=== PATIENT | male | born 1965 | race Hispanic/Latino ===

== ENCOUNTER 2019-12-27 07:46 | Outpatient (CLI) | payer BC ==
--- NOTE | 2019-12-27 08:48 | ULT ---
US Abdominal History: Abdominal pain Comparison: None. Findings: Real-time grayscale and color evaluation of the abdomen was performed. The visualized portion of the aorta, IVC, and pancreas are unremarkable. Diffuse increased hepatic ec hotexture without mass. Focal fatty sparing near the gallbladder fossa. Liver measures 18.2 cm in length. No pericholecystic fluid. Portal vein is patent with antegrade flow . Common bile duct is normal measuring 4 mm. Nonmobile sub-5 mm gallbladder polyps. Right kidney measures 11.4 x 6.4 x 6.1 cm without mass, hydronephrosis, or abnormal calcifications. L eft kidney measures 12.7 x 6.4 x 6.8 cm without mass, hydronephrosis, or abnormal calcifications. Spleen measures 13 cm in length. Impression: 1. Sub-5 mm gallbladder polyps for which no follow-up is required. No evidence for cholecystitis. 2. Hepatomegaly with mild diffuse increased echotexture suggesting steatosis with focal fatty sparing near the gallbladder fossa. 3. Mild hepatomegaly.
== END 2019-12-27 07:47 | disposition home or self-care (01) ==
LOC: SCSULT 07:46
PROVIDERS: ATTEND Family Medicine
DX: R10.84 Generalized abdominal pain (principal); R16.0 Hepatomegaly, not elsewhere classified; K82.4 Cholesterolosis of gallbladder
CPT/HCPCS: 93975

== ENCOUNTER 2020-01-07 10:17 | Outpatient (CLI) | payer BC ==
--- NOTE | 2020-01-07 10:58 | CT ---
CT Abdomen Pelvis W Con History: Right-sided abdominal pain Comparison: Ultrasound December 27, 2019 for reference Findings: Lung bases are clear. No pericardial effusion. Diffuse hepatic steatosis. No intrahepatic or extrahepatic biliary dilatation. Adrenal glands are unremarkable. No hydronephrosis. No retroperitoneal periaortic adenopathy. Although limited due to motion, there is some low-grade inflammatory change around the appendiceal ba se with mild mucosal hyperenhancement and some low-grade inflammation of the adjacent ileocolic mesentery. This has appearance of relatively recent partially resolved appendicitis. Moderate diverticular disease of the sigmoid colon without active current inflammation. Ileocecal ramon ction is normal. The aortoiliac contour is nonaneurysmal. Small fat-containing right indirect inguinal hernia. The cowart creas unremarkable. Adrenal glands are unremarkable. No hydronephrosis. Mild facet arthrosis lower lumbar spine. Impression: 1. Low-grade inflammatory stranding along the medial margin appendiceal base with mucosal hyperenhanc ement and stranding along the ileocolic mesentery. This has appearance of subacute resolving appendicitis. Underlying appendiceal base mass is felt somewhat less likely. Follow-up recommended. 2. Hepatic steatosis. 3. Moderate diverticular disease sigmoid colon without active current inflammation.
[2020-01-07] MEDS ORDERED: Iopamidol-370 76% 500 ML 1 ML ONE (14:50)
== END 2020-01-07 10:18 | disposition home or self-care (01) ==
LOC: BICCT 10:17
PROVIDERS: ATTEND Internal Medicine Gastroenterology
DX: Z12.11 Encounter for screening for malignant neoplasm of colon (principal); K76.0 Fatty (change of) liver, not elsewhere classified; R10.31 Right lower quadrant pain; K57.30 Diverticulosis of large intestine without perforation or abscess without bleeding
CPT/HCPCS: 74177; Q9967

== ENCOUNTER 2020-01-16 14:37 | Outpatient (CLI) | payer BC ==
[2020-01-16 15:54] LABS: #Basophils 0.1 thou/uL (0.0-0.2); #Eosinphils 0.2 thou/uL (0.0-0.7); #Lymphocytes 2.5 thou/uL (1.20-3.40); #Monocytes 0.6 thou/uL (0.11-0.59); #Neutrophils 3.1 thou/uL (1.40-6.50); %Eosinophils 3.6 % (0.0-10.0); %Monocytes 8.6 % (0.0-10.0); %Neutrophils 47.8 % (42.0-75.0); Hemoglobin 14.9 g/dL (14.0-18.0); Mean Corpuscular HGB CONC 33.2 g/dL (32.0-36.0); Mean Corpuscular Hemoglobin 31.8 pg (27.0-31.0); Mean Corpuscular Volume 95.7 fL (78.0-98.0); Mean Platelet Volume 11.8 fL (7.4-10.4); Platelet Count 138 thou/uL (130-400); RBC Distribution Width 11.9 % (11.5-14.5); Red Blood Cell (RBC) Count 4.69 mill/uL (4.70-6.10); White Blood Cell (WBC) Count 6.5 thou/uL (4.8-10.8)
[2020-01-16 16:18] LABS: ALT (SGPT) 33 U/L (8-55); AST (SGOT) 28 U/L (5-34); Albumin 3.9 g/dL (3.5-5.0); Alkaline Phosphatase 77 U/L (40-110); Anion Gap 13 mmol/L (10-20); BUN (Urea Nitrogen) 12 mg/dL (8.4-25.7); Bilirubin, Direct 0.1 mg/dL (0.1-0.3); Bilirubin, Total 0.4 mg/dL (0.2-1.2); Calc. Creatinine Clearance 0 mL/min (70-130); Calcium 8.8 mg/dL (7.8-10.44); Carbon Dioxide 23 mmol/L (22-29); Chloride 108 mmol/L (98-107); Estimated GFR-MDRD 81; Globulin 3.2 g/dL (2.4-3.5); Glucose 85 mg/dL (70-105); Potassium 3.8 mmol/L (3.5-5.1); Protein, Total 7.1 g/dL (6.0-8.3); Sodium 140 mmol/L (136-145)
--- NOTE | 2020-01-17 12:12 | EKG ---
Test Reason : Blood Pressure : / mmHG Vent. Rate : 057 BPM Atrial Rate : 057 BPM P-R Int : 122 ms QRS Dur : 084 ms QT Int : 424 ms P-R-T Axes : 005 063 -08 degrees QTc Int : 412 ms Sinus bradycardia Inferior infarct , age undetermined Abnormal ECG When compared with ECG of 16-FEB-2016 17:39, Vent. rate has decreased BY 71 BPM Inferior infarct is now Present T wave inversion more evident in Inferior leads Confirmed by LIANG DIEGO, DR. Stevenson ([id number]) on 01/17/2020 12:12:18 PM Referred By: RADHA Confirmed By:DR. Elva TAVERA MD
== END 2020-01-16 14:38 | disposition home or self-care (01) ==
LOC: LABBT 14:37
PROVIDERS: ATTEND Surgery
DX: Z01.818 Encounter for other preprocedural examination (principal); K36 Other appendicitis; R79.89 Other specified abnormal findings of blood chemistry
CPT/HCPCS: 80053; 80076; 85025; 93005; 93010

== ENCOUNTER 2020-01-17 05:41 | Day surgery (SDC) | payer BC ==
[2020-01-16 15:15] VITALS: BMI 28.1
[2020-01-17] MEDS ORDERED: Fentanyl 100 MCG/2 ML VIAL ONE (06:21)
[2020-01-17] MEDS ORDERED: Bupivacaine 0.25% HCL 30 ML VIAL ONE (06:56)
[2020-01-17] MEDS ORDERED: Lidocaine 1% w/Epinephrine 1:100K 20 ML VIAL ONE (06:56)
[2020-01-17] MEDS ORDERED: Midazolam HCl 2 mg/2 ml Vial ONE (07:24)
[2020-01-17] MEDS ORDERED: SUGAMMADEX SODIUM 200 MG/2 ML VIAL ONE ×2 (08:32→08:43)
[2020-01-17] MEDS ORDERED: SUGAMMADEX SODIUM 500 MG/5 ML VIAL ONE (08:43)
[2020-01-17] MEDS ORDERED: Lidocaine 1% PF 5 ML VIAL ONE (10:52)
[2020-01-17] MEDS ORDERED: Succinylcholine Chloride 20 MG/ML 10 ml SYRINGE FS ONE (10:52)
[2020-01-17] MEDS ORDERED: Rocuronium Bromide 10 MG/ML (10ML VIAL) ONE (10:52)
[2020-01-17] MEDS ORDERED: Ketorolac Tromethamine 30 MG/ML VIAL ONE (10:52)
[2020-01-17] MEDS ORDERED: Ondansetron PF 4 MG/2 ML Vial ONE (10:52)
[2020-01-17] MEDS ORDERED: Glycopyrrolate 0.2 MG/ML 5 ML SYRINGE ONE (10:52)
[2020-01-17] MEDS ORDERED: PROPOFOL 200 MG/20 ML VIAL ONE (10:52)
--- NOTE | 2020-01-17 11:45 | OP ---
DATE OF PROCEDURE: 01/17/2020 PREOPERATIVE DIAGNOSIS: Chronic appendicitis with elevated liver function. PROCEDURE PERFORMED: Laparoscopic appendectomy with wedge liver biopsy. INDICATIONS: A 54-year-old male, who had about a month of right lower quadrant abdominal pain that he had a CT scan showing what appeared to be a mass at the base of appendix with periappendiceal stranding. He also has elevated liver functions. FINDINGS: There was inflammatory changes around the appendix, primarily at the base. I was able to try and get below this to resect at the cecum. The liver just looked fatty. DESCRIPTION OF PROCEDURE: After an informed consent was obtained, the patient was taken to the operating room, given general endotracheal anesthesia. He was placed in the supine position. Abdomen was prepped and draped in usual fashion. Local anesthesia was infiltrated subcutaneously and deep. A subumbilical incision was performed, subcu divided sharply. The fascia was grasped. Two stay sutures of 0 Vicryl placed on either side of midline. Midline incised. Digital palpation revealed no local adhesions. A blunt 12-mm trocar inserted. Pneumoperitoneum was created to a pressure of 15 mmHg. A 0-degree laparoscope inserted under direct vision, two 5-mm ports were placed, one suprapubic, one right lateral abdomen. The appendix and the cecum were pretty high almost up by the liver. There were quite a bit of adhesions in the area, these were taken down. There was still some active inflammation and some swelling of the base of the appendix. The mesoappendix was divided utilizing the LigaSure. The appendix was then divided utilizing a linear 45 mm stapler at the cecum. The appendix was then placed in an Endosac, removed from the abdomen in the Endosac. The area was irrigated. Hemostasis was assured. Then, the liver was cut in a V-manner on the edge of the right lobe with Metzenbaum scissors and this piece of the liver was removed for analysis. Hemostasis was achieved with electrocautery, but I did also have to add some Evert powder for complete hemostasis. The abdomen was irrigated, irrigation fluid removed. Trocars were removed. The fascia was closed with interrupted 0 Vicryl suture. The skin was closed with interrupted 4-0 Rapide. Dermabond applied. The patient tolerated the procedure well, transferred to Recovery in good condition. Sponge and needle count verified correct x2. Job ID: [id number]
== END 2020-01-17 11:13 | disposition home or self-care (01) ==
LOC: SDC 05:41
PROVIDERS: ATTEND Surgery
PROC: 0FB04ZX Excision of Liver, Percutaneous Endoscopic Approach, Diagnostic (ICD-10-PCS; principal; 2020-01-17)
PROC: 0DTJ4ZZ Resection of Appendix, Percutaneous Endoscopic Approach (ICD-10-PCS; principal; 2020-01-17)
DX: K36 Other appendicitis (principal); K76.0 Fatty (change of) liver, not elsewhere classified; K74.0 Hepatic fibrosis
CPT/HCPCS: 88304; 88307; 88313; J0690; J0694; J1885; J2001; J2250; J2405; J2704; J3010; S0020

== ENCOUNTER 2020-06-28 00:27 | Inpatient (IN) | payer BC, OTHER ==
[2020-06-28] MEDS ORDERED: Dexamethasone 10 MG/ML VIAL ONE (01:00)
[2020-06-28] MEDS ORDERED: cefTRIAXone\\ROCEPHIN 1 GM VIAL ONE (01:00)
[2020-06-28 01:09] LABS: #Monocytes 0.8 thou/uL (0.11-0.59); #Neutrophils 11.8 thou/uL (1.40-6.50); %Basophils 0.1 % (0.0-1.0); %Lymphocytes 7.5 % (21.0-51.0); %Monocytes 5.6 % (0.0-10.0); %Neutrophils 86.7 % (42.0-75.0); Hemoglobin 17.2 g/dL (14.0-18.0); Mean Corpuscular HGB CONC 32.8 g/dL (32.0-36.0); Mean Corpuscular Volume 94.3 fL (78.0-98.0); Mean Platelet Volume 11.4 fL (7.4-10.4); Platelet Count 120 thou/uL (130-400); RBC Distribution Width 12.4 % (11.5-14.5); Red Blood Cell (RBC) Count 5.57 mill/uL (4.70-6.10); White Blood Cell (WBC) Count 13.6 thou/uL (4.8-10.8)
[2020-06-28 01:30] LABS: ALT (SGPT) 62 U/L (8-55); AST (SGOT) 55 U/L (5-34); Albumin 3.9 g/dL (3.5-5.0); Alkaline Phosphatase 66 U/L (40-110); Anion Gap 16 mmol/L (10-20); BUN (Urea Nitrogen) 16 mg/dL (8.4-25.7); Bilirubin, Total 0.8 mg/dL (0.2-1.2); CK (CPK) 620 U/L (30-200); Calc. Creatinine Clearance 0 mL/min (70-130); Calcium 8.4 mg/dL (7.8-10.44); Carbon Dioxide 20 mmol/L (22-29); Chloride 105 mmol/L (98-107); Estimated GFR-MDRD 85; Globulin 3.8 g/dL (2.4-3.5); Glucose 137 mg/dL (70-105); Lipase 46 U/L (8-78); Potassium 3.7 mmol/L (3.5-5.1); Protein, Total 7.7 g/dL (6.0-8.3); Sodium 137 mmol/L (136-145)
[2020-06-28] MEDS ORDERED: Azithromycin 500 MG VIAL ONE (02:11)
[2020-06-28] MEDS ORDERED: Aspirin Chewable 81 MG TAB ONE (02:48)
[2020-06-28] MEDS ORDERED: Enoxaparin Sodium 80 MG/0.8 ML SYRINGE ONE (02:53)
--- NOTE | 2020-06-28 03:02 | PDOC.FPRHP ---
- History of Present Illness History of Present Illness: Pt is a 54 yo male with hx of recent travel to [place] and hx of PNA who presents with SOB. 2 weeks ago had fever for 2 days, Tmax 101F, resolved. Yesterday started having SOB, worse with activity. Traveled to [place] one week ago, had symptoms of sore throat and diagnosed with possible pneumonia and given antibiotics for 5 days, finished. Worsening of symptoms so drove here from [place] last night. Productive cough, with white sputum, no wheezing. Was hospitalized in 2016 for CAP with extensive work up. PFT's showed mild restrictive lung disease. Denies n/v, diarrhea, CAT, vision changes, dysuria, sick contacts, CP, palpitations. ED Course: Decadron, Azithromycin, Rocephin, therapeutic lovenox, 1L NS - Allergies/Adverse Reactions Allergies Allergy/AdvReac Type Severity Reaction Status Date / Time No Known Allergies Allergy Verified 01/16/20 15:15 - Home Medications Medication Instructions Recorded Confirmed Type No Known 01/16/20 06/28/20 History - History PMHx: PNA- 4 years ago PSHx: appendix-12/2019 FHx: DM, HTN Social: no Tobacco, drinks a couple of beers a day, no drug use, works as a pipefitter welder meds: none NKDA - Review of Systems General: reports: fever/chills Eyes: denies: vision changes ENT: denies: nasal congestion Respiratory: reports: cough, shortness of breath Cardiovascular: denies: chest pain, palpitation Gastrointestinal: denies: nausea, vomiting, diarrhea Genitourinary: denies: dysuria, polyuria Skin: denies: rashes, itching Musculoskeletal: denies: pain, tenderness Neurological: denies: numbness, syncope Psychological: denies: anxiety, depression - Vital signs BP: 141/95, MAP: 110, Pulse: 92, Resp: 36, Temp: 97.8 (Oral), Pain: 0, O2 sat: 94 on (3L Oxygen), - Physical Exam Constitutional: NAD, awake, alert and oriented HEENT: normocephalic and atraumatic, EOMI, no scleral icterus, grossly normal vision, grossly normal hearing Neck: supple, FROM, trachea midline Chest: no-tender to palpation Heart: RRR -Lungs: mild increased resp effort, no audible wheeze, on supplemental oxygen, bilat symmetrical chest rise Abdomen: soft, non-tender, bowel sounds present, no masses/distention Musculoskeletal: normal structure, normal tone, ROM grossly normal Neurological: no focal deficit Skin: no rash/lesions, good turgor Heme/Lymphatic: no unusual bruising or bleeding Psychiatric: normal mood and affect, intact recent and remote memory FMR H&P: Results - Labs Result Diagrams: 06/28/20 04:46 06/28/20 00:57 Lab results: WBC 13.6 thou/uL (4.8-10.8) H 06/28/20 00:57 Hgb 17.2 g/dL (14.0-18.0) 06/28/20 00:57 Hct 52.5 % (42.0-52.0) H 06/28/20 00:57 MCV 94.3 fL (78.0-98.0) 06/28/20 00:57 Plt Count 120 thou/uL (130-400) L 06/28/20 00:57 Neutrophils % 86.7 % (42.0-75.0) H 06/28/20 00:57 Sodium 137 mmol/L (136-145) 06/28/20 00:57 Potassium 3.7 mmol/L (3.5-5.1) 06/28/20 00:57 Chloride 105 mmol/L (98-107) 06/28/20 00:57 Carbon Dioxide 20 mmol/L (22-29) L 06/28/20 00:57 BUN 16 mg/dL (8.4-25.7) 06/28/20 00:57 Creatinine 0.93 mg/dL (0.7-1.3) 06/28/20 00:57 Glucose 137 mg/dL (70-105) H 06/28/20 00:57 Lactic Acid 1.5 mmol/L (0.5-2.2) 06/28/20 00:57 Calcium 8.4 mg/dL (7.8-10.44) 06/28/20 00:57 Total Bilirubin 0.8 mg/dL (0.2-1.2) 06/28/20 00:57 AST 55 U/L (5-34) H 06/28/20 00:57 ALT 62 U/L (8-55) H 06/28/20 00:57 Alkaline Phosphatase 66 U/L (40-110) 06/28/20 00:57 Creatine Kinase 620 U/L (30-200) H 06/28/20 00:57 B-Natriuretic Peptide 20.0 pg/mL (0-100) 06/28/20 00:57 Serum Total Protein 7.7 g/dL (6.0-8.3) 06/28/20 00:57 Albumin 3.9 g/dL (3.5-5.0) 06/28/20 00:57 Lipase 46 U/L (8-78) 06/28/20 00:57 FMR H&P: A/P - Plan #Acute Hypoxic Resp Failure and Sepsis 2/2 likely COVID PNA - leukocytosis w/ lymphopenia - pending: COVID swab, RVP, ferritin, LDH, procal, urine legionella and strep - continue Rocephin, Azithromycin, Decadron - supplemental oxygen as needed, wean as tolerated - therapeutic lovenox - tylenol prn fever - duonebs prn - currently satting well on 3L NC, wean as tolerated - can consider ID consult in am to see if he qualifies for remdesevir or convalescent plasma #Travel to [place] - pending quant gold #thrombocytopenia - pending PBS Diet: regular Code: Full DVT PPx: ther lovenox Dispo: admit inpatient medical, continue to monitor resp status, LOS>48hrs FMR H&P: Upper Level - Plan Date/Time: 06/28/20 0302 INeda MD, have evaluated this patient and agree with findings/plan as outlined by psychology intern resident. Pertinent changes/additions are listed here. This is a 54yo M who presents to the ER due to increasingly worse SOB. He reports that he had fever for 2 days last week. He was in [place] and went to a clinic there where he was diagnosed with a "sore throat and pneumonia." He was given a 5 day course of abx. He reports that his SOB got worse yesterday which prompted him to drive back here from [place] to get checked out. He states that he has not had fever since last week. Endorses cough with sputum. Denies any chest pain, palpitations, NVD, headache, vision changes, LE swelling. He denies any sick contacts. Reports that about 4 years ago he was hospitalized here for a PNA and tested negative for TB at that time. Does not use O2 at baseline. In the ER patient given rocephin, azithro, decadron, th lovenox, 1L NS. On exam , the patient looked comfortably, mild increased resp effort. Using NC. Otherwise unremarkable. Plan: Will admit to medical for acute hypoxic resp failure and sepsis 2/2 likely COVID PNA. CTA neg for PE. Leukocytosis with lymphopenia. COVID pending. Will continue rocephin and azithro and decadron. Will continue th lovenox. Will get additional labs including LDH, ferritin, procal, CRP. Consider ID consult to see if patient candidate for conv plasma and remdesivir due to O2 requirement and if COVID results come back positive. Will get urine strep and legionella as well. Due to travel to [place] will get quantGold to r/o TB. Dispo: admit to medical, inpt Code: FULL Diet: reg Ppx: th lovenox Case to be discussed with Dr. Norman. Addendum - Attending - Attending Attestation Date/Time: 06/28/20 3830 I personally evaluated the patient and discussed the management with Dr. Guerrero. I agree with the History, Examination, Assessment and Plan documented above with any addition or exceptions noted below. The patient is admitted for Covid. He has been feeling ill for 2 weeks with fever, cough, shortness of breath. The dyspnea worsened and he drove back from [place] to seek treatment. He is requiring oxygen. Will discuss plasma, remdesivir with ID.
[2020-06-28] MEDS ORDERED: Acetaminophen 325 MG TAB PO PRN (03:57)
[2020-06-28 04:38] LABS: SARS-CoV-2 NAA Rapid Test DETECTED (NotDetected)
[2020-06-28 05:28] LABS: Hemoglobin 15.7 g/dL (14.0-18.0); Mean Corpuscular HGB CONC 32.7 g/dL (32.0-36.0); Mean Corpuscular Hemoglobin 31.1 pg (27.0-31.0); Mean Corpuscular Volume 95.2 fL (78.0-98.0); RBC Distribution Width 12.4 % (11.5-14.5); Red Blood Cell (RBC) Count 5.05 mill/uL (4.70-6.10); White Blood Cell (WBC) Count 11.2 thou/uL (4.8-10.8)
[2020-06-28 05:30] LABS: Hemoglobin A1c 6.5 % (4.0-6.0)
--- NOTE | 2020-06-28 05:38 | PDOC.FM ---
- Subjective Subjective: Patient was resting comfortably in bed at the time of evaluation. He denied any acute overnight events, but did state that he continued to feel SOB, especially after coughing. - Objective Result Diagrams: 06/28/20 04:46 06/28/20 00:57 Phys Exam - Physical Examination Constitutional: NAD HEENT: moist MMs, sclera anicteric, oral pharynx no lesions Neck: no nodes, supple, full ROM Respiratory: no wheezing, no rales, no rhonchi, clear to auscultation bilateral Intermittent coughing during evaluation Cardiovascular: RRR, no significant murmur, no rub Gastrointestinal: soft, non-tender, no distention, positive bowel sounds Musculoskeletal: no edema, pulses present Neurological: non-focal, moves all 4 limbs Lymphatic: no nodes Psychiatric: normal affect Skin: no rash Dx/Plan (1) DM2 (diabetes mellitus, type 2) Status: Acute (2) COVID-19 Code(s): U07.1 - COVID-19 Status: Acute (3) Transaminitis Code(s): R74.0 - NONSPEC ELEV OF LEVELS OF TRANSAMNS & LACTIC ACID DEHYDRGNSE Status: Acute (4) Sepsis Code(s): A41.9 - SEPSIS, UNSPECIFIED ORGANISM Status: Acute (5) Thrombocytopenia Code(s): D69.6 - THROMBOCYTOPENIA, UNSPECIFIED Status: Acute - Plan Plan: Patient is a 54 y/o male who recently immigrated from [place] for medical treatment who presents with signs and symptoms suspicious for COVID-19 Pneumonia. #Acute Hypoxic Resp Failure and Sepsis 2/2 COVID PNA -2W worsening fevers, cough, sore throat, SOB that did not respond to unknown ABx regimen in [place] -Leukocytosis, tachycardia and new O2 requirement -CXR: Official read pending - suspicious for COVID-19 PNA -CTA: Official read pending - no evidence of PE -s/p Azithromycin, Ceftriaxone, Dexamethasone and therapeutic Lovenox in the ED - will continue -COVID-19 Swab: Positive -Pending: RVP, Ferritin, LDH, Procal, Urine Legionella and Strep -Will consider ID consult for Remdesivir and Convalescent Plasma based on above results #Thrombocytopenia -Plt Count: 120 -Peripheral Smear: Pending #Travel to [place] -Quant Gold: Pending #DM2 -Patient endorses a strong FHx of DM2 -HgA1c: 6.5 -Will initiate Metformin 500 mg PO daily PCP: CC Code: Full Diet: HH w/ Low Sodium Activity: Ad milady VTE PPx: Therapeutic Lovenox GI PPx: None Dispo: Patient is currently stable and admitted to the Medical Floor for ongoing evaluation of Acute Hypoxic Respiratory Failure and Sepsis 2/2 COVID-19 Pneumonia. Will continue ABx, steroids, supplemental O2 and await lab results as per above. If patient is confirmed to have COVID-19 PNA, will consider adding Remdesivir and Convalescent Plasma to medication regimen. Expected LOS > 48H. Addendum - Attending - Attending Attestation Date/Time: 06/28/20 1702 I personally evaluated the patient and discussed the management with Dr. Tolentino. I agree with the History, Examination, Assessment and Plan documented above with any addition or exceptions noted below. Pt admitted with acute hypoxic respiratory failure 2/2 covid PNA. Pt on dexamethasone. He has had symptoms for a few weeks. Will discuss whether he would qualify for plasma with ID. Pt currently on 3 L NC. Will monitor and wean as able.
[2020-06-28 06:19] LABS: Band 20 % (5-11); Differential Comment Plasma-cytoid Cells; Large Platelets SLIGHT; Lymphocytes 5 % (21-51); MDiff Complete? YES; Mean Platelet Volume 11.7 fL (7.4-10.4); Monocytes 3 % (0-10); Neutrophil 69 % (42-75); Platelet Count 112 thou/uL (130-400); Platelet Morphology Comment Appears Decreased; RBC Morphology Normal; Reflex for Review?? YES
--- NOTE | 2020-06-28 07:53 | RAD ---
Exam: Chest one view HISTORY:Dyspnea Comparison: 02/16/2016, 05/26/2016 FINDINGS: Cardiac silhouette: Normal Aorta: Unremarkable Pulmonary vessels: Normal Costophrenic angles: Clear LUNGS: Hypoventilation with accentuation lung parenchyma. Chronic changes. Pneumothorax: None Osseous abnormalities: None IMPRESSION: Chronic lung parenchymal changes.
--- NOTE | 2020-06-28 08:21 | CT ---
PRELIMINARY REPORT/[facility]/EMERGENCY AFTER HOURS PROCEDURE EXAM: CTA Chest with Intravenous Contrast CLINICAL HISTORY: SOB ONSET YESTERDAY, PRODUCTIVE COUGH. TECHNIQUE: Axial CTA images of the chest with intravenous contrast. Three-dimensional MIP/volume rendered reform ations were performed. CONTRAST: With; ISOVUE 370,100mL COMPARISON: None provided. FINDINGS: PULMONARY ARTERIES There is no intraluminal filling defect suspicious for PE. AORTA No thoracic aortic aneurysm or dissection. LUNGS Bilateral right greater than left basilar predominant groundglass opacities and interstitial thickeni ng. PLEURAL SPACES No pleural effusion. No pneumothorax. HEART AND MEDIASTINUM Cardiomegaly. No significant pericardial effusion. LYMPH NODES Multiple prominent hilar lymph nodes. BONES No focal osseous abnormality or acute fracture. CHEST WALL AND UPPER ABDOMEN Diffuse decreased parenchymal attenuation of the liver. Images through the upper abdomen are otherwi se unremarkable. The chest wall is unremarkable. IMPRESSION: 1. No acute pulmonary thromboembolism. 2. Right greater than left bibasilar predominant groundglass and interstitial opacities with bilater al prominence is slightly enlarged hilar nodes. Findings could represent viral infection, chronic eosinophilic pneumonia or cryptogenic organizing pneumonia. 3. Hepatic steatosis. 4. Cardiomegaly. ELECTRONICALLY SIGNED BY: Orestes Means DO Jun 28, 2020 2:33:25 AM CDT This report is intended for review by the ordering physician only, in accordance of law. If you recei ve this report in error, please call [facility] at [phone]. FINAL REPORT Exam: CT angiogram of the chest HISTORY: Shortness of breath. Productive cough. COMPARISON: None TECHNIQUE: CT angiogram of the chest is performed in the axial plane. Three-dimensional reformatted i mages are submitted for interpretation FINDINGS: Mediastinum: No mass, lymphadenopathy or hematoma. HEART: Upper normal cardiac silhouette. No significant pericardial effusion. Aorta: No aneurysm or dissection Upper solid abdominal viscera: Diffuse hypoattenuation of the liver compatible with hepatic steatosis . Trachea and central bronchi: Patent Pleural spaces: No effusion Lung parenchyma: Diffuse groundglass opacities, with a predominantly peripheral distribution. Finding s may represent pulmonary edema. Atypical infection including COVID pneumonia cannot be entirely excluded though the pattern of distribution is slightly atypical for COVID-19. Pneumothorax: None Osseous structures: No lytic or blastic lesions Pulmonary arteries:Limited evaluation of the pulmonary arterial system to the level of the lobar art eries due to timing of contrast bolus. No filling defect to suggest thromboembolism. IMPRESSION: 1. No evidence of pulmonary artery embolism to the level of the lobar arteries. 2. Groundglass opacities as detailed above. Correlate for volume overload versus atypical pneumonia i ncluding COVID-19. 3. This report is in agreement with initial report by [facility] Transcribed Date/Time: 06/28/2020 10:10 AM
[2020-06-28] MEDS: Enoxaparin Sodium 80 MG/0.8 ML SYRINGE SC SCH ×2 (09:47→21:06)
[2020-06-28] MEDS: Dexamethasone 4 mg/ml Vial SLOW IVP SCH ×2 (09:47→21:07)
[2020-06-28] MEDS ORDERED: hydrALAZINE 10 MG TAB PO PRN (10:07)
[2020-06-28 10:44] LABS: HBSAg Index 0.19 S/CO (0-0.99); Hep B Surf Ag Non-Reactive S/CO (NonReactive)
[2020-06-28 10:48] LABS: HBSAB Concentration Less than 8.00 mIU/mL; Hep B Surf AB Non-Reactive (NonReactive); Hep C IgG Ab Non-Reactive (NonReactive); Hep C Index 0.21 S/CO (0-0.79)
[2020-06-28] MEDS ORDERED: Iopamidol-370 76% 500 ML 1 ML ONE (10:48)
[2020-06-28] MEDS ORDERED: Dexamethasone 4 MG in Sodium Chloride 0.9% 50 ML IVPB SCH ×2 (13:00→21:00)
[2020-06-28 17:49] LABS: Legionella Urinary Ag Negative (Negative); Strep pneumo Urine Ag NEGATIVE (NEGATIVE)
[2020-06-29] MEDS: cefTRIAXone\\ROCEPHIN 2 GM in Sodium Chloride 0.9% 100 ML IVPB SCH (00:47)
[2020-06-29] MEDS: Azithromycin 250 MG TAB PO SCH (05:13)
--- NOTE | 2020-06-29 05:25 | PDOC.FM ---
- Subjective Subjective: Patient was resting in bed at the time of evaluation. He denied any acute overnight events, such as chest pain, nausea or vomiting, but did state that he continue to feel short of breath and noticed that it became especially bad when he had to ambulate to the bathroom. Per chart review, patient's O2 requirement increased from 3 to 4L O2 via nasal cannula, with O2Sats remaining in the low- to mid-90s. - Objective Vital Signs & Weight: Vital Signs (12 hours) Temp Pulse Resp BP Pulse Ox 06/29/20 00:20 94 L 06/29/20 00:00 98.3 F 90 28 H 120/80 95 06/28/20 21:37 98.2 F 82 24 H 139/88 91 L 06/28/20 20:00 94 L Weight Weight 81.6 kg I&O: 06/27/20 06/28/20 06/29/20 06:59 06:59 06:59 Intake Total 800 Output Total 375 Balance 425 Result Diagrams: 06/28/20 04:46 06/28/20 00:57 Phys Exam - Physical Examination Constitutional: NAD HEENT: moist MMs, sclera anicteric, oral pharynx no lesions Neck: supple, full ROM Respiratory: no wheezing, no rales, no rhonchi, clear to auscultation bilateral Mild tachypnea Cardiovascular: RRR, no significant murmur, no rub Gastrointestinal: soft, non-tender, no distention, positive bowel sounds Musculoskeletal: no edema, pulses present Neurological: non-focal, moves all 4 limbs Psychiatric: normal affect Skin: no rash Dx/Plan (1) DM2 (diabetes mellitus, type 2) Status: Acute (2) COVID-19 Code(s): U07.1 - COVID-19 Status: Acute (3) Transaminitis Code(s): R74.0 - NONSPEC ELEV OF LEVELS OF TRANSAMNS & LACTIC ACID DEHYDRGNSE Status: Acute (4) Sepsis Code(s): A41.9 - SEPSIS, UNSPECIFIED ORGANISM Status: Acute (5) Thrombocytopenia Code(s): D69.6 - THROMBOCYTOPENIA, UNSPECIFIED Status: Acute - Plan Plan: Patient is a 54 y/o male who recently immigrated from [place] for medical treatment who presents with signs and symptoms suspicious for COVID-19 Pneumonia. #Acute Hypoxic Resp Failure and Sepsis 2/2 COVID PNA -2W worsening fevers, cough, sore throat, SOB that did not respond to unknown ABx regimen in [place] -Leukocytosis, tachycardia and new O2 requirement -CXR: Chronic parenchymal changes -CTA: Bibasilar ground glass opacities, hepatic steatosis, no PE -s/p Azithromycin, Ceftriaxone, Dexamethasone and therapeutic Lovenox in the ED - will continue -COVID-19 Swab: Positive -RVP: Negative -Ferritin: 2476 -LDH: 582 -Procal: 0.37 -Urine Legionella/Strep: Negative -After discussing this case with ID, patient does not meet criteria for Remdesivir or Convalescent Plasma due to prolonged nature of current infection - will continue with ABx, steroids and supplemental O2 as per above #Thrombocytopenia -Plt Count: 120 -Peripheral Smear: Pending #Transaminitis -AST: 55 / ALT: 62 -CTA: Bibasilar ground glass opacities, hepatic steatosis, no PE -Hepatitis Panel: No evidence for acute/chronic HepA, HepB or HepC infection -Suspect EtOH involvement - patient endorses drinking "a few beers every day", but denies outright EtOH Abuse #Travel to [place] -Quant Gold: Pending #DM2 -Patient endorses a strong FHx of DM2 -HgA1c: 6.5 -Will initiate Metformin 500 mg PO daily PCP: CC Code: Full Diet: HH w/ Low Sodium Activity: Ad milady VTE PPx: Therapeutic Lovenox GI PPx: None Dispo: Patient is currently stable and admitted to the Medical Floor for ongoing evaluation of Acute Hypoxic Respiratory Failure and Sepsis 2/2 COVID-19 Pneumonia. Will continue ABx, steroids, supplemental O2 and await additional lab results as per above. If patient's O2 requirement continues to increase, patient may require transition from nasal cannula to CPAP/BiPAP or HFNC. Expected LOS >48H. Addendum - Attending - Attending Attestation Date/Time: 06/29/20 9143 I personally evaluated the patient and discussed the management with Dr. Tolentino. I agree with the History, Examination, Assessment and Plan documented above with any addition or exceptions noted below. The patient's oxygen requirement has increased to 5 liters. He was very comfortable during my visit but he was short of breath during Dr. Tolentino's visit. If his respiratory status decompensates, he will need to transition to high flow. He has had symptoms for several weeks and is not a candidate for remdesivir or plasma. He remains on steroids.
[2020-06-29] MEDS: Benzonatate 100 MG CAP PO PRN ×3 (06:21→19:39)
[2020-06-29] MEDS ORDERED: Dexamethasone 4 MG in Sodium Chloride 0.9% 50 ML IVPB SCH (07:05)
[2020-06-29] MEDS: Dexamethasone 4 mg/ml Vial SLOW IVP SCH ×2 (09:46→19:38)
[2020-06-29] MEDS: Enoxaparin Sodium 80 MG/0.8 ML SYRINGE SC SCH ×2 (09:46→19:38)
[2020-06-29 12:38] LABS: Actual Bicarbonate (HCO3a) 16.8 mEq/L (22-28); Base Excess (BEa) -5.7 mEq/L (-2.0 to +3.0); CO2 Tension 26.6 mmHg (35.0-45.0); Calcium, Ionized (arterial) 1.13 mmol/L (1.12-1.30); Carboxyhemoglobin (COHb) 0.5 gm% (0.0-3.0); Hemoglobin (Hb) 16.5 g/dL (14.0-18.0); Potassium - ABG Lab 3.97 mmol/L (3.70-5.30); pH, Arterial 7.42 (7.35-7.45)
[2020-06-29 12:41] LABS: O2 Tension (PaO2), arterial 47.7 mmHg (80.0-100.0); Puncture Site RR
[2020-06-30] MEDS: cefTRIAXone\\ROCEPHIN 2 GM in Sodium Chloride 0.9% 100 ML IVPB SCH (01:58)
[2020-06-30] MEDS ORDERED: Benzonatate 100 MG CAP PO SCH (02:45)
[2020-06-30] MEDS: Azithromycin 250 MG TAB PO SCH (05:09)
--- NOTE | 2020-06-30 06:08 | PDOC.FM ---
- Subjective Subjective: Patient was laying bed, watching TV, at the time of evaluation. Patient denied any acute overnight events, particularly with regard to chest pain, and stated that his respiratory function had improved greatly since being started on HFNC, although the patient did state that it was somewhat uncomfortable. - Objective Vital Signs & Weight: Vital Signs (12 hours) Temp Pulse Resp BP Pulse Ox 06/30/20 03:05 97.9 F 72 28 H 119/81 92 L 06/30/20 00:00 98 F 69 24 H 134/84 96 06/29/20 20:00 94 L 06/29/20 19:40 98 F 73 32 H 149/90 H 94 L Weight Weight 81.6 kg I&O: 06/28/20 06/29/20 06/30/20 06:59 06:59 06:59 Intake Total 800 880 Output Total 375 375 Balance 425 505 Result Diagrams: 06/30/20 06:19 06/30/20 06:19 Phys Exam - Physical Examination Constitutional: NAD HEENT: moist MMs, sclera anicteric, oral pharynx no lesions Neck: no nodes, supple, full ROM Respiratory: no wheezing, no rales, no rhonchi, clear to auscultation bilateral Mildly tachypneic Cardiovascular: RRR, no significant murmur, no rub Gastrointestinal: soft, non-tender, no distention, positive bowel sounds Musculoskeletal: no edema, pulses present Char(-) x2 Neurological: non-focal, moves all 4 limbs Lymphatic: no nodes Psychiatric: normal affect Skin: no rash Dx/Plan (1) DM2 (diabetes mellitus, type 2) Status: Acute (2) COVID-19 Code(s): U07.1 - COVID-19 Status: Acute (3) Transaminitis Code(s): R74.0 - NONSPEC ELEV OF LEVELS OF TRANSAMNS & LACTIC ACID DEHYDRGNSE Status: Acute (4) Sepsis Code(s): A41.9 - SEPSIS, UNSPECIFIED ORGANISM Status: Acute (5) Thrombocytopenia Code(s): D69.6 - THROMBOCYTOPENIA, UNSPECIFIED Status: Acute - Plan Plan: Patient is a 54 y/o male who recently immigrated from [place] for medical treatment who presents with signs and symptoms suspicious for COVID-19 Pneumonia. #Acute Hypoxic Resp Failure and Sepsis 2/2 COVID PNA -2W worsening fevers, cough, sore throat, SOB that did not respond to unknown ABx regimen in [place] -Leukocytosis, tachycardia and new O2 requirement - currently on High Flow NC at 35L w/ FiO2 of 55% -CXR: Chronic parenchymal changes -CTA: Bibasilar ground glass opacities, hepatic steatosis, no PE -s/p Azithromycin, Ceftriaxone, Dexamethasone and therapeutic Lovenox in the ED - will continue -COVID-19 Swab: Positive -RVP: Negative -Ferritin: 2476 -LDH: 582 -Procal: 0.37 -Urine Legionella/Strep: Negative -After discussing this case with ID, patient does not meet criteria for Remdesivir or Convalescent Plasma due to prolonged nature of current infection - will continue with ABx, steroids and supplemental O2 as per above -Per chart review, patient was hospitalized in 2016 with CAP, culture negative - all additional testing performed at that time appears to be negative #Thrombocytopenia -Plt Count: 120 -Peripheral Smear: Pending #Transaminitis -AST: 55 / ALT: 62 - will continue to trend -CTA: Bibasilar ground glass opacities, hepatic steatosis, no PE -Hepatitis Panel: No evidence for acute/chronic HepA, HepB or HepC infection -Suspect EtOH involvement - patient endorses drinking "a few beers every day", but denies outright EtOH Abuse #Travel to [place] -Quant Gold: Pending #DM2 -Patient endorses a strong FHx of DM2 -HgA1c: 6.5 -Will initiate Metformin 500 mg PO daily PCP: CC Code: Full Diet: HH w/ Low Sodium Activity: Ad milady VTE PPx: Therapeutic Lovenox GI PPx: None Dispo: Patient is currently stable and admitted to the Medical Floor for ongoing evaluation of Acute Hypoxic Respiratory Failure and Sepsis 2/2 COVID-19 Pneumonia. Will continue ABx, steroids, supplemental O2 and await additional lab results as per above. Will monitor O2Sats closely and escalate supplemental O2 as needed. Expected LOS >48H. Addendum - Attending - Attending Attestation Date/Time: 06/30/20 2681 I personally evaluated the patient and discussed the management with Dr. Tolentino. I agree with the History, Examination, Assessment and Plan documented above with any addition or exceptions noted below. Patient currently on HFNC, sats stable. Continue steroids and supportive care for his COVID hypoxic respiratory failure.
[2020-06-30 06:32] LABS: #Lymphocytes 0.8 thou/uL (1.20-3.40); #Monocytes 0.8 thou/uL (0.11-0.59); #Neutrophils 10.1 thou/uL (1.40-6.50); %Basophils 0.1 % (0.0-1.0); %Eosinophils 0.1 % (0.0-10.0); %Lymphocytes 6.6 % (21.0-51.0); %Monocytes 6.8 % (0.0-10.0); %Neutrophils 86.5 % (42.0-75.0); Hemoglobin 15.3 g/dL (14.0-18.0); Mean Corpuscular HGB CONC 32.4 g/dL (32.0-36.0); Mean Corpuscular Hemoglobin 30.7 pg (27.0-31.0); Mean Corpuscular Volume 94.6 fL (78.0-98.0); Mean Platelet Volume 11.3 fL (7.4-10.4); Platelet Count 182 thou/uL (130-400); RBC Distribution Width 12.4 % (11.5-14.5); Red Blood Cell (RBC) Count 4.98 mill/uL (4.70-6.10); White Blood Cell (WBC) Count 11.7 thou/uL (4.8-10.8)
[2020-06-30 06:52] LABS: ALT (SGPT) 56 U/L (8-55); AST (SGOT) 45 U/L (5-34); Albumin 3.1 g/dL (3.5-5.0); Alkaline Phosphatase 57 U/L (40-110); Anion Gap 14 mmol/L (10-20); BUN (Urea Nitrogen) 22 mg/dL (8.4-25.7); Bilirubin, Total 0.3 mg/dL (0.2-1.2); Calc. Creatinine Clearance 119 mL/min (70-130); Calcium 7.9 mg/dL (7.8-10.44); Carbon Dioxide 20 mmol/L (22-29); Chloride 107 mmol/L (98-107); Estimated GFR-MDRD Greater than 90; Globulin 3.2 g/dL (2.4-3.5); Glucose 250 mg/dL (70-105); Potassium 4.2 mmol/L (3.5-5.1); Protein, Total 6.3 g/dL (6.0-8.3); Sodium 137 mmol/L (136-145)
[2020-06-30] MEDS: Enoxaparin Sodium 80 MG/0.8 ML SYRINGE SC SCH (08:10)
[2020-06-30] MEDS: Dexamethasone 4 mg/ml Vial SLOW IVP SCH ×2 (08:10→20:09)
[2020-06-30] MEDS: Benzonatate 100 MG CAP PO PRN ×2 (08:10→20:09)
[2020-06-30] MEDS ORDERED: Dextrose 50% Abboject 50 ML SYRINGE SLOW IVP PRN (12:12)
[2020-06-30] MEDS ORDERED: Dextrose 5% in Water 1,000 ML IV PRN (12:12)
[2020-06-30] MEDS: HumaLOG 300 UNITS/3 ML VIAL SC PRN (13:31)
[2020-07-01] MEDS: cefTRIAXone\\ROCEPHIN 2 GM in Sodium Chloride 0.9% 100 ML IVPB SCH (00:32)
[2020-07-01] MEDS: Azithromycin 250 MG TAB PO SCH (04:44)
[2020-07-01] MEDS: HumaLOG 300 UNITS/3 ML VIAL SC PRN ×2 (04:57→16:49)
[2020-07-01 05:52] LABS: Hemoglobin 15.7 g/dL (14.0-18.0); Mean Corpuscular HGB CONC 32.1 g/dL (32.0-36.0); Mean Corpuscular Hemoglobin 30.4 pg (27.0-31.0); Mean Corpuscular Volume 94.9 fL (78.0-98.0); Mean Platelet Volume 11.5 fL (7.4-10.4); Platelet Count 197 thou/uL (130-400); RBC Distribution Width 12.2 % (11.5-14.5); Red Blood Cell (RBC) Count 5.16 mill/uL (4.70-6.10); White Blood Cell (WBC) Count 9.7 thou/uL (4.8-10.8)
[2020-07-01 05:54] LABS: ALT (SGPT) 77 U/L (8-55); AST (SGOT) 43 U/L (5-34); Albumin 3.2 g/dL (3.5-5.0); Alkaline Phosphatase 65 U/L (40-110); Anion Gap 15 mmol/L (10-20); BUN (Urea Nitrogen) 21 mg/dL (8.4-25.7); Bilirubin, Total 0.5 mg/dL (0.2-1.2); Calc. Creatinine Clearance 123 mL/min (70-130); Carbon Dioxide 20 mmol/L (22-29); Chloride 105 mmol/L (98-107); Estimated GFR-MDRD Greater than 90; Globulin 3.3 g/dL (2.4-3.5); Glucose 200 mg/dL (70-105); Potassium 4.2 mmol/L (3.5-5.1); Protein, Total 6.5 g/dL (6.0-8.3); Sodium 136 mmol/L (136-145)
[2020-07-01 05:58] LABS: #Lymphocytes 0.9 thou/uL (1.20-3.40); #Monocytes 0.4 thou/uL (0.11-0.59); #Neutrophils 8.4 thou/uL (1.40-6.50); %Eosinophils 0.1 % (0.0-10.0); %Monocytes 4.4 % (0.0-10.0); %Neutrophils 86.5 % (42.0-75.0)
[2020-07-01] MEDS: Albuterol 200 PUFF (6.7GM INHALER) INH PRN ×2 (06:02→20:40)
--- NOTE | 2020-07-01 06:07 | PDOC.FM ---
- Subjective Subjective: Patient was resting comfortably in bed at the time of evaluation. Patient's main complaint overnight was an inability to sleep well due to the HFNC, and moderate SOB following coughing episodes - he otherwise denied chest pain, ABD pain or leg pain. Per Nursing staff, patient's O2Sats were appropriate overnight, and patient did not have any acute hypoxic episodes that required intervention. - Objective Vital Signs & Weight: Vital Signs (12 hours) Temp Pulse Resp BP BP Pulse Ox 07/01/20 04:00 97.7 F 81 20 137/73 95 06/30/20 20:00 97.6 F 84 20 146/90 H 94 L 06/30/20 19:12 97.7 F 94 22 H 143/93 H 94 L Weight Weight 81.6 kg I&O: 06/29/20 06/30/20 07/01/20 06:59 06:59 06:59 Intake Total 800 1800 1000 Output Total 375 1025 1200 Balance 425 775 -200 Result Diagrams: 07/01/20 05:17 07/01/20 05:17 Phys Exam - Physical Examination Constitutional: NAD HEENT: sclera anicteric, oral pharynx no lesions Neck: supple, full ROM Respiratory: no wheezing, no rales, no rhonchi, clear to auscultation bilateral Mild tachypnea with dimished air movement Cardiovascular: RRR, no significant murmur, no rub Gastrointestinal: soft, non-tender, no distention, positive bowel sounds Musculoskeletal: no edema, pulses present Neurological: non-focal, moves all 4 limbs Psychiatric: normal affect Skin: no rash Dx/Plan (1) DM2 (diabetes mellitus, type 2) Status: Acute (2) COVID-19 Code(s): U07.1 - COVID-19 Status: Acute (3) Transaminitis Code(s): R74.0 - NONSPEC ELEV OF LEVELS OF TRANSAMNS & LACTIC ACID DEHYDRGNSE Status: Acute (4) Sepsis Code(s): A41.9 - SEPSIS, UNSPECIFIED ORGANISM Status: Acute (5) Thrombocytopenia Code(s): D69.6 - THROMBOCYTOPENIA, UNSPECIFIED Status: Acute - Plan Plan: Patient is a 54 y/o male who recently immigrated from [place] for medical treatment who presents with signs and symptoms suspicious for COVID-19 Pneumonia. #Acute Hypoxic Resp Failure and Sepsis 2/2 COVID PNA -2W worsening fevers, cough, sore throat, SOB that did not respond to unknown ABx regimen in [place] -Leukocytosis, tachycardia and new O2 requirement - currently on High Flow NC at 45L w/ FiO2 of 53% -CXR: Chronic parenchymal changes -CTA: Bibasilar ground glass opacities, hepatic steatosis, no PE -s/p Azithromycin, Ceftriaxone, Dexamethasone and therapeutic Lovenox in the ED - will continue -COVID-19 Swab: Positive -RVP: Negative -Ferritin: 2476 -LDH: 582 -Procal: 0.37 -Urine Legionella/Strep: Negative -After discussing this case with ID, patient does not meet criteria for Remdesivir or Convalescent Plasma due to prolonged nature of current infection - will continue with ABx, steroids and supplemental O2 as per above -Per chart review, patient was hospitalized in 2016 with CAP, culture negative - all additional testing performed at that time appears to be negative #Thrombocytopenia -Plt Count: 120 -Peripheral Smear: Pending #Transaminitis -AST: 55 / ALT: 62 - will continue to trend -CTA: Bibasilar ground glass opacities, hepatic steatosis, no PE -Hepatitis Panel: No evidence for acute/chronic HepA, HepB or HepC infection -Suspect EtOH involvement - patient endorses drinking "a few beers every day", but denies outright EtOH Abuse #Travel to [place] -Quant Gold: Pending #DM2 -Patient endorses a strong FHx of DM2 -HgA1c: 6.5 -Will initiate Metformin 500 mg PO daily -Mild SSI -Hypoglycemia Protocol -Will require close follow-up as an outpatient for adequate management of new diagnosis PCP: CC Code: Full Diet: Carbohydrate Conscious Activity: Ad milady VTE PPx: Therapeutic Lovenox GI PPx: None Dispo: Patient is currently stable and admitted to the Medical Floor for ongoing evaluation of Acute Hypoxic Respiratory Failure and Sepsis 2/2 COVID-19 Pneumonia. Will continue ABx, steroids, supplemental O2 and await additional lab results as per above. Will monitor O2Sats closely and escalate supplemental O2 as needed - ABG planned for this AM. Expected LOS >48H. Addendum - Attending - Attending Attestation Date/Time: 07/01/20 1104 I personally evaluated the patient and discussed the management with Dr. Tolentino. I agree with the History, Examination, Assessment and Plan documented above with any addition or exceptions noted below. Continue HFNC and steroids for COVID 19 hypoxic respiratory failure. ABG shows some worsening of hypoxemia. He may be eventually headed for intubation if current course continues.
[2020-07-01] MEDS ORDERED: guaiFENesin 100 MG/5 ML UDCUP PO PRN (07:25)
[2020-07-01] MEDS: Dexamethasone 4 mg/ml Vial SLOW IVP SCH ×2 (08:17→20:51)
[2020-07-01] MEDS: Enoxaparin Sodium 40 MG/0.4 ML SYRINGE SC SCH (08:17)
[2020-07-01 09:06] LABS: Actual Bicarbonate (HCO3a) 18.4 mEq/L (22-28); Base Excess (BEa) -3.1 mEq/L (-2.0 to +3.0); Calcium, Ionized (arterial) 1.13 mmol/L (1.12-1.30); Carboxyhemoglobin (COHb) 0.3 gm% (0.0-3.0); Potassium - ABG Lab 4.14 mmol/L (3.70-5.30); pH, Arterial 7.47 (7.35-7.45)
[2020-07-01 09:10] LABS: CO2 Tension 25.6 mmHg (35.0-45.0)
[2020-07-01 09:11] LABS: O2 Tension (PaO2), arterial 44.8 mmHg (80.0-100.0); Puncture Site RRA
[2020-07-01] MEDS: Lactated Ringer's 1,000 ML IV SCH ×2 (09:37→16:44)
[2020-07-01] MEDS: Benzonatate 100 MG CAP PO PRN ×2 (16:44→20:51)
[2020-07-01] MEDS: Diabetic Tussin 200 MG/10 ML UDCUP PO PRN (17:54)
[2020-07-02] MEDS: Diabetic Tussin 200 MG/10 ML UDCUP PO PRN ×6 (00:18→22:12)
[2020-07-02] MEDS: cefTRIAXone\\ROCEPHIN 2 GM in Sodium Chloride 0.9% 100 ML IVPB SCH (00:18)
[2020-07-02] MEDS: Lactated Ringer's 1,000 ML IV SCH ×4 (02:45→20:29)
[2020-07-02] MEDS: Azithromycin 250 MG TAB PO SCH (05:49)
[2020-07-02 08:00] LABS: #Lymphocytes 1.3 thou/uL (1.20-3.40); #Monocytes 0.4 thou/uL (0.11-0.59); #Neutrophils 11.2 thou/uL (1.40-6.50); %Basophils 0.1 % (0.0-1.0); %Eosinophils 0.3 % (0.0-10.0); %Lymphocytes 9.8 % (21.0-51.0); %Monocytes 3.1 % (0.0-10.0); %Neutrophils 86.8 % (42.0-75.0); Hemoglobin 17.1 g/dL (14.0-18.0); Mean Corpuscular HGB CONC 32.9 g/dL (32.0-36.0); Mean Corpuscular Hemoglobin 31.4 pg (27.0-31.0); Mean Corpuscular Volume 95.4 fL (78.0-98.0); Mean Platelet Volume 10.9 fL (7.4-10.4); Platelet Count 206 thou/uL (130-400); RBC Distribution Width 12.2 % (11.5-14.5); Red Blood Cell (RBC) Count 5.43 mill/uL (4.70-6.10); White Blood Cell (WBC) Count 12.9 thou/uL (4.8-10.8)
[2020-07-02] MEDS: Dexamethasone 4 mg/ml Vial SLOW IVP SCH ×2 (08:05→20:28)
[2020-07-02] MEDS: Enoxaparin Sodium 40 MG/0.4 ML SYRINGE SC SCH (08:05)
[2020-07-02 08:18] LABS: ALT (SGPT) 95 U/L (8-55); AST (SGOT) 40 U/L (5-34); Albumin 3.2 g/dL (3.5-5.0); Alkaline Phosphatase 67 U/L (40-110); Anion Gap 13 mmol/L (10-20); BUN (Urea Nitrogen) 19 mg/dL (8.4-25.7); Bilirubin, Total 0.6 mg/dL (0.2-1.2); Calc. Creatinine Clearance 135 mL/min (70-130); Calcium 8.2 mg/dL (7.8-10.44); Carbon Dioxide 19 mmol/L (22-29); Chloride 105 mmol/L (98-107); Estimated GFR-MDRD Greater than 90; Globulin 3.4 g/dL (2.4-3.5); Glucose 124 mg/dL (70-105); Potassium 4.2 mmol/L (3.5-5.1); Protein, Total 6.6 g/dL (6.0-8.3); Sodium 133 mmol/L (136-145)
[2020-07-02] MEDS: Benzonatate 100 MG CAP PO PRN ×3 (08:29→20:33)
--- NOTE | 2020-07-02 09:24 | PDOC.FM ---
- Subjective Subjective: Patient doing well, no acute events overnight. Tolerating HFNC. Denies SOB, CP, n/v. Tolerating PO. Still with cough that is improved with cough syrup. No concerns for this morning. - Objective MAR Reviewed: Yes Vital Signs & Weight: Vital Signs (12 hours) Temp Pulse Resp BP Pulse Ox 07/02/20 08:00 98.3 F 72 18 149/94 H 94 L 07/02/20 04:00 98.1 F 68 20 154/89 H 94 L 07/02/20 00:00 98.1 F 71 20 147/94 H 94 L Weight Weight 81.6 kg I&O: 07/01/20 07/02/20 07/03/20 06:59 06:59 06:59 Intake Total 1000 1920 Output Total 1200 675 Balance -200 1245 Result Diagrams: 07/02/20 07:44 07/02/20 07:44 Phys Exam - Physical Examination Constitutional: NAD (resting comfortably. good spirits) HEENT: moist MMs HFNC in place Neck: supple Respiratory: no wheezing, no rales, no rhonchi, clear to auscultation bilateral Cardiovascular: RRR, no significant murmur, no rub Gastrointestinal: soft, non-tender, no distention, positive bowel sounds Musculoskeletal: no edema Psychiatric: normal affect, A&O x 3 Dx/Plan (1) COVID-19 Code(s): U07.1 - COVID-19 Status: Acute - Plan Plan: 54 y/o male who recently immigrated from [place] for medical treatment who presented with COVID-19 Pneumonia. #Acute Hypoxic Resp Failure and Sepsis 2/2 COVID PNA -Initially with PNA in [place] 2 weeks ago, improved and then worsened approx 4 days prior to admission on 06/24 with worsening fevers, cough, sore throat, SOB -Leukocytosis, tachycardia and new O2 requirement - currently on High Flow NC at 50L w/ FiO2 of 50% -CXR: Chronic parenchymal changes -CTA: Bibasilar ground glass opacities, hepatic steatosis, no PE -s/p Azithromycin, Ceftriaxone -Dexamethasone and therapeutic Lovenox in the ED - will continue -COVID-19 Swab: Positive -RVP: Negative -Ferritin: 2476, LDH: 582 -Procal: 0.37, Urine Legionella/Strep: Negative -After discussing this case with ID, patient does not meet criteria for Remdesivir or Convalescent Plasma due to prolonged nature of current infection - will continue with ABx, steroids and supplemental O2 as per above, will discuss again with ID due to elevated D-dimer and continued O2 requirement and history of PNA in [place], improvement, and now worsening with current hospitalization -Per chart review, patient was hospitalized in 2016 with CAP, culture negative - all additional testing performed at that time appears to be negative #Thrombocytopenia, resolved -Plt Count: 120 -> 206 #Transaminitis, stable -AST: 55 / ALT: 62 - will continue to trend -CTA: Bibasilar ground glass opacities, hepatic steatosis, no PE -Hepatitis Panel: No evidence for acute/chronic HepA, HepB or HepC infection -Suspect EtOH involvement - patient endorses drinking "a few beers every day", but denies outright EtOH Abuse #Travel to [place] -Quant Gold: Pending #DM2 -Patient endorses a strong FHx of DM2 -HgA1c: 6.5 -Metformin 500 mg PO daily -Mild SSI -Hypoglycemia Protocol -Will require close follow-up as an outpatient for adequate management of new diagnosis PCP: CC - None Code: Full Diet: CC Activity: Ad milady VTE PPx: Lovenox GI PPx: None IVF: LR @ 120cc/hr Dispo: Patient is currently stable and admitted to the Medical Floor for ongoing evaluation of Acute Hypoxic Respiratory Failure and Sepsis 2/2 COVID-19 Pneumonia. Will continue steroids, supplemental O2 and await additional lab results as per above. Will monitor O2Sats closely and escalate supplemental O2 as needed - Expected LOS >48H. Addendum - Attending - Attending Attestation Date/Time: 07/02/20 1100 I personally evaluated the patient and discussed the management with Dr. Vasquez. I agree with the History, Examination, Assessment and Plan documented above with any addition or exceptions noted below. Patient stable. Continue HFNC as needed per RT. Will re-discuss his case with ID today. Continue steroids and await improvement of lung function from his COVID-19 respiratory failure.
[2020-07-02] MEDS: HumaLOG 300 UNITS/3 ML VIAL SC PRN ×2 (10:59→16:06)
[2020-07-03] MEDS: hydrOXYzine 25 MG TAB PO PRN ×3 (02:29→20:11)
[2020-07-03] MEDS: Benzonatate 100 MG CAP PO PRN ×2 (02:30→08:11)
[2020-07-03 06:01] LABS: #Monocytes 0.3 thou/uL (0.11-0.59); #Neutrophils 13.2 thou/uL (1.40-6.50); %Basophils 0.2 % (0.0-1.0); %Eosinophils 0.2 % (0.0-10.0); %Lymphocytes 7.1 % (21.0-51.0); %Neutrophils 90.5 % (42.0-75.0); Hemoglobin 17.1 g/dL (14.0-18.0); Mean Corpuscular Hemoglobin 31.6 pg (27.0-31.0); Mean Corpuscular Volume 95.6 fL (78.0-98.0); Mean Platelet Volume 10.7 fL (7.4-10.4); Platelet Count 203 thou/uL (130-400); RBC Distribution Width 12.3 % (11.5-14.5); White Blood Cell (WBC) Count 14.6 thou/uL (4.8-10.8)
[2020-07-03 06:29] LABS: ALT (SGPT) 95 U/L (8-55); AST (SGOT) 39 U/L (5-34); Alkaline Phosphatase 66 U/L (40-110); Anion Gap 15 mmol/L (10-20); BUN (Urea Nitrogen) 18 mg/dL (8.4-25.7); Bilirubin, Total 0.5 mg/dL (0.2-1.2); Calc. Creatinine Clearance 131 mL/min (70-130); Calcium 8.2 mg/dL (7.8-10.44); Carbon Dioxide 21 mmol/L (22-29); Chloride 103 mmol/L (98-107); Estimated GFR-MDRD Greater than 90; Globulin 3.4 g/dL (2.4-3.5); Glucose 168 mg/dL (70-105); Potassium 4.5 mmol/L (3.5-5.1); Protein, Total 6.4 g/dL (6.0-8.3); Sodium 134 mmol/L (136-145)
[2020-07-03] MEDS: Calcium Carbonate 500 MG ChewTAB PO PRN ×2 (08:10→23:40)
[2020-07-03] MEDS: Enoxaparin Sodium 40 MG/0.4 ML SYRINGE SC SCH ×2 (08:11→20:10)
[2020-07-03] MEDS: Dexamethasone 4 mg/ml Vial SLOW IVP SCH ×2 (08:11→20:10)
[2020-07-03] MEDS: Lactated Ringer's 1,000 ML IV SCH (08:20)
--- NOTE | 2020-07-03 08:34 | PDOC.FM ---
- Subjective Subjective: Doing well. Overnight had increased anxiety, relieved with atarax. Also has experience hiccups over past 24+ hours, very bothersome. Respiratory galvez, patient states he is feeling well, cough improved, no SOB. No fever/chills, CP, n/v. Does endorse mild heartburn. - Objective MAR Reviewed: Yes Vital Signs & Weight: Vital Signs (12 hours) Temp Pulse Resp BP Pulse Ox 07/03/20 07:54 98.5 F 97 36 H 157/90 H 94 L 07/03/20 07:13 92 L 07/03/20 03:12 98.2 F 100 20 148/88 H 95 07/03/20 01:45 20 92 L 07/02/20 23:59 98.2 F 84 18 156/100 H 92 L 07/02/20 22:00 20 94 L 07/02/20 21:30 20 93 L Weight Weight 81.6 kg I&O: 07/02/20 07/03/20 07/04/20 06:59 06:59 06:59 Intake Total 1920 3570 Output Total 675 2075 600 Balance 1245 1495 -600 Result Diagrams: 07/03/20 05:39 07/03/20 05:39 Phys Exam - Physical Examination Constitutional: NAD (sitting upright in bed, good spirits) HEENT: moist MMs hiccups frequently Neck: supple Respiratory: no wheezing, no rales, no rhonchi, clear to auscultation bilateral Cardiovascular: RRR, no significant murmur, no rub Gastrointestinal: soft, non-tender, no distention, positive bowel sounds Musculoskeletal: no edema Neurological: moves all 4 limbs Psychiatric: normal affect, A&O x 3 Dx/Plan (1) COVID-19 Code(s): U07.1 - COVID-19 Status: Acute - Plan Plan: 54 y/o male who recently immigrated from [place] for medical treatment who presented with COVID-19 Pneumonia. #Acute Hypoxic Resp Failure and Sepsis 2/2 COVID PNA -Initially with PNA in [place] 2 weeks ago, improved and then worsened approx 4 days prior to admission on 06/24 with worsening fevers, cough, sore throat, SOB -Leukocytosis, tachycardia and new O2 requirement - currently on High Flow NC at 50L w/ FiO2 of 55% -CXR: Chronic parenchymal changes -CTA: Bibasilar ground glass opacities, hepatic steatosis, no PE -s/p Azithromycin, Ceftriaxone -Continue dexamethasome - Was previously on Th lovenox but transition to ppx lovenox due to down trended D-dimer -COVID-19 Swab: Positive -RVP: Negative -Ferritin: 2476, LDH: 582 -Procal: 0.37, Urine Legionella/Strep: Negative -After discussing this case with ID, patient does not meet criteria for Remdesivir or Convalescent Plasma due to prolonged nature of current infection - will continue with ABx, steroids and supplemental O2 as per above -Per chart review, patient was hospitalized in 2016 with CAP, culture negative - all additional testing performed at that time appears to be negative #Thrombocytopenia, resolved -Plt Count: 120 -> 206 #Transaminitis, stable -AST: 55 / ALT: 62 - will continue to trend -CTA: Bibasilar ground glass opacities, hepatic steatosis, no PE -Hepatitis Panel: No evidence for acute/chronic HepA, HepB or HepC infection -Suspect EtOH involvement - patient endorses drinking "a few beers every day", but denies outright EtOH Abuse #Travel to [place] -Quant Gold: Pending #Hiccups - associated with GERD - PPI + Tums - If not resolved, consider baclofen, gabapentin, or reglan #DM2 -Patient endorses a strong FHx of DM2 -HgA1c: 6.5 -Metformin 500 mg PO daily -Mild SSI -Hypoglycemia Protocol -Will require close follow-up as an outpatient for adequate management of new diagnosis PCP: CC - None Code: Full Diet: CC Activity: Ad milady - encourage ambulation VTE PPx: Lovenox GI PPx: None IVF: LR @ 120cc/hr Dispo: Patient is currently stable and admitted to the Medical Floor for ongoing evaluation of Acute Hypoxic Respiratory Failure and Sepsis 2/2 COVID-19 Pneumonia. Will continue steroids, supplemental O2 and await additional lab results as per above. Will monitor O2Sats closely and escalate supplemental O2 as needed - Expected LOS >48H. Addendum - Attending - Attending Attestation Date/Time: 07/03/20 4895 I personally evaluated the patient and discussed the management with Dr. Vasquez. I agree with the History, Examination, Assessment and Plan documented above with any addition or exceptions noted below. Patient overall stable. Continue HFNC and wean as tolerated. Will add meds for his occasional anxiety related to dyspnea. He is having significant hiccups, will try to get those under control. Continue current mgmt.
[2020-07-03] MEDS ORDERED: chlorproMAZINE HCl 25 MG TAB PO SCH (09:15)
[2020-07-03] MEDS: HumaLOG 300 UNITS/3 ML VIAL SC PRN ×2 (12:05→17:14)
[2020-07-03] MEDS: Diabetic Tussin 200 MG/10 ML UDCUP PO PRN (20:10)
[2020-07-03 21:03] LABS: SARS-CoV-2 IgG Ab Reactive (NonReactive); SARS-CoV-2 IgG Index 3.87 S/CO (< 1.40)
[2020-07-03 21:13] LABS: QuantiFERON-TB Gold Plus Indeterminate (Negative)
[2020-07-04] MEDS: Benzonatate 100 MG CAP PO PRN (03:09)
[2020-07-04] MEDS: hydrOXYzine 25 MG TAB PO PRN ×3 (03:09→17:20)
[2020-07-04 05:53] LABS: #Lymphocytes 0.9 thou/uL (1.20-3.40); #Monocytes 0.2 thou/uL (0.11-0.59); #Neutrophils 14.8 thou/uL (1.40-6.50); %Basophils 0.2 % (0.0-1.0); %Eosinophils 0.2 % (0.0-10.0); %Lymphocytes 5.6 % (21.0-51.0); %Monocytes 1.4 % (0.0-10.0); %Neutrophils 92.7 % (42.0-75.0); Hemoglobin 16.2 g/dL (14.0-18.0); Mean Corpuscular HGB CONC 32.1 g/dL (32.0-36.0); Mean Corpuscular Hemoglobin 30.8 pg (27.0-31.0); Mean Platelet Volume 11.3 fL (7.4-10.4); Platelet Count 209 thou/uL (130-400); RBC Distribution Width 12.6 % (11.5-14.5); Red Blood Cell (RBC) Count 5.27 mill/uL (4.70-6.10); White Blood Cell (WBC) Count 15.9 thou/uL (4.8-10.8)
[2020-07-04 06:16] LABS: ALT (SGPT) 75 U/L (8-55); AST (SGOT) 28 U/L (5-34); Albumin 2.9 g/dL (3.5-5.0); Alkaline Phosphatase 58 U/L (40-110); Anion Gap 12 mmol/L (10-20); BUN (Urea Nitrogen) 19 mg/dL (8.4-25.7); Bilirubin, Total 0.7 mg/dL (0.2-1.2); Calc. Creatinine Clearance 131 mL/min (70-130); Calcium 8.3 mg/dL (7.8-10.44); Carbon Dioxide 20 mmol/L (22-29); Chloride 103 mmol/L (98-107); Estimated GFR-MDRD Greater than 90; Globulin 3.4 g/dL (2.4-3.5); Glucose 166 mg/dL (70-105); Potassium 4.7 mmol/L (3.5-5.1); Protein, Total 6.3 g/dL (6.0-8.3); Sodium 130 mmol/L (136-145)
--- NOTE | 2020-07-04 08:42 | PDOC.FM ---
- Subjective Subjective: Doing well. Overnight had mild increase shortness of breath overnight. Hiccups improved with thorazine, only mild now. Tolerating PO. Cough improved. No n/v, diarrhea/constipation. - Objective MAR Reviewed: Yes Vital Signs & Weight: Vital Signs (12 hours) Temp Pulse Resp BP Pulse Ox 07/04/20 04:00 97.9 F 84 20 113/81 95 07/04/20 00:00 98.5 F 90 20 145/88 H 94 L 07/03/20 21:00 84 22 H 92 L Weight Weight 81.6 kg I&O: 07/03/20 07/04/20 07/05/20 06:59 06:59 06:59 Intake Total 3570 2340 Output Total 2075 1900 Balance 1495 440 Result Diagrams: 07/04/20 05:24 07/04/20 05:24 Phys Exam - Physical Examination Constitutional: NAD (resting comfortably) HEENT: moist MMs occasional hiccups Neck: supple Respiratory: no wheezing, no rales, no rhonchi, clear to auscultation bilateral Cardiovascular: RRR, no significant murmur, no rub Gastrointestinal: soft, non-tender, no distention, positive bowel sounds Neurological: moves all 4 limbs Psychiatric: normal affect, A&O x 3 Dx/Plan (1) COVID-19 Code(s): U07.1 - COVID-19 Status: Acute - Plan Plan: 54 y/o male who recently immigrated from [place] for medical treatment who presented with COVID-19 Pneumonia. #Acute Hypoxic Resp Failure and Sepsis 2/2 COVID PNA -Initially with PNA in [place] 2 weeks ago, improved and then worsened approx 4 days prior to admission on 06/24 with worsening fevers, cough, sore throat, SOB -Leukocytosis, tachycardia and new O2 requirement - currently on High Flow NC at 50L w/ FiO2 of 55% -CXR: Chronic parenchymal changes -CTA: Bibasilar ground glass opacities, hepatic steatosis, no PE -s/p Azithromycin, Ceftriaxone -Continue dexamethasome -Lovenox BID -COVID-19 Swab: Positive -RVP: Negative -Ferritin: 2476, LDH: 582, D-dimer 0.67 -Procal: 0.37, Urine Legionella/Strep: Negative -After discussing this case with ID, patient does not meet criteria for Remdesivir or Convalescent Plasma due to prolonged nature of current infection - will continue with ABx, steroids and supplemental O2 as per above -IgG Covid 3.87, indicative of prolonged infection -Per chart review, patient was hospitalized in 2016 with CAP, culture negative - all additional testing performed at that time appears to be negative #Thrombocytopenia, resolved -Plt Count: 120 -> 206 #Transaminitis, stable -AST: 55 / ALT: 62 - will continue to trend -CTA: Bibasilar ground glass opacities, hepatic steatosis, no PE -Hepatitis Panel: No evidence for acute/chronic HepA, HepB or HepC infection -Suspect EtOH involvement - patient endorses drinking "a few beers every day", but denies outright EtOH Abuse #Travel to [place] -Quant Gold: Indeterminate, low suspicion for TB -Consider PPD as outpatient #Hiccups - associated with GERD - PPI + Tums + Thorazine prn - If not resolved, consider baclofen, gabapentin, or reglan #DM2 -Patient endorses a strong FHx of DM2 -HgA1c: 6.5 -Metformin 500 mg PO daily -Mild SSI -Hypoglycemia Protocol -Will require close follow-up as an outpatient for adequate management of new diagnosis PCP: CC - None Code: Full Diet: CC Activity: Ad milady - encourage ambulation VTE PPx: Lovenox BID GI PPx: None IVF: SL Dispo: Patient is currently stable and admitted to the Medical Floor for ongoing evaluation of Acute Hypoxic Respiratory Failure and Sepsis 2/2 COVID-19 Pneumonia. Will continue steroids, supplemental O2 and pulm rehab. Will monitor O2Sats closely and escalate supplemental O2 as needed - Expected LOS >48H. Addendum - Attending - Attending Attestation Date/Time: 07/04/20 2870 I personally evaluated the patient and discussed the management with Dr. Vasquez. I agree with the History, Examination, Assessment and Plan documented above with any addition or exceptions noted below. Patient stable. Continue current treatment and wean HFNC as tolerated. Hiccups improved with thorazine.
[2020-07-04] MEDS ORDERED: chlorproMAZINE HCl 25 MG TAB PO SCH ×2 (08:45→23:30)
[2020-07-04] MEDS: Enoxaparin Sodium 40 MG/0.4 ML SYRINGE SC SCH ×2 (09:38→21:01)
[2020-07-04] MEDS: Dexamethasone 4 mg/ml Vial SLOW IVP SCH ×2 (09:38→21:01)
[2020-07-04] MEDS ORDERED: Lorazepam 2 MG/ML VIAL SLOW IVP SCH (13:15)
[2020-07-04] MEDS: Diabetic Tussin 200 MG/10 ML UDCUP PO PRN ×2 (14:25→21:00)
[2020-07-04] MEDS: HumaLOG 300 UNITS/3 ML VIAL SC PRN (17:25)
[2020-07-04] MEDS: Albuterol 200 PUFF (6.7GM INHALER) INH PRN (21:35)
[2020-07-04] MEDS: Calcium Carbonate 500 MG ChewTAB PO PRN (21:35)
[2020-07-04] MEDS ORDERED: Lorazepam 0.5 MG TAB PO SCH ×2 (22:00→22:15)
[2020-07-04 22:35] LABS: Actual Bicarbonate (HCO3a) 16.9 mEq/L (22-28); Base Excess (BEa) -4.2 mEq/L (-2.0 to +3.0); Calcium, Ionized (arterial) 1.15 mmol/L (1.12-1.30); Carboxyhemoglobin (COHb) 0.7 gm% (0.0-3.0); Hemoglobin (Hb) 17.1 g/dL (14.0-18.0); Potassium - ABG Lab 4.19 mmol/L (3.70-5.30); pH, Arterial 7.47 (7.35-7.45)
[2020-07-04 22:37] LABS: CO2 Tension 23.6 mmHg (35.0-45.0); O2 Tension (PaO2), arterial 37.6 mmHg (80.0-100.0)
[2020-07-04 22:38] LABS: Puncture Site LRA
--- NOTE | 2020-07-04 23:20 | PDOC.BPN ---
<Neda Villavicencio - Last Filed: 07/04/20 23:20> - Brief Progress Note Encounter Date: 07/04/20 Encounter Time: 22:15 Called by nursing that patient had increased work of breathing, accessory muscle use, and increased anxiety. They reported his RR of 40, satting 85% on his current HFNC. They were concerned and asked us to come evaluate the patient. In the room, the patient was belly breathing and appeared anxious. When he was able to slow his breathing down his sats did come up to 92%. RT was called to the room and adjust his settings to FiO2 of 94% and flow of 60L. He was satting 90%. He was given 1mg of ativan PO. Lungs were clear. Patient with coughing fits and hiccups. ABG obtained and showed pH 7.47, O2 37, Co2 23.6, HCo3 16.9. We will move him to the IMCU for closer monitoring. Will give trial of Bipap. Low threshold to move to intubation if patient's condition not improved on Bipap. Called Dr. Robbins (pul) to inform of patient moving to IMCU. Called Dr. Goff as well to update on patient's status. <Hung Goff - Last Filed: 07/05/20 07:41> Addendum - Attending - Attending Attestation Date/Time: 07/05/20 0740 I personally evaluated the patient and discussed the management with Dr. Villavicencio. I agree with the History, Examination, Assessment and Plan documented above with any addition or exceptions noted below. Agree with above. Seen and examined patient after being discussed via telephone with Dr. Villavicencio.
[2020-07-04] MEDS ORDERED: Morphine 4 MG/ML VIAL ONE (23:43)
[2020-07-04] MEDS ORDERED: Morphine 2 MG/ML VIAL SLOW IVP SCH (23:45)
[2020-07-05] MEDS ORDERED: ALPRAZolam 0.25 MG TAB PO SCH (00:45)
[2020-07-05 02:56] LABS: #Lymphocytes 0.6 thou/uL (1.20-3.40); #Monocytes 0.3 thou/uL (0.11-0.59); #Neutrophils 14.6 thou/uL (1.40-6.50); %Basophils 0.3 % (0.0-1.0); %Eosinophils 0.2 % (0.0-10.0); %Lymphocytes 3.5 % (21.0-51.0); %Monocytes 1.8 % (0.0-10.0); %Neutrophils 94.1 % (42.0-75.0); Hemoglobin 15.9 g/dL (14.0-18.0); Mean Corpuscular HGB CONC 32.8 g/dL (32.0-36.0); Mean Corpuscular Hemoglobin 31.8 pg (27.0-31.0); Mean Corpuscular Volume 97.1 fL (78.0-98.0); Platelet Count 180 thou/uL (130-400); RBC Distribution Width 12.7 % (11.5-14.5); White Blood Cell (WBC) Count 15.5 thou/uL (4.8-10.8)
[2020-07-05 03:25] LABS: ALT (SGPT) 54 U/L (8-55); AST (SGOT) 21 U/L (5-34); Albumin 2.8 g/dL (3.5-5.0); Alkaline Phosphatase 63 U/L (40-110); Anion Gap 13 mmol/L (10-20); BUN (Urea Nitrogen) 23 mg/dL (8.4-25.7); Bilirubin, Total 0.5 mg/dL (0.2-1.2); Calc. Creatinine Clearance 111 mL/min (70-130); Calcium 7.6 mg/dL (7.8-10.44); Carbon Dioxide 19 mmol/L (22-29); Chloride 105 mmol/L (98-107); Estimated GFR-MDRD 89; Globulin 3.2 g/dL (2.4-3.5); Glucose 329 mg/dL (70-105); Potassium 5.1 mmol/L (3.5-5.1); Sodium 132 mmol/L (136-145)
[2020-07-05 04:24] LABS: Actual Bicarbonate (HCO3a) 19.1 mEq/L (22-28); Base Excess (BEa) -4.9 mEq/L (-2.0 to +3.0); CO2 Tension 32.8 mmHg (35.0-45.0); Calcium, Ionized (arterial) 1.19 mmol/L (1.12-1.30); Carboxyhemoglobin (COHb) 0.4 gm% (0.0-3.0); O2 Tension (PaO2), arterial 99.7 mmHg (80.0-100.0); Potassium - ABG Lab 4.72 mmol/L (3.70-5.30); pH, Arterial 7.38 (7.35-7.45)
[2020-07-05 04:28] LABS: Puncture Site LRA
--- NOTE | 2020-07-05 05:10 | PDOC.FM ---
- Subjective Subjective: Overnight, patient with increased work of breathing, higher oxygen requirements , and severe anxiety. After evaluation and ABG, patient transferred to [facility] for BIPAP. Since that time, he seems to be more comfortable. He is resting comfortably on BIPAP, asking for breakfast, less anxious. Denies chest pain, SOB, hiccups. - Objective MAR Reviewed: Yes Vital Signs & Weight: Vital Signs (12 hours) Temp Pulse Resp BP Pulse Ox 07/05/20 04:00 97.6 F 100 07/05/20 01:58 74 32 H 100 07/05/20 00:45 93 36 H 100 07/05/20 00:00 98 38 H 100 07/04/20 23:50 98 07/04/20 23:35 110 H 51 H 100 07/04/20 22:00 95 44 H 90 L 07/04/20 21:15 46 H 93 L 07/04/20 21:00 93 L 07/04/20 20:00 98.0 F 103 H 40 H 116/78 95 Weight Weight 81.4 kg Most Recent Monitor Data Heart Rate from ECG 69 NIBP 124/84 NIBP BP-Mean 97 Respiration from ECG 30 SpO2 100 I&O: 07/03/20 07/04/20 07/05/20 06:59 06:59 06:59 Intake Total 3570 2340 Output Total 2075 1900 200 Balance 1495 440 -200 Result Diagrams: 07/05/20 02:39 07/05/20 02:39 Phys Exam - Physical Examination Tachypnic in 30's, NAD, breathing comfortably on BIPAP HEENT: moist MMs fine crackles, no wheezing Cardiovascular: RRR, no significant murmur Gastrointestinal: soft, non-tender, no distention Musculoskeletal: no edema Neurological: moves all 4 limbs Psychiatric: A&O x 3 Skin: cap refill <2 seconds Dx/Plan (1) COVID-19 Code(s): U07.1 - COVID-19 Status: Acute (2) DM2 (diabetes mellitus, type 2) Status: Acute (3) Transaminitis Code(s): R74.0 - NONSPEC ELEV OF LEVELS OF TRANSAMNS & LACTIC ACID DEHYDRGNSE Status: Acute - Plan Plan: 54 y/o male who recently immigrated from [place] for medical treatment who presented with COVID-19 Pneumonia. Acute Hypoxic Resp Failure and Sepsis 2/2 COVID PNA Pt presented with 2wk hx of reported PNA, however worsened acutely before admission, IgG Covid points to prolonged infection although course timing is abnormal for COVID -Previously on HFNC, now on BIPAP, patient is full code and there is a low threshold for intubation, however seems to be doing well on BIPAP currently -ID consulted and pt did not meet criteria for Remdesivir or Convalescent Plasma -s/p course of Abx (Rocephin and Azithromycin), currently on Dexamethasone and prn Albuterol -D-dimer continues to worsen, 0.6, 0.9 today, on Lovenox BID, consider increasing to therapeutic dosing, check anti 10a level -procal 0.37 initially, repeat today to r/o secondary bacterial infection however less likely Transaminitis, stable -continued improvement -Hepatitis Panel wnl -suspect EtOH per hx Travel to [place] -Quant Gold: Indeterminate, low suspicion for TB -Consider PPD as outpatient Hiccups -thorazine scheduled, if refractory, trial of gabapentin DM2 -elevated in 300's this AM, Mild SSI on board, continue monitoring for need in increased insulin -HgA1c: 6.5 -Metformin 500 mg PO daily PCP: CC - None Code: Full Diet: CC Activity: Ad milady - encourage ambulation VTE PPx: Lovenox BID GI PPx: None IVF: SL Dispo: Patient is currently stable and admitted to the IMCU for ongoing evaluation of Acute Hypoxic Respiratory Failure and Sepsis 2/2 COVID-19 Pneumonia. Discharge pending improved respiratory status, currently expected LOS >48h. Addendum - Attending - Attending Attestation Date/Time: 07/05/20 1150 I personally evaluated the patient and discussed the management with Dr. José. I agree with the History, Examination, Assessment and Plan documented above with any addition or exceptions noted below. Patient with decompensation overnight, had increased anxiety as well as hypoxemia. Fortunately, we were able to avoid intubation in this patient. He has now stabilized in the CCU and has normal O2 sats on Bipap. Pulm has been consulted. Repeat ABG. He has previously not been deemed a candidate for Remdesevir or plasma by ID due to length of illness. Continue steroids, escalate anticoagulation to therapeutic. Manage anxiety and cough/hiccups as needed.
[2020-07-05] MEDS: HumaLOG 300 UNITS/3 ML VIAL SC PRN ×3 (06:11→21:05)
[2020-07-05] MEDS: Dexamethasone 4 mg/ml Vial SLOW IVP SCH ×2 (08:47→20:47)
[2020-07-05] MEDS: Enoxaparin Sodium 40 MG/0.4 ML SYRINGE SC SCH (08:47)
[2020-07-05] MEDS: chlorproMAZINE HCl 25 MG TAB PO SCH ×3 (08:48→20:47)
[2020-07-05] MEDS: Lorazepam 2 MG/ML VIAL SLOW IVP PRN ×2 (13:43→20:46)
[2020-07-05] MEDS: Benzonatate 100 MG CAP PO PRN ×2 (13:43→20:47)
[2020-07-05] MEDS: methylPREDNISolone Sod Succ/PF 125 MG/2 ML VIAL IVP SCH (13:44)
--- NOTE | 2020-07-05 19:17 | CON ---
DATE OF CONSULTATION: 07/05/2020 HISTORY OF PRESENT ILLNESS: Leonel Reynoso is a 54-year-old male, admitted on 06/28 with two weeks prior having a fever. He presented with shortness of breath two weeks after these symptoms, occurred while he was in [place]. A week prior to admission, he was given empiric antibiotics for all these symptoms. Because he got worse, he drove here from [place] and subsequently was hospitalized. He has been afebrile since he was admitted. Yesterday, he required high-flow oxygen, transfer to the critical care unit, and then BiPAP. He is on 90% now. PAST MEDICAL HISTORY: Remarkable for pneumonia in the past. FAMILY HISTORY: Noncontributory. REVIEW OF SYSTEMS: Otherwise noncontributory. PHYSICAL EXAMINATION: VITAL SIGNS: Heart rate 67, respiratory rates in the 30s. He has BiPAP in place. He is on 90% oxygen, oximetry is in the high 90s. HEAD AND NECK: Unremarkable. LUNGS: Remarkable for coarse equal breath sounds. HEART: Regular rhythm. ABDOMEN: Soft. EXTREMITIES: Without asymmetry. LABORATORY DATA: White count 15.5, hemoglobin 15.9, platelets 180,000. Sodium 132, potassium 5.1, chloride 105, bicarb 19, BUN 23, creatinine 0.8. PH 7.38, CO2 of 32, PO2 of 99, on BiPAP. COVID screen was positive when he came in. C-reactive protein when he came in on the was 7, this has not been repeated. There is no D-dimer in the lab work. His electrolytes are unremarkable. His renal function is normal. Albumin is 2.8. There is no urinalysis to see if he has proteinuria. D-dimer is 0.9. Chest radiograph on the , chest CT done on the showed infiltrates consistent with COVID. His x-ray has not been repeated since the . IMPRESSION: COVID pneumonia most likely. I suspect he is in the late phase of the illness. Given his history, it is more likely that he had been infected over a week prior to his admission here, so he is probably over 2 weeks into this. To be safe, he needs to be fully anticoagulated. He needs in my opinion a higher dose of steroids. He needs empiric antimicrobial therapy. He definitely needs a chest radiograph repeated. We will follow with the other physicians caring for him. This is a 70 min visit with greater than 50% of time spent on unit with coordination of care. Job ID: [id number] BRANDON
[2020-07-05] MEDS: Enoxaparin Sodium 60 MG/0.6 ML SYRINGE SC SCH (20:47)
[2020-07-06] MEDS ORDERED: Lorazepam 2 MG/ML VIAL SLOW IVP SCH (00:30)
[2020-07-06] MEDS: methylPREDNISolone Sod Succ/PF 125 MG/2 ML VIAL IVP SCH ×2 (01:25→14:27)
[2020-07-06 03:34] LABS: #Basophils 0.1 thou/uL (0.0-0.2); #Lymphocytes 0.5 thou/uL (1.20-3.40); #Monocytes 0.3 thou/uL (0.11-0.59); #Neutrophils 12.2 thou/uL (1.40-6.50); %Basophils 0.5 % (0.0-1.0); %Neutrophils 93.5 % (42.0-75.0); Hemoglobin 16.2 g/dL (14.0-18.0); Mean Corpuscular HGB CONC 34.5 g/dL (32.0-36.0); Mean Corpuscular Hemoglobin 33.1 pg (27.0-31.0); Mean Corpuscular Volume 96.1 fL (78.0-98.0); Mean Platelet Volume 11.4 fL (7.4-10.4); Platelet Count 184 thou/uL (130-400); RBC Distribution Width 12.4 % (11.5-14.5)
[2020-07-06 03:59] LABS: ALT (SGPT) 50 U/L (8-55); AST (SGOT) 19 U/L (5-34); Albumin 2.9 g/dL (3.5-5.0); Alkaline Phosphatase 61 U/L (40-110); Anion Gap 12 mmol/L (10-20); BUN (Urea Nitrogen) 27 mg/dL (8.4-25.7); Bilirubin, Total 0.5 mg/dL (0.2-1.2); Calc. Creatinine Clearance 123 mL/min (70-130); Calcium 8.1 mg/dL (7.8-10.44); Carbon Dioxide 20 mmol/L (22-29); Chloride 105 mmol/L (98-107); Estimated GFR-MDRD Greater than 90; Globulin 3.2 g/dL (2.4-3.5); Glucose 225 mg/dL (70-105); Potassium 4.9 mmol/L (3.5-5.1); Protein, Total 6.1 g/dL (6.0-8.3); Sodium 132 mmol/L (136-145)
[2020-07-06] MEDS: Diabetic Tussin 200 MG/10 ML UDCUP PO PRN (04:54)
[2020-07-06] MEDS: HumaLOG 300 UNITS/3 ML VIAL SC PRN ×4 (05:12→21:46)
--- NOTE | 2020-07-06 05:14 | PDOC.FM ---
- Subjective Subjective: Pt did well overnight. No events noted by nursing staff. Pt endorses being hungry but after removal of BIPAP trial yesterday, desaturates quickly. Was able to drink some yesterday. He otherwise has no complaints. Denies hiccups, CP, SOB. Reports less anxious however nursing staff reports anxiety still fairly severe and increased respiratory rate every time he becomes anxious. - Objective MAR Reviewed: Yes Vital Signs & Weight: Vital Signs (12 hours) Temp Pulse Resp Pulse Ox 07/06/20 02:00 79 39 H 99 07/06/20 00:00 97.5 F L 99 07/05/20 22:00 77 100 07/05/20 20:00 97.9 F 100 07/05/20 18:53 86 100 Weight Weight 81.4 kg Most Recent Monitor Data Heart Rate from ECG 76 NIBP 114/71 NIBP BP-Mean 85 Respiration from ECG 42 SpO2 99 I&O: 07/04/20 07/05/20 07/06/20 06:59 06:59 06:59 Intake Total 2340 30 1534 Output Total 8410 959 2198 Balance 440 -170 184 Result Diagrams: 07/06/20 03:25 07/06/20 03:25 Phys Exam - Physical Examination increasedwork of breathing, appears anxious Respiratory: no wheezing, no rales fine crackles throughout, increased work of breathing Cardiovascular: RRR, no significant murmur Gastrointestinal: soft, non-tender, no distention, positive bowel sounds Musculoskeletal: no edema Neurological: moves all 4 limbs Psychiatric: A&O x 3 Dx/Plan (1) COVID-19 Code(s): U07.1 - COVID-19 Status: Acute (2) DM2 (diabetes mellitus, type 2) Status: Acute (3) Transaminitis Code(s): R74.0 - NONSPEC ELEV OF LEVELS OF TRANSAMNS & LACTIC ACID DEHYDRGNSE Status: Acute - Plan Plan: 54 y/o male who recently immigrated from [place] for medical treatment who presented with COVID-19 Pneumonia. Acute Hypoxic Resp Failure and Sepsis 2/2 COVID PNA Pt presented with 2wk hx of reported PNA, however worsened acutely before admission, IgG Covid points to prolonged infection although course timing is abnormal for COVID -Previously on HFNC, now doing well on BIPAP, FiO2 remains high though, patient is full code and there is a low threshold for intubation -ID consulted and pt did not meet criteria for Remdesivir or Convalescent Plasma d/t prolonged course -s/p course of Abx (Rocephin and Azithromycin), Pulmonology consulted yesterday and added Doxycycline as well as increased steroids to Solu-Medrol 80IV BID. -D-dimer, CRP, and Ferritin all trending down today -Lovenox BID increased yesterday to therapeutic range -Clear liquid diet d/t BiPAP, will add 1/2 mIVF -awaiting repeat CXR Hiccups -thorazine scheduled, if refractory, trial of gabapentin Anxiety -prn Ativan and Atarax -seems to be worsening respiratory status, will add scheduled Klonopin today DM2 -elevated in 300's this AM, Mild SSI on board, continue monitoring for need in increased insulin -HgA1c: 6.5 -Metformin 500 mg PO daily Travel to [place] -Quant Gold: Indeterminate, low suspicion for TB -Consider PPD as outpatient Transaminitis, resolved -continued improvement -Hepatitis Panel wnl -suspect EtOH per hx PCP: CC - None Code: Full Diet: Clear Liquid VTE PPx: Lovenox BID GI PPx: None IVF: SL Dispo: Patient is currently stable and admitted to the IMCU for ongoing evaluation of Acute Hypoxic Respiratory Failure and Sepsis 2/2 COVID-19 Pneumonia. Discharge pending improved respiratory status, currently expected LOS >48h. Addendum - Attending - Attending Attestation Date/Time: 07/06/20 0703 I personally evaluated the patient and discussed the management with Dr. José. I agree with the History, Examination, Assessment and Plan documented above with any addition or exceptions noted below. Patient overall stable on Bipap at this time. Inflammatory markers downtrending. Back on abx. Pulm on board. Will attempt longer term control of his anxiety that precipitates many of his episodes of hypoxia.
[2020-07-06] MEDS: Lorazepam 2 MG/ML VIAL SLOW IVP PRN ×2 (05:27→11:18)
[2020-07-06] MEDS: Enoxaparin Sodium 60 MG/0.6 ML SYRINGE SC SCH ×2 (08:38→20:51)
[2020-07-06] MEDS ORDERED: clonazePAM 0.5 MG TAB PO SCH (09:00)
[2020-07-06] MEDS ORDERED: PROPOFOL 0 ML ONE (09:15)
[2020-07-06] MEDS ORDERED: Lactated Ringer's 1,000 ML IV SCH (09:15)
[2020-07-06] MEDS ORDERED: Propofol 1,000 MG/100 ML VIAL IV ONE (09:52)
[2020-07-06] MEDS: Sodium Chloride 0.9% 1,000 ML IV SCH ×2 (10:00→17:55)
[2020-07-06 10:14] LABS: Actual Bicarbonate (HCO3a) 21.5 mEq/L (22-28); Base Excess (BEa) -4.5 mEq/L (-2.0 to +3.0); CO2 Tension 42.4 mmHg (35.0-45.0); Calcium, Ionized (arterial) 1.18 mmol/L (1.12-1.30); Carboxyhemoglobin (COHb) 0.2 gm% (0.0-3.0); Hemoglobin (Hb) 17.1 g/dL (14.0-18.0); O2 Tension (PaO2), arterial 77.2 mmHg (80.0-100.0); Potassium - ABG Lab 4.92 mmol/L (3.70-5.30); pH, Arterial 7.32 (7.35-7.45)
[2020-07-06 10:19] LABS: Puncture Site RRAD
[2020-07-06] MEDS ORDERED: Fentanyl BOLUS 250 ML IVPB PRN (10:19)
[2020-07-06] MEDS ORDERED: Morphine 2 MG/ML VIAL SLOW IVP PRN (10:19)
[2020-07-06] MEDS ORDERED: DISCONTINUE PREVIOUS NARCOTIC PAIN MEDICATIONS AND BENZODIAZEPINES FS SCH (10:19)
[2020-07-06] MEDS ORDERED: Propofol BOLUS 1,000 MG/100 ML VIAL IV PRN (10:19)
[2020-07-06] MEDS ORDERED: Rocuronium Bromide 50 MG/5 ML VIAL IVP SCH (10:30)
[2020-07-06] MEDS: fentaNYL Citrate/PF 2,000 MCG in Sodium Chloride 0.9% 60 ML IV SCH (10:37)
[2020-07-06] MEDS: chlorproMAZINE HCl 25 MG TAB PO SCH ×3 (11:07→20:50)
--- NOTE | 2020-07-06 11:08 | RAD ---
CHEST 1 VIEW: HISTORY: Pneumonia. COMPARISON: Radiograph of chest 06/28/2020. FINDINGS: Mild worsened lung aeration with relative sparring of the left upper lobe. No pneumothorax. No sign ificant effusion. Heart size is enlarged. IMPRESSION: Slight worsening of lung aeration. POS: HOME
--- NOTE | 2020-07-06 11:12 | PRG ---
DATE OF SERVICE: 07/06/2020 SUBJECTIVE: Leonel Reynoso is starting to say he is tired. OBJECTIVE: VITAL SIGNS: He is breathing in high 30s to low 40s, heart rate is in the 80s, blood pressure is 110/73 this morning. LUNGS: Unchanged. HEART: Unchanged. ABDOMEN: Unchanged. LABORATORY DATA: White count 13, hemoglobin 16.2, platelets 184. Sodium 132, potassium 4.9, chloride 105, bicarb 20, BUN 27, creatinine 0.8, glucose 225. Because of his complaints of developing fatigue, I have recommended intubation this morning. Chest radiograph shows diffuse infiltrates, right greater than left chest, but his left upper lobe has actually quite spared. I suspect several weeks into this COVID process. Hopefully with mechanical ventilation, proning, and high-dose steroids, anticoagulation, empiric antibiotics in some time, we will see some gradual improvement. Critical care time 30 min. Job ID: [id number] MTDD
[2020-07-06] MEDS: Vecuronium 10 MG VIAL IVP PRN ×6 (12:18→22:47)
[2020-07-06] MEDS: Propofol 1,000 MG/100 ML VIAL IV PRN ×2 (14:26→21:46)
[2020-07-06] MEDS ORDERED: Sterile Water 10 ML ONE (20:48)
[2020-07-06] MEDS ORDERED: Bacteriostatic Normal Saline 30 ML VIAL ONE (20:48)
[2020-07-07] MEDS: Vecuronium 10 MG VIAL IVP PRN ×4 (00:31→10:10)
[2020-07-07] MEDS: methylPREDNISolone Sod Succ/PF 125 MG/2 ML VIAL IVP SCH (01:29)
[2020-07-07] MEDS: fentaNYL Citrate/PF 2,000 MCG in Sodium Chloride 0.9% 60 ML IV SCH ×2 (01:30→18:46)
[2020-07-07] MEDS: Sodium Chloride 0.9% 1,000 ML IV SCH ×3 (03:26→17:04)
[2020-07-07 03:52] LABS: #Basophils 0.1 thou/uL (0.0-0.2); #Lymphocytes 0.4 thou/uL (1.20-3.40); #Monocytes 0.4 thou/uL (0.11-0.59); %Basophils 0.6 % (0.0-1.0); %Eosinophils 0.1 % (0.0-10.0); %Lymphocytes 2.5 % (21.0-51.0); %Monocytes 2.8 % (0.0-10.0); %Neutrophils 94.2 % (42.0-75.0); Hemoglobin 15.6 g/dL (14.0-18.0); Mean Corpuscular HGB CONC 32.1 g/dL (32.0-36.0); Mean Corpuscular Hemoglobin 31.5 pg (27.0-31.0); Mean Corpuscular Volume 98.2 fL (78.0-98.0); Platelet Count 159 thou/uL (130-400); RBC Distribution Width 12.5 % (11.5-14.5); Red Blood Cell (RBC) Count 4.97 mill/uL (4.70-6.10); White Blood Cell (WBC) Count 14.9 thou/uL (4.8-10.8)
[2020-07-07 04:15] LABS: ALT (SGPT) 43 U/L (8-55); AST (SGOT) 17 U/L (5-34); Albumin 2.8 g/dL (3.5-5.0); Alkaline Phosphatase 58 U/L (40-110); Anion Gap 11 mmol/L (10-20); BUN (Urea Nitrogen) 26 mg/dL (8.4-25.7); Bilirubin, Total 0.4 mg/dL (0.2-1.2); Calc. Creatinine Clearance 121 mL/min (70-130); Carbon Dioxide 25 mmol/L (22-29); Chloride 105 mmol/L (98-107); Estimated GFR-MDRD Greater than 90; Globulin 3.3 g/dL (2.4-3.5); Glucose 169 mg/dL (70-105); Potassium 4.8 mmol/L (3.5-5.1); Protein, Total 6.1 g/dL (6.0-8.3); Sodium 136 mmol/L (136-145)
[2020-07-07] MEDS: Propofol 1,000 MG/100 ML VIAL IV PRN ×2 (05:43→20:19)
--- NOTE | 2020-07-07 05:53 | PDOC.FM ---
- Subjective Subjective: Patient is currently intubated, sedated, and prone. Aside from needing increased sedation at times, no acute events overnight. - Objective Vital Signs & Weight: Vital Signs (12 hours) Temp Pulse Resp BP Pulse Ox 07/07/20 04:00 97.1 F L 24 H 07/07/20 02:16 81 108/70 07/07/20 02:00 24 H 07/07/20 00:00 97.1 F L 24 H 07/06/20 22:01 75 106/64 07/06/20 22:00 24 H 07/06/20 20:00 97 F L 24 H 98 07/06/20 18:59 70 99/61 07/06/20 18:00 35 H Weight Weight 79.4 kg Most Recent Monitor Data Heart Rate from ECG 91 NIBP 122/75 NIBP BP-Mean 90 Respiration from ECG 24 SpO2 95 I&O: 07/05/20 07/06/20 07/07/20 06:59 06:59 06:59 Intake Total 30 1614 1143.4 Output Total 200 1635 1860 Balance -170 -21 -716.6 Result Diagrams: 07/07/20 03:38 07/07/20 03:38 Phys Exam - Physical Examination Intubated and sedated, patient is prone Eyes are taped Neck: no JVD, supple Intubated Respiratory: no wheezing coarse sounding breaths sounds bilaterally Cardiovascular: RRR, no significant murmur Gastrointestinal: no distention Musculoskeletal: no edema, pulses present Sedated Skin: no rash, normal turgor Dx/Plan (1) Sepsis Code(s): A41.9 - SEPSIS, UNSPECIFIED ORGANISM Status: Acute (2) Acute respiratory failure with hypoxia Code(s): J96.01 - ACUTE RESPIRATORY FAILURE WITH HYPOXIA Status: Acute (3) COVID-19 Code(s): U07.1 - COVID-19 Status: Acute (4) DM2 (diabetes mellitus, type 2) Status: Acute (5) Thrombocytopenia Code(s): D69.6 - THROMBOCYTOPENIA, UNSPECIFIED Status: Acute (6) PNA (pneumonia) Code(s): J18.9 - PNEUMONIA, UNSPECIFIED ORGANISM Status: Acute - Plan Plan: 54 y/o male who recently immigrated from [place] for medical treatment who presented with COVID-19 Pneumonia. #Acute Hypoxic Resp Failure and Sepsis 2/2 COVID PNA #Intubated/Sedated -Pt presented with 2wk hx of reported PNA, however worsened acutely before admission -IgG Covid points to prolonged infection, although course timing is abnormal for COVID -HFNC>BIPAP>intubated 07/06 due to respiratory fatigue, patient is prone -MAP 73-106 overnight, not requiring vasopressors for support -+PPI today for GI prophylaxis -Sedation: 30 propofol, 140 fentanyl -Bilevel: PEEP high 29, PEEP low 12, pressure support 12, tve 370s-390s, I:E 1:1.2, RR 24, FiO2 50% -Patient is paralyzed, overbreathes vent when paralytic begins to wear off -Patient has OG tube, consider starting feeds today -Simons in place, urine output approx 81ml/hr overnight -ID consulted and pt does not meet criteria for Remdesivir or Convalescent Plasma d/t prolonged course -s/p course of Abx (Rocephin and Azithromycin), Pulmonology consulted 07/06 and added Doxycycline as well as increased steroids to Solu-Medrol 80mg IV BID. -D-dimer, CRP, and Ferritin all trending down -Lovenox BID increased 07/05 to 60mg BID 2/2 sub-therapeutic anti-Xa level, re- check today #Hiccups -Patient had hiccups prior to intubation -thorazine was scheduled and helping #Anxiety -prn Ativan and Atarax while awake #DM2 -blood glucose upper 100s-low 200s, Mild SSI on board, required 10u yesterday -patient not eating as currently intubated, increase in blood glucose likely 2/ 2 steroids -will likely start long-acting insulin today as we begin OG tube feeds -HgA1c: 6.5 -hold Metformin 500 mg PO while intubated #Travel to [place] -Quant Gold: Indeterminate, low suspicion for TB -Consider PPD as outpatient #Transaminitis, resolved -continued improvement -Hepatitis A antibody + -Hepatitis Panel wnl -suspect EtOH per hx #Thrombocytopenia -initial platelets 120>159 this morning -will continue to monitor PCP: CC - None Code: Full Diet: NPO-intubated VTE PPx: Lovenox BID GI PPx: None IVF: NS @ 100ml/hr Lines/Tubes: 2 peripheral, OG tube Dispo: Patient is currently intubated/sedated for pulmonary fatigue related to Acute Hypoxic Respiratory Failure and Sepsis 2/2 COVID-19 Pneumonia. Addendum - Attending - Attending Attestation Date/Time: 07/07/20 5930 I personally evaluated the patient and discussed the management with the team. I agree with the History, Examination, Assessment and Plan documented above with any addition or exceptions noted below. Wean vent as able. Repeat CXR to confirm proper placement of OG tube, then begin enteral nutrition and d/c IVF as able.
[2020-07-07] MEDS: HumaLOG 300 UNITS/3 ML VIAL SC PRN ×2 (06:05→23:57)
[2020-07-07] MEDS ORDERED: Sterile Water 0 ML ONE (06:18)
[2020-07-07 07:00] LABS: Actual Bicarbonate (HCO3a) 23.9 mEq/L (22-28); Base Excess (BEa) -2.9 mEq/L (-2.0 to +3.0); CO2 Tension 48.8 mmHg (35.0-45.0); Calcium, Ionized (arterial) 1.16 mmol/L (1.12-1.30); Carboxyhemoglobin (COHb) 0.6 gm% (0.0-3.0); Hemoglobin (Hb) 15.1 g/dL (14.0-18.0); O2 Tension (PaO2), arterial 72.2 mmHg (80.0-100.0); Potassium - ABG Lab 4.75 mmol/L (3.70-5.30); pH, Arterial 7.31 (7.35-7.45)
[2020-07-07 08:27] LABS: Puncture Site LRA
[2020-07-07] MEDS: Enoxaparin Sodium 60 MG/0.6 ML SYRINGE SC SCH ×2 (09:33→20:20)
[2020-07-07] MEDS: Pantoprazole 40 MG VIAL IVP SCH (09:33)
--- NOTE | 2020-07-07 09:39 | PRG ---
DATE OF SERVICE: 07/07/2020 35 minutes critical care time. SUBJECTIVE: The patient remains intubated on mechanical ventilation. He is in a prone position, but there are plans to move him back supine later this morning. OBJECTIVE: VITAL SIGNS: His temperature 98.5, pulse 62, blood pressure 95/63, 24-hour intake 2411, output 1945. HEENT: Unremarkable. NECK: No JVD. LUNGS: Coarse breath sounds posteriorly. CARDIAC: S1 and S2, regular. ABDOMEN: Obese. EXTREMITIES: No edema. LABORATORY DATA: White blood cell count 14.9, hematocrit 48.7, and platelet count 159. D-dimer 0.35. Sodium 136, potassium 4.8, chloride 105, CO2 of 25, BUN 26, creatinine 0.7, glucose 169. pH 7.31, pCO2 48, pO2 of 72 on bilevel rate 24, high pressure 29, low pressure 12, FiO2 of 50%. ASSESSMENT: 1. COVID-19 pneumonia. 2. Acute respiratory failure, requiring mechanical ventilation. PLAN: Continue anticoagulation, empiric antibiotics, and high-dose steroids. Job ID: [id number]
[2020-07-07] MEDS: chlorproMAZINE HCl 25 MG TAB PO SCH (09:47)
--- NOTE | 2020-07-07 10:41 | RAD ---
PORTABLE CHEST 1 VIEW: DATE: 07/07/2020. TIME: 9:52 AM. History Respiratory failure. COMPARISON: Previous day. FINDINGS/IMPRESSION: There has been interval placement of an endotracheal tube with tip just below the level of the clavic ular heads. The heart size is normal. Bilateral lung opacities show mild interval worsening since t he last exam. No pneumothoraces or large effusions are identified. Enteric tube is in the right main bronchus. D/W Dr Arreola over the phone @ 1120hrs POS: OFF
[2020-07-07] MEDS: methylPREDNISolone Sod Succ 40 MG VIAL IVP SCH (13:46)
[2020-07-07] MEDS ORDERED: NPH, Human Insulin Isophane 300 UNIT/3 ML VIAL SC SCH (16:45)
[2020-07-08] MEDS: methylPREDNISolone Sod Succ 40 MG VIAL IVP SCH ×2 (01:24→14:57)
[2020-07-08 04:52] LABS: #Lymphocytes 0.3 thou/uL (1.20-3.40); #Monocytes 0.4 thou/uL (0.11-0.59); #Neutrophils 10.8 thou/uL (1.40-6.50); %Eosinophils 0.1 % (0.0-10.0); %Lymphocytes 2.9 % (21.0-51.0); %Monocytes 3.6 % (0.0-10.0); %Neutrophils 93.5 % (42.0-75.0); Hemoglobin 14.2 g/dL (14.0-18.0); Mean Corpuscular HGB CONC 32.2 g/dL (32.0-36.0); Mean Corpuscular Hemoglobin 31.2 pg (27.0-31.0); Mean Corpuscular Volume 97.1 fL (78.0-98.0); Platelet Count 145 thou/uL (130-400); RBC Distribution Width 12.5 % (11.5-14.5); Red Blood Cell (RBC) Count 4.56 mill/uL (4.70-6.10); White Blood Cell (WBC) Count 11.6 thou/uL (4.8-10.8)
[2020-07-08 05:14] LABS: ALT (SGPT) 38 U/L (8-55); AST (SGOT) 25 U/L (5-34); Albumin 2.6 g/dL (3.5-5.0); Alkaline Phosphatase 47 U/L (40-110); Anion Gap 14 mmol/L (10-20); BUN (Urea Nitrogen) 31 mg/dL (8.4-25.7); Bilirubin, Total 0.5 mg/dL (0.2-1.2); Calc. Creatinine Clearance 114 mL/min (70-130); Calcium 7.6 mg/dL (7.8-10.44); Carbon Dioxide 23 mmol/L (22-29); Chloride 105 mmol/L (98-107); Estimated GFR-MDRD Greater than 90; Globulin 2.8 g/dL (2.4-3.5); Glucose 213 mg/dL (70-105); Potassium 4.8 mmol/L (3.5-5.1); Protein, Total 5.4 g/dL (6.0-8.3); Sodium 137 mmol/L (136-145)
--- NOTE | 2020-07-08 05:41 | PDOC.FM ---
- Subjective Subjective: Patient doing well this morning. Awake and alert during exam. Per nursing needs frequent suctioning. Patient denies any pain, can follow commands. Discussed continued tube feeds while ventilated, patient agreeable. RT was in room during exam and discussed that we would likely be weaning some of his ventilator settings today, patient agreeable. - Objective Vital Signs & Weight: Vital Signs (12 hours) Temp Pulse Resp BP Pulse Ox 07/08/20 04:00 24 H 07/08/20 03:00 98.7 F 07/08/20 02:13 55 L 144/65 H 07/08/20 02:00 24 H 07/08/20 00:00 99.0 F 24 H 07/07/20 22:15 67 07/07/20 22:00 24 H 07/07/20 20:00 98.8 F 24 H 07/07/20 19:45 98 07/07/20 18:10 59 L 07/07/20 18:00 24 H Weight Admit Weight 81.193 kg Weight 79.4 kg Most Recent Monitor Data Heart Rate from ECG 48 NIBP 111/69 NIBP BP-Mean 83 Respiration from ECG 24 SpO2 100 I&O: 07/06/20 07/07/20 07/08/20 06:59 06:59 06:59 Intake Total 1614 2411.8 1464.5 Output Total 1635 1945 1560 Balance -21 466.8 -95.5 Result Diagrams: 07/08/20 03:55 07/08/20 03:55 Phys Exam - Physical Examination Constitutional: NAD HEENT: moist MMs, sclera anicteric Neck: supple intubated Respiratory: no wheezing, no rales Cardiovascular: RRR, no significant murmur Gastrointestinal: soft, non-tender, no distention, positive bowel sounds Musculoskeletal: no edema, pulses present Neurological: moves all 4 limbs follows commands Psychiatric: normal affect Deviation from normal: subcutaneous emphysema on anterior chest Dx/Plan (1) Sepsis Code(s): A41.9 - SEPSIS, UNSPECIFIED ORGANISM Status: Acute (2) Acute respiratory failure with hypoxia Code(s): J96.01 - ACUTE RESPIRATORY FAILURE WITH HYPOXIA Status: Acute (3) COVID-19 Code(s): U07.1 - COVID-19 Status: Acute (4) DM2 (diabetes mellitus, type 2) Status: Acute (5) Thrombocytopenia Code(s): D69.6 - THROMBOCYTOPENIA, UNSPECIFIED Status: Acute (6) PNA (pneumonia) Code(s): J18.9 - PNEUMONIA, UNSPECIFIED ORGANISM Status: Acute - Plan Plan: 54 y/o male who recently immigrated from [place] for medical treatment who presented with COVID-19 Pneumonia. #Acute Hypoxic Resp Failure and Sepsis 2/2 COVID PNA #Intubated/Sedated -Pt presented with 2wk hx of reported PNA, however worsened acutely before admission -IgG Covid points to prolonged infection, although course timing is abnormal for COVID -HFNC>BIPAP>intubated 07/06 due to respiratory fatigue, patient is prone -MAP 72-100 overnight, not requiring vasopressors for support -+PPI 07/07 for GI prophylaxis -Sedation: 10 propofol, 80 fentanyl; patient awake and alert on exam, GCS 10T -Bilevel: PEEP high 29, PEEP low 12, pressure support 12, tve 440s, I:E 1:1.2 , RR 24, FiO2 50% -Patient transitioned from prone to supine morning 07/07, tolerated this well -Will likely begin to wean ventilator settings today -Patient has OG tube, replaced 07/07 due to mal-positioning; tube feeds started 07/07 afternoon, currently running @ 35ml/hr. D/C NS today when tube feeds at full rate -Simons in place, urine output approx 65ml/hr overnight -Subcutaneous crepitus noted over anterior chest, repeat CXR ordered, concern for pneumomediastinum -ID consulted and pt does not meet criteria for Remdesivir or Convalescent Plasma d/t prolonged course -s/p course of Abx (Rocephin and Azithromycin), Pulmonology consulted 07/06 and added Doxycycline as well as increased steroids to Solu-Medrol 80mg IV BID. -D-dimer slightly up today, CRP, and Ferritin trending down -Lovenox BID increased 07/05 to 60mg BID 2/2 sub-therapeutic anti-Xa level, therapeutic on 07/07 #Hiccups -Patient had hiccups prior to intubation -thorazine was scheduled and helping #Anxiety -prn Ativan and Atarax while awake #DM2 -Mild SSI on board -Started 5u NPH afternoon of 07/07 with beginning tube feeds; required 4u of short -acting yesterday; glucose appears to be at goal during the day and above goal at night, will increase to 7u NPH qpm -HgA1c: 6.5 -hold Metformin 500 mg PO while intubated #Travel to [place] -Quant Gold: Indeterminate, low suspicion for TB -Consider PPD as outpatient #Transaminitis, resolved -continued improvement -Hepatitis A antibody + -Hepatitis Panel wnl -suspect EtOH per hx #Thrombocytopenia -initial platelets 120>145 this morning -will continue to monitor PCP: CC - None Code: Full Diet: tube feeds @ 35ml/hr-intubated VTE PPx: Lovenox BID GI PPx: Pantoprazole IVF: NS @ 50ml/hr Lines/Tubes: 2 peripheral, OG tube Dispo: Patient is currently intubated/sedated for pulmonary fatigue related to Acute Hypoxic Respiratory Failure and Sepsis 2/2 COVID-19 Pneumonia. Addendum - Attending - Attending Attestation Date/Time: 07/08/20 9854 I personally evaluated the patient and discussed the management with Dr. Arreola. I agree with the History, Examination, Assessment and Plan documented above with any addition or exceptions noted below. Now with spontaneous PTX. D/w pulm and CTSx concerning need for CT. No distress and decreasing vent requirements currently.
[2020-07-08] MEDS: HumaLOG 300 UNITS/3 ML VIAL SC PRN ×3 (05:46→17:19)
[2020-07-08 07:02] LABS: Actual Bicarbonate (HCO3a) 23.6 mEq/L (22-28); Base Excess (BEa) -0.4 mEq/L (-2.0 to +3.0); CO2 Tension 36.9 mmHg (35.0-45.0); Calcium, Ionized (arterial) 1.15 mmol/L (1.12-1.30); Carboxyhemoglobin (COHb) 0.5 gm% (0.0-3.0); Hemoglobin (Hb) 15.4 g/dL (14.0-18.0); O2 Tension (PaO2), arterial 70.5 mmHg (80.0-100.0); Potassium - ABG Lab 4.48 mmol/L (3.70-5.30); pH, Arterial 7.42 (7.35-7.45)
[2020-07-08] MEDS: Enoxaparin Sodium 60 MG/0.6 ML SYRINGE SC SCH ×2 (07:17→20:03)
[2020-07-08] MEDS: Fludrocortisone Acetate 0.1 MG TAB PER TUBE SCH (07:18)
[2020-07-08] MEDS: Pantoprazole 40 MG VIAL IVP SCH (07:18)
[2020-07-08 07:22] LABS: ALV-art Gradient 239.875 (0-20); Puncture Site LRA
[2020-07-08] MEDS ORDERED: NPH, Human Insulin Isophane 300 UNIT/3 ML VIAL SC SCH ×2 (09:00→17:00)
[2020-07-08] MEDS: Propofol 1,000 MG/100 ML VIAL IV PRN ×2 (09:41→22:32)
[2020-07-08] MEDS: Lorazepam 2 MG/ML VIAL SLOW IVP PRN ×2 (12:29→17:16)
--- NOTE | 2020-07-08 12:34 | RAD ---
Chest AP view INDICATION: Chest pain COMPARISON: Prior exam dated July 07, 2020 FINDINGS: Lungs: Bilateral airspace disease involving the right lung and left lower lobe persists suspicious f or pneumonia. Cardiac silhouette: The cardiomediastinal silhouette appears within normal limits. No overt mediasti nal shift is noted. Pulmonary vasculature: Normal Pleural spaces: There is been interval development of a [id number] left-sided pneumothorax wi th subcutaneous emphysema involving the neck base and left chest wall. Upper abdomen: Gastric catheter tip projects in the region of the gastric antrum.. Osseous structures: No acute osseous abnormality. Additional findings: Patient's ET tube tip is 3.9 cm a follow-up kasey. IMPRESSION: Small moderate left-sided pneumothorax with subcutaneous emphysema involving the neck base and left c hest wall. Findings called to Brandon Esposito RN at 12:30 PM on July 08, 2020. Stable bilateral pneumonias. Stable ET tube and gastric catheter.
[2020-07-08] MEDS: Sodium Chloride 0.9% 1,000 ML IV SCH (12:36)
[2020-07-08] MEDS ORDERED: Sodium Chloride 0.9% 1,000 ML IV SCH (14:45)
--- NOTE | 2020-07-08 15:25 | PRG ---
DATE OF SERVICE: 07/08/2020 SUBJECTIVE: Mr. Reynoso is clinically unchanged. He did have subcu air today. Radiograph for this morning did not get done until lunch. He has pneumomediastinum on the radiograph, but also has very small lateral and superior pneumothorax. OBJECTIVE: GENERAL: He is in no distress. VITAL SIGNS: Respiratory rates in the 20s, FiO2 is down to 40%, blood pressure 120/76. His PEEP was cut down to 8 this morning and his high PEEP has been decreased. His tidal volume has been increasing during the day. LUNGS: Otherwise unchanged. HEART: Otherwise unchanged. ABDOMEN: Otherwise unchanged. LABORATORY DATA: White count 11.6, hemoglobin 14.2, platelets 145. Electrolytes are unremarkable. IMPRESSION: 1. Trauma-induced pneumomediastinum with small pneumothorax. Plan to discuss the above with Cardiothoracic surgery. 2. COVID pneumonia, clinically stable, likely more than 2 weeks into this. Critical care time 30 min. Job ID: [id number] MTDD
[2020-07-08] MEDS ORDERED: Lidocaine 1% w/Epinephrine 1:100K 20 ML VIAL ONE (15:57)
--- NOTE | 2020-07-08 16:01 | RAD ---
XR Chest 1 View Portable History: Pneumothorax Comparison: Radiograph same day Findings: Moderate left pneumothorax has increased. There is pneumomediastinum. Endotracheal tube tip is above the kasey 4.2 cm. Enteric tube tip below diaphragm although out of fi eld of view. Subcutaneous emphysema has progressed. Concern for anterior right-sided pneumothorax. Impression: 1. Enlarging left pneumothorax. 2. Prominent pneumomediastinum. 3. Concern for anterior right pneumothorax.
[2020-07-08] MEDS: fentaNYL Citrate/PF 2,000 MCG in Sodium Chloride 0.9% 60 ML IV SCH (16:08)
--- NOTE | 2020-07-08 17:19 | RAD ---
RADIOGRAPH CHEST 1 VIEW: DATE: 07/08/2020 TIME: 4:48 PM HISTORY: 54-year-old male status post chest tube placement for pneumothorax COMPARISON: 07/08/2020 3:42 PM FINDINGS: New left base chest tube. Left pneumothorax no longer visualized. No right pneumothorax visualized. P reviously demonstrated diffuse interstitial alveolar densities throughout the right lung have almost completely resolved. Airspace densities at left base remain. No cardiomegaly. Extensive subcut aneous emphysema. No change in other life support lines IMPRESSION: 1. Interval decrease in size of left pneumothorax upon left chest tube placement. 2. Interval improvement in aeration of the right lung: Resolution of pulmonary interstitial edema daisy aterally. 3. Airspace densities at the left base remain. 4. Subcutaneous emphysema.
[2020-07-09] MEDS: HumaLOG 300 UNITS/3 ML VIAL SC PRN ×4 (00:43→16:56)
[2020-07-09] MEDS: methylPREDNISolone Sod Succ 40 MG VIAL IVP SCH ×2 (01:47→13:37)
[2020-07-09] MEDS: Lorazepam 2 MG/ML VIAL SLOW IVP PRN ×3 (01:47→19:38)
--- NOTE | 2020-07-09 05:40 | PDOC.FM ---
- Subjective Subjective: Patient doing well this morning. Endorses some tenderness around the site of the chest tube insertion. Tolerated the vent well overnight. Tolerating tube feeds. - Objective Vital Signs & Weight: Vital Signs (12 hours) Temp Pulse Resp BP Pulse Ox 07/09/20 04:00 98.9 F 07/09/20 03:48 24 H 07/09/20 02:10 75 122/75 07/09/20 02:00 24 H 07/09/20 00:00 97.1 F L 24 H 07/08/20 22:00 24 H 07/08/20 21:42 59 L 124/80 07/08/20 20:00 97.2 F L 24 H 99 07/08/20 18:48 67 128/84 07/08/20 17:59 24 H Weight Admit Weight 81.193 kg Weight 81.3 kg Most Recent Monitor Data Heart Rate from ECG 71 NIBP 121/78 NIBP BP-Mean 92 Respiration from ECG 24 SpO2 98 I&O: 07/07/20 07/08/20 07/09/20 06:59 06:59 06:59 Intake Total 2411.8 2508.2 1578 Output Total 1945 1635 1625 Balance 466.8 873.2 -47 Result Diagrams: 07/09/20 05:10 07/09/20 05:10 Phys Exam - Physical Examination Constitutional: NAD intubated HEENT: moist MMs, sclera anicteric Neck: supple intubated, crepitus appreciated Respiratory: no wheezing, no rhonchi Cardiovascular: RRR, no significant murmur Gastrointestinal: soft, non-tender, no distention, positive bowel sounds Musculoskeletal: no edema Neurological: moves all 4 limbs Psychiatric: normal affect Skin: no rash, normal turgor Deviation from normal: chest tube in place on the left Dx/Plan (1) Sepsis Code(s): A41.9 - SEPSIS, UNSPECIFIED ORGANISM Status: Acute (2) Acute respiratory failure with hypoxia Code(s): J96.01 - ACUTE RESPIRATORY FAILURE WITH HYPOXIA Status: Acute (3) COVID-19 Code(s): U07.1 - COVID-19 Status: Acute (4) DM2 (diabetes mellitus, type 2) Status: Acute (5) Thrombocytopenia Code(s): D69.6 - THROMBOCYTOPENIA, UNSPECIFIED Status: Acute (6) PNA (pneumonia) Code(s): J18.9 - PNEUMONIA, UNSPECIFIED ORGANISM Status: Acute - Plan Plan: 54 y/o male who recently immigrated from [place] for medical treatment who presented with COVID-19 Pneumonia. #Acute Hypoxic Resp Failure and Sepsis 2/2 COVID PNA #Intubated/Sedated #Left pneumothorax, improved -Pt presented with 2wk hx of reported PNA, however worsened acutely before admission -IgG Covid points to prolonged infection, although course timing is abnormal for COVID -HFNC>BIPAP>intubated 07/06 due to respiratory fatigue, patient is prone -MAP 82-135 overnight, not requiring vasopressors for support -+PPI 07/07 for GI prophylaxis -Sedation: 10 propofol, 80 fentanyl; patient awake and alert on exam, GCS 10T -Bilevel: PEEP high 27, PEEP low 8, pressure support 12, tve 450s, I:E 1:1.2 , RR 24, FiO2 50% -Patient transitioned from prone to supine morning 07/07, tolerated this well -Patient tries to breath over vent at times but tolerating the vent well overall -May continue to try to wean vent settings today -CXR 07/08 revealed L-sided small/moderate pneumothorax -repeat CXR demonstrated expansion -L-sided chest tube inserted 07/08, no leaks appreciated -CXR today pending -Continues to have some subcutaneous crepitus on his chest and around his neck -Patient has OG tube, replaced 07/07 due to mal-positioning; tube feeds started 07/07 afternoon, currently running @ 45ml/hr. -IVF D/C 07/08 -Simons in place, urine output approx 67ml/hr overnight -ID consulted and pt does not meet criteria for Remdesivir or Convalescent Plasma d/t prolonged course -s/p course of Abx (Rocephin and Azithromycin), Pulmonology consulted 07/06 and added Doxycycline as well as increased steroids to Solu-Medrol 80mg IV BID. -D-dimer slightly up today, CRP, and Ferritin trending down -Lovenox BID increased 07/05 to 60mg BID 2/2 sub-therapeutic anti-Xa level, therapeutic on 07/07 #Hiccups -Patient had hiccups prior to intubation -thorazine was scheduled and helping #Anxiety -prn Ativan and Atarax while awake #DM2 -Mild SSI on board, required 9u SSI yesterday, 3u this morning -Will increase to 7u NPH BID as patient is now on full tube feeds @ 45ml/hr -HgA1c: 6.5 -hold Metformin 500 mg PO while intubated #Travel to [place] -Quant Gold: Indeterminate, low suspicion for TB -Consider PPD as outpatient #Transaminitis, resolved -continued improvement -Hepatitis A antibody + -Hepatitis Panel wnl -suspect EtOH per hx #Thrombocytopenia -initial platelets 120>118 this am s/p chest tube placement 07/08 -will continue to monitor PCP: CC - None Code: Full Diet: tube feeds @ 45ml/hr-intubated VTE PPx: Lovenox BID GI PPx: Pantoprazole IVF: TKO Lines/Tubes: 2 peripheral, OG tube, L-sided chest tube Dispo: Patient is currently intubated/sedated for pulmonary fatigue related to Acute Hypoxic Respiratory Failure and Sepsis 2/2 COVID-19 Pneumonia. Addendum - Attending - Attending Attestation Date/Time: 07/09/20 7176 I personally evaluated the patient and discussed the management with Dr. Arreola. I agree with the History, Examination, Assessment and Plan documented above with any addition or exceptions noted below. Continue to titrate insulin. Wean vent as tolerated. PTX improved s/p CT.
[2020-07-09 05:49] LABS: #Lymphocytes 0.3 thou/uL (1.20-3.40); #Monocytes 0.4 thou/uL (0.11-0.59); #Neutrophils 7.9 thou/uL (1.40-6.50); %Eosinophils 0.1 % (0.0-10.0); %Lymphocytes 2.9 % (21.0-51.0); %Monocytes 4.9 % (0.0-10.0); %Neutrophils 92.2 % (42.0-75.0); Hemoglobin 14.3 g/dL (14.0-18.0); Mean Corpuscular HGB CONC 32.7 g/dL (32.0-36.0); Mean Corpuscular Hemoglobin 31.7 pg (27.0-31.0); Mean Platelet Volume 11.5 fL (7.4-10.4); Platelet Count 118 thou/uL (130-400); RBC Distribution Width 12.5 % (11.5-14.5); Red Blood Cell (RBC) Count 4.52 mill/uL (4.70-6.10); White Blood Cell (WBC) Count 8.6 thou/uL (4.8-10.8)
[2020-07-09 06:11] LABS: Anion Gap 11 mmol/L (10-20); BUN (Urea Nitrogen) 30 mg/dL (8.4-25.7); Calc. Creatinine Clearance 126 mL/min (70-130); Calcium 7.9 mg/dL (7.8-10.44); Carbon Dioxide 26 mmol/L (22-29); Chloride 104 mmol/L (98-107); Estimated GFR-MDRD Greater than 90; Glucose 289 mg/dL (70-105); Potassium 4.8 mmol/L (3.5-5.1); Sodium 136 mmol/L (136-145)
[2020-07-09 07:20] LABS: Actual Bicarbonate (HCO3a) 25.7 mEq/L (22-28); Base Excess (BEa) 1.4 mEq/L (-2.0 to +3.0); CO2 Tension 39.5 mmHg (35.0-45.0); Calcium, Ionized (arterial) 1.15 mmol/L (1.12-1.30); Carboxyhemoglobin (COHb) 0.6 gm% (0.0-3.0); Hemoglobin (Hb) 14.9 g/dL (14.0-18.0); O2 Tension (PaO2), arterial 73.2 mmHg (80.0-100.0); Potassium - ABG Lab 4.39 mmol/L (3.70-5.30); pH, Arterial 7.43 (7.35-7.45)
[2020-07-09 07:27] LABS: ALV-art Gradient 233.925 (0-20); Puncture Site L.R.
--- NOTE | 2020-07-09 07:46 | RAD ---
Portable frontal chest radiograph: 07/09/2020 COMPARISON: 07/08/2020 HISTORY: Ventilated patient FINDINGS: Stable endotracheal tube and nasogastric tube. Chest tube overlies the left lung base, stab le. Nonspecific increased linear interstitial density noted in the perihilar regions and both lung bases with superimposed ground glass opacities/airspace disease, similar when compared to prior imagi ng. There is subcutaneous gas overlying the chest wall and neck bilaterally with probable pneumomediastinum. The degree of subcutaneous gas and pulmonary parenchymal opacity limits detailed a ssessment for underlying pneumothorax. IMPRESSION: Portable chest radiograph as detailed above. Stable lines and tubes. Possible pneumomedia stinum. Subcutaneous gas limits assessment for underlying pneumothorax. Follow-up advised.
[2020-07-09] MEDS: Fludrocortisone Acetate 0.1 MG TAB PER TUBE SCH (08:16)
[2020-07-09] MEDS: Enoxaparin Sodium 60 MG/0.6 ML SYRINGE SC SCH ×2 (08:16→19:39)
[2020-07-09] MEDS: NPH, Human Insulin Isophane 300 UNIT/3 ML VIAL SC SCH ×2 (08:17→19:39)
[2020-07-09] MEDS: Sodium Chloride 0.9% (PF) 10 ML VIAL FS PRN (09:47)
[2020-07-09] MEDS: Pantoprazole 40 MG VIAL IVP SCH (09:47)
--- NOTE | 2020-07-09 10:36 | OP ---
DATE OF PROCEDURE: 07/08/2020 PREOPERATIVE DIAGNOSIS: COVID pneumonia with left pneumothorax. PROCEDURE PERFORMED: Chest tube insertion. ANESTHESIA: 1% lidocaine. DESCRIPTION OF PROCEDURE: After prepping and draping the left chest and giving some IV sedation, 1% lidocaine was used to infiltrate in the anterior axillary line about 4 fingerbreadths below the nipple. Incision was made, further lidocaine placed in the intercostal space, and a tunnel created and the chest entered. A 28-tube was then advanced and secured to the skin. Completion chest x-ray showed no residual pneumothorax, although the tube maybe in the fissure. In any event, the patient tolerated the procedure well with minimal blood loss and no significant chest tube output. Job ID: [id number]
[2020-07-09] MEDS: Propofol 1,000 MG/100 ML VIAL IV PRN ×2 (11:14→19:37)
--- NOTE | 2020-07-09 15:42 | PRG ---
DATE OF SERVICE: 07/09/2020 SUBJECTIVE: Leonel Reynoso remains mechanically ventilated. OBJECTIVE: VITAL SIGNS: Respiratory rate is 24, FiO2 is at 50%, blood pressure 144/87. LUNGS: Unchanged. HEART: Unchanged. ABDOMEN: Unchanged. LABORATORY DATA: White count 8.6, hemoglobin 14.3, platelets 118. Sodium 136, potassium 4.8. BUN 30, creatinine 0.78. IMPRESSION: 1. COVID pneumonia, clinically stable. 2. Status post placement of a chest tube for a pneumothorax. No air leak today. Chest x-ray still shows pneumomediastinum. Because of the subcutaneous air, radiograph is difficult to interpret, but I am sure his lungs are inflated. We will continue supportive care. Critical care time 30 min. Job ID: [id number] MTDD
[2020-07-09] MEDS: fentaNYL Citrate/PF 2,000 MCG in Sodium Chloride 0.9% 60 ML IV SCH (15:51)
[2020-07-10] MEDS: Propofol 1,000 MG/100 ML VIAL IV PRN ×3 (01:09→21:26)
[2020-07-10] MEDS: methylPREDNISolone Sod Succ 40 MG VIAL IVP SCH ×2 (01:09→14:02)
[2020-07-10] MEDS: HumaLOG 300 UNITS/3 ML VIAL SC PRN ×2 (04:29→10:05)
[2020-07-10 04:49] LABS: #Lymphocytes 0.4 thou/uL (1.20-3.40); #Monocytes 0.4 thou/uL (0.11-0.59); #Neutrophils 8.2 thou/uL (1.40-6.50); %Basophils 0.5 % (0.0-1.0); %Eosinophils 0.2 % (0.0-10.0); %Lymphocytes 4.3 % (21.0-51.0); %Monocytes 3.9 % (0.0-10.0); %Neutrophils 91.2 % (42.0-75.0); Hemoglobin 13.2 g/dL (14.0-18.0); Mean Corpuscular HGB CONC 31.9 g/dL (32.0-36.0); Mean Corpuscular Hemoglobin 31.2 pg (27.0-31.0); Mean Corpuscular Volume 97.8 fL (78.0-98.0); Mean Platelet Volume 11.6 fL (7.4-10.4); Platelet Count 116 thou/uL (130-400); RBC Distribution Width 12.3 % (11.5-14.5); Red Blood Cell (RBC) Count 4.23 mill/uL (4.70-6.10)
--- NOTE | 2020-07-10 05:53 | PDOC.FM ---
- Subjective Subjective: Patient had a coughing fit last night and per nursing his ET tube had come out of place. RT helped to replace the ET tube to the previous position. Patient also struggled with anxiety and at times required ativan and/or a propofol bolus. - Objective Vital Signs & Weight: Vital Signs (12 hours) Temp Pulse Resp BP Pulse Ox 07/10/20 04:00 24 H 07/10/20 02:04 54 L 95/59 L 07/10/20 02:00 24 H 07/10/20 01:00 98.4 F 07/10/20 00:00 24 H 07/09/20 22:00 24 H 07/09/20 21:24 49 L 96/66 07/09/20 20:00 98.2 F 24 H 98 07/09/20 18:19 48 L 139/86 07/09/20 18:00 24 H Weight Admit Weight 81.193 kg Weight 81.3 kg Most Recent Monitor Data Heart Rate from ECG 54 NIBP 112/66 NIBP BP-Mean 81 Respiration from ECG 24 SpO2 100 I&O: 07/08/20 07/09/20 07/10/20 06:59 06:59 06:59 Intake Total 2508.2 2379.9 1028.6 Output Total 1635 1670 1385 Balance 873.2 709.9 -356.4 Result Diagrams: 07/10/20 04:00 07/09/20 05:10 Phys Exam - Physical Examination intubated HEENT: moist MMs, sclera anicteric Neck: supple intubated Respiratory: no wheezing, clear to auscultation bilateral Cardiovascular: RRR, no significant murmur Gastrointestinal: soft, non-tender, no distention, positive bowel sounds Musculoskeletal: no edema, pulses present Neurological: non-focal, moves all 4 limbs Psychiatric: normal affect Skin: normal turgor, cap refill <2 seconds Dx/Plan (1) Sepsis Code(s): A41.9 - SEPSIS, UNSPECIFIED ORGANISM Status: Acute (2) Acute respiratory failure with hypoxia Code(s): J96.01 - ACUTE RESPIRATORY FAILURE WITH HYPOXIA Status: Acute (3) COVID-19 Code(s): U07.1 - COVID-19 Status: Acute (4) DM2 (diabetes mellitus, type 2) Status: Acute (5) Thrombocytopenia Code(s): D69.6 - THROMBOCYTOPENIA, UNSPECIFIED Status: Acute (6) PNA (pneumonia) Code(s): J18.9 - PNEUMONIA, UNSPECIFIED ORGANISM Status: Acute - Plan Plan: 54 y/o male who recently immigrated from [place] for medical treatment who presented with COVID-19 Pneumonia. #Acute Hypoxic Resp Failure and Sepsis 2/2 COVID PNA #Intubated/Sedated #Left pneumothorax, improved -Pt presented with 2wk hx of reported PNA, however worsened acutely before admission -IgG Covid points to prolonged infection, although course timing is abnormal for COVID -HFNC>BIPAP>intubated 07/06 due to respiratory fatigue, patient is prone -MAP 71-109 overnight, not requiring vasopressors for support -+PPI 07/07 for GI prophylaxis -Sedation: 15 propofol, 80 fentanyl; patient awake and alert on exam, GCS 10T -Bilevel: PEEP high 27, PEEP low 8, pressure support 12, tve 450s, I:E 1:1.2 , RR 24, FiO2 50% -Patient transitioned from prone to supine morning 07/07, tolerated this well -Patient tries to breath over vent at times but tolerating the vent well overall -Has had coughing overnight, bolus of propofol and ativan helped with anxiety; repeat CXR this am pending -decreased pO2, possibly due to decreased tidal volumes while coughing/ when the ET tube was displaced -May continue to try to wean vent settings today -CXR 07/08 revealed L-sided small/moderate pneumothorax -repeat CXR demonstrated expansion -L-sided chest tube inserted 07/08, no leaks appreciated -10ml bloody drainage overnight -Continues to have some subcutaneous crepitus on his chest and around his neck -Patient has OG tube, replaced 07/07 due to mal-positioning; tube feeds started 07/07 afternoon, currently running @ 45ml/hr. -IVF D/C 07/08 -Simnos in place, urine output approx 57ml/hr overnight -ID consulted and pt does not meet criteria for Remdesivir or Convalescent Plasma d/t prolonged course -s/p course of Abx (Rocephin and Azithromycin), Pulmonology consulted 07/06 and added Doxycycline as well as increased steroids to Solu-Medrol 80mg IV BID. -D-dimer, CRP, and Ferritin trending down -Lovenox BID increased 07/05 to 60mg BID 2/2 sub-therapeutic anti-Xa level, therapeutic on 07/07 #Hiccups -Patient had hiccups prior to intubation -thorazine was scheduled and helping #Anxiety -prn Ativan and Atarax while awake -patient required increased propofol and ativan overnight due to anxiety #DM2 -Mild SSI on board, required 12u over last 24hrs -Will increase to 12u NPH BID as patient is now on full tube feeds @ 45ml/hr -will continue to monitor kidney function while giving insulin -HgA1c: 6.5 -hold Metformin 500 mg PO while intubated #Travel to [place] -Quant Gold: Indeterminate, low suspicion for TB -Consider PPD as outpatient #Transaminitis, resolved -continued improvement -Hepatitis A antibody + -Hepatitis Panel wnl -suspect EtOH per hx #Thrombocytopenia -initial platelets 120>116, stable from yesterday -will continue to monitor #Anemia -H/H dropped slightly overnight -platelets largely stable -patient has 10ml of bloody drainage in chest tube -abdomen soft -will continue to monitor #Constipation -patient has not had BM in several days -will start miralax per tube PCP: [facility] - None Code: Full Diet: tube feeds @ 45ml/hr-intubated VTE PPx: Lovenox BID GI PPx: Pantoprazole IVF: TKO Lines/Tubes: 2 peripheral, OG tube, L-sided chest tube Dispo: Patient is currently intubated/sedated for pulmonary fatigue related to Acute Hypoxic Respiratory Failure and Sepsis 2/2 COVID-19 Pneumonia. Addendum - Attending - Attending Attestation Date/Time: 07/10/20 0652 I personally evaluated the patient and discussed the management with Dr. Arreola. I agree with the History, Examination, Assessment and Plan documented above with any addition or exceptions noted below.
[2020-07-10] MEDS ORDERED: NPH, Human Insulin Isophane 300 UNIT/3 ML VIAL SC SCH ×7 (06:00→21:00)
[2020-07-10 06:52] LABS: Actual Bicarbonate (HCO3a) 26.5 mEq/L (22-28); Base Excess (BEa) 2.1 mEq/L (-2.0 to +3.0); CO2 Tension 40.9 mmHg (35.0-45.0); Calcium, Ionized (arterial) 1.15 mmol/L (1.12-1.30); Carboxyhemoglobin (COHb) 0.6 gm% (0.0-3.0); Hemoglobin (Hb) 14.3 g/dL (14.0-18.0); O2 Tension (PaO2), arterial 66.5 mmHg (80.0-100.0); Potassium - ABG Lab 4.52 mmol/L (3.70-5.30); pH, Arterial 7.43 (7.35-7.45)
[2020-07-10 06:54] LABS: Puncture Site RRA
[2020-07-10 06:56] LABS: ALV-art Gradient 238.875 (0-20)
[2020-07-10] MEDS: Enoxaparin Sodium 60 MG/0.6 ML SYRINGE SC SCH (07:36)
[2020-07-10] MEDS: Pantoprazole 40 MG VIAL IVP SCH (07:38)
[2020-07-10] MEDS: Sodium Chloride 0.9% (PF) 10 ML VIAL FS PRN (07:38)
[2020-07-10] MEDS: Fludrocortisone Acetate 0.1 MG TAB PER TUBE SCH (07:39)
--- NOTE | 2020-07-10 08:24 | RAD ---
CHST 1 VIEW: INDICATION: A 54-year-old male with a history of intubation. COMPARISON: Prior exam dated 07/09/2020. FINDINGS: There is bilateral airspace disease. There is extensive subcutaneous emphysema overlying the neck ba se and left chest wall. There is a left-sided bronchoscopy tube in place. There is a small residual left-sided pneumothorax. No definite right-sided pneumothorax is evident. Pneumomediastinum persis ts. Osseous structures are unchanged. IMPRESSION: 1. Left-sided thoracostomy tube with small left pneumothorax. 2. Persistent but improving pneumomediastinum. 3. Stable bilateral airspace disease consistent with pneumonia. 4. Improving but persistent subcutaneous emphysema involving the neck base and left chest wall. POS: BH
[2020-07-10] MEDS: Lorazepam 2 MG/ML VIAL SLOW IVP PRN ×2 (09:46→19:11)
[2020-07-10] MEDS: Polyethylene Glycol 3350 17 GM Packet PER TUBE SCH (09:47)
[2020-07-10] MEDS: fentaNYL Citrate/PF 2,000 MCG in Sodium Chloride 0.9% 60 ML IV SCH (15:43)
--- NOTE | 2020-07-10 17:39 | PRG ---
DATE OF SERVICE: 07/10/2020 SUBJECTIVE: Leonel Reynoso remains mechanically ventilated and sedated. OBJECTIVE: VITAL SIGNS: Blood pressure 170/94, FiO2 is at 50%, respiratory rate 24. Intake and output positive 95. LUNGS: Unchanged. HEART: Unchanged. ABDOMEN: Unchanged. LABORATORY DATA: White count 9, hemoglobin 13.2, platelets 116. Glucoses have been in the 200 range. No electrolytes done today. Blood gas; pH 7.43, pCO2 of 40, and pO2 of 66. Sodium on the blood gas is 133, potassium 4.5, chloride 102, still on bilevel 27/. Chest tube site was bleeding. His Lovenox will be held tonight and he will be placed on a decreased dose of Lovenox tomorrow. IMPRESSION AND PLAN: COVID pneumonia with pneumothorax, chest tube in place. He had significant pre-intubation anxiety. He clinically is probably getting close to a point where we might consider extubation, but with his anxiety, I think he would do poorly with ongoing BiPAP. We will probably see if we can decrease his ventilatory support a little bit more before we consider extubation. CRITICAL CARE TIME: 30 minutes. Job ID: [id number]
[2020-07-10] MEDS: NPH, Human Insulin Isophane 300 UNIT/3 ML VIAL SC SCH (19:10)
[2020-07-11] MEDS: methylPREDNISolone Sod Succ 40 MG VIAL IVP SCH ×2 (02:48→13:55)
[2020-07-11] MEDS: HumaLOG 300 UNITS/3 ML VIAL SC PRN (03:03)
[2020-07-11 04:06] LABS: #Lymphocytes 1.1 thou/uL (1.20-3.40); #Monocytes 0.5 thou/uL (0.11-0.59); #Neutrophils 7.8 thou/uL (1.40-6.50); %Basophils 0.1 % (0.0-1.0); %Eosinophils 0.2 % (0.0-10.0); %Neutrophils 82.8 % (42.0-75.0); Hemoglobin 13.4 g/dL (14.0-18.0); Mean Corpuscular HGB CONC 32.3 g/dL (32.0-36.0); Mean Corpuscular Hemoglobin 31.5 pg (27.0-31.0); Mean Corpuscular Volume 97.5 fL (78.0-98.0); Mean Platelet Volume 11.5 fL (7.4-10.4); Platelet Count 112 thou/uL (130-400); RBC Distribution Width 12.2 % (11.5-14.5); Red Blood Cell (RBC) Count 4.25 mill/uL (4.70-6.10); White Blood Cell (WBC) Count 9.4 thou/uL (4.8-10.8)
--- NOTE | 2020-07-11 05:43 | PDOC.FM ---
- Subjective Subjective: No acute events overnight. Patient's anxiety has improved. Decreased coughing. One chest tube dressing change per shift needed. - Objective Vital Signs & Weight: Vital Signs (12 hours) Temp Pulse Resp BP Pulse Ox 07/11/20 04:00 24 H 07/11/20 03:00 98.5 F 07/11/20 02:08 62 112/71 07/11/20 02:00 24 H 07/10/20 23:58 24 H 07/10/20 23:00 98.5 F 07/10/20 22:00 24 H 07/10/20 20:00 24 H 100 07/10/20 19:00 98.6 F 07/10/20 18:49 63 114/72 07/10/20 18:00 24 H Weight Admit Weight 81.193 kg Weight 82.1 kg Most Recent Monitor Data Heart Rate from ECG 46 NIBP 103/71 NIBP BP-Mean 81 Respiration from ECG 24 SpO2 100 I&O: 07/09/20 07/10/20 07/11/20 06:59 06:59 06:59 Intake Total 2379.9 1630.6 1054.6 Output Total 1670 1535 1558 Balance 709.9 95.6 -503.4 Result Diagrams: 07/11/20 03:30 07/09/20 05:10 Phys Exam - Physical Examination Constitutional: NAD intubated HEENT: moist MMs, sclera anicteric Neck: supple intubated Respiratory: clear to auscultation bilateral bradycardic, regular rhythm Gastrointestinal: soft, non-tender, no distention, positive bowel sounds Musculoskeletal: no edema, pulses present Neurological: moves all 4 limbs Psychiatric: normal affect Deviation from normal: Dressing over chest tube c/d/i Dx/Plan (1) Sepsis Code(s): A41.9 - SEPSIS, UNSPECIFIED ORGANISM Status: Acute (2) Acute respiratory failure with hypoxia Code(s): J96.01 - ACUTE RESPIRATORY FAILURE WITH HYPOXIA Status: Acute (3) COVID-19 Code(s): U07.1 - COVID-19 Status: Acute (4) DM2 (diabetes mellitus, type 2) Status: Acute (5) Thrombocytopenia Code(s): D69.6 - THROMBOCYTOPENIA, UNSPECIFIED Status: Acute (6) PNA (pneumonia) Code(s): J18.9 - PNEUMONIA, UNSPECIFIED ORGANISM Status: Acute - Plan Plan: 54 y/o male who recently immigrated from [place] for medical treatment who presented with COVID-19 Pneumonia. #Acute Hypoxic Resp Failure and Sepsis 2/2 COVID PNA #Intubated/Sedated #Left pneumothorax, improved -Pt presented with 2wk hx of reported PNA, however worsened acutely before admission -IgG Covid points to prolonged infection, although course timing is abnormal for COVID -HFNC>BIPAP>intubated 07/06 due to respiratory fatigue, patient is prone -MAP 66-103 overnight, not requiring vasopressors for support -+PPI 07/07 for GI prophylaxis -Sedation: 10 propofol, 80 fentanyl; patient awake and alert on exam, GCS 10T -Bilevel: PEEP high 27, PEEP low 8, pressure support 12, tve 440s, I:E 1:1.2 , RR 24, FiO2 50% -Patient transitioned from prone to supine morning 07/07, tolerated this well -Patient is not requiring as much propofol at this time (@10); repeat CXR this am pending -May continue to try to wean vent settings today, expect to hopefully extubate within next several days -CXR 07/08 revealed L-sided small/moderate pneumothorax -repeat CXR demonstrated expansion -L-sided chest tube inserted 07/08, no leaks appreciated -10ml bloody drainage overnight, 60ml overall; chest tube insertion site had some areas of bleeding throughout the day yesterday, requires about one chest tube dressing change per day -reducing lovenox to 40mg BID this am, skipped lovenox dose last night -will continue to monitor anti-xa level -Patient has OG tube, replaced 07/07 due to mal-positioning; tube feeds started 07/07 afternoon, currently running @ 45ml/hr. -IVF D/C 07/08 -Simons in place, urine output approx 65ml/hr overnight -ID consulted and pt does not meet criteria for Remdesivir or Convalescent Plasma d/t prolonged course -s/p course of Abx (Rocephin and Azithromycin), Pulmonology consulted 07/06 and added Doxycycline as well as increased steroids to Solu-Medrol 80mg IV BID. -D-dimer, CRP, and Ferritin trending down #Bradycardia -pulse in 40s-50s while patient is asleep -asymptomatic -common during the course of COVID pna -will continue to monitor #Hiccups -Patient had hiccups prior to intubation -thorazine was scheduled and helping #Anxiety -prn Ativan and Atarax while awake -patient did better overnight on reduced propofol rate #DM2 -Mild SSI on board -Will schedule 10mg NPH BID + 2u regular insulin q6h -patient is on full tube feeds @ 45ml/hr -HgA1c: 6.5 -hold Metformin 500 mg PO while intubated #Travel to [place] -Quant Gold: Indeterminate, low suspicion for TB -Consider PPD as outpatient #Transaminitis, resolved -continued improvement -Hepatitis A antibody + -Hepatitis Panel wnl -suspect EtOH per hx #Thrombocytopenia -initial platelets 116>112, stable from yesterday -will continue to monitor #Anemia -H/H on venous lab stable from yesterday -H/H on ABG yesterday demonstrated no drop from the day before -patient's chest tube has had some bleeding around the insertion site and had 10ml drainage yesterday -abdomen soft -will continue to monitor #Constipation -patient has not had BM in several days -continue miralax per tube PCP: CC - None Code: Full Diet: tube feeds @ 45ml/hr-intubated VTE PPx: Lovenox BID GI PPx: Pantoprazole IVF: TKO Lines/Tubes: 2 peripheral, OG tube, L-sided chest tube Dispo: Patient is currently intubated/sedated for pulmonary fatigue related to Acute Hypoxic Respiratory Failure and Sepsis 2/2 COVID-19 Pneumonia. Hopeful for continued weaning and extubation over the next several days. Addendum - Attending - Attending Attestation Date/Time: 07/11/20 0020 I personally evaluated the patient and discussed the management with Dr. Arreola. I agree with the History, Examination, Assessment and Plan documented above with any addition or exceptions noted below. Continue to titrate insulin. He needs to be weaned on the ventilator. He has been on AC for some time. Decrease rate and PS. FiO2 can be decreased markedly as well.
[2020-07-11 07:35] LABS: Actual Bicarbonate (HCO3a) 27.2 mEq/L (22-28); Base Excess (BEa) 3.1 mEq/L (-2.0 to +3.0); CO2 Tension 40.1 mmHg (35.0-45.0); Calcium, Ionized (arterial) 1.19 mmol/L (1.12-1.30); Hemoglobin (Hb) 14.2 g/dL (14.0-18.0); O2 Tension (PaO2), arterial 70.3 mmHg (80.0-100.0); Potassium - ABG Lab 4.44 mmol/L (3.70-5.30); pH, Arterial 7.45 (7.35-7.45)
[2020-07-11 07:36] LABS: ALV-art Gradient 236.075 (0-20); Puncture Site RR
--- NOTE | 2020-07-11 08:03 | RAD ---
XR Chest 1 View Portable History: Ventilated patient Comparison: Radiograph prior to Findings: Ventricular tube tip sits just below the level of clavicles. Enteric tube tip at the gastri c antrum. The examination is flipped horizontally. Left thoracostomy tube is similar. Subcutaneous emphysema has not significantly improved. Pneumomediastinum similar. Impression: Similar examination of the chest.
[2020-07-11] MEDS: Enoxaparin Sodium 40 MG/0.4 ML SYRINGE SC SCH ×2 (08:42→19:34)
[2020-07-11] MEDS: Fludrocortisone Acetate 0.1 MG TAB PER TUBE SCH (08:44)
[2020-07-11] MEDS: Pantoprazole 40 MG VIAL IVP SCH (08:45)
[2020-07-11] MEDS: Polyethylene Glycol 3350 17 GM Packet PER TUBE SCH (08:45)
--- NOTE | 2020-07-11 09:15 | PRG ---
DATE OF SERVICE: 07/11/2020 SUBJECTIVE: Leonel Lopes has remained stable. OBJECTIVE: VITAL SIGNS: He is afebrile. Blood pressure is 112/68, heart rate 53, oximetry is 100%. LUNGS: Unchanged. HEART: Unchanged. ABDOMEN: Unchanged. LABORATORY DATA: White count 9.4, hemoglobin 13.4, platelets 112,000. PH 7.45, CO2 40, pO2 of 70. IMPRESSION: 1. COVID pneumonia likely over 2 weeks into this. 2. He appears to be slowly improving. 3. His anxiety was a big issue prior to intubation. He may do well with a Precedex drip and hopefully if he is stable over the next few days, we would consider extubation. CRITICAL CARE TIME: 30 minutes. Job ID: [id number]
[2020-07-11] MEDS: Insulin Regular 300 UNITS/3 ML VIAL SC SCH ×3 (09:27→22:30)
[2020-07-11] MEDS: NPH, Human Insulin Isophane 300 UNIT/3 ML VIAL SC SCH ×2 (11:28→20:30)
[2020-07-11] MEDS: Propofol 1,000 MG/100 ML VIAL IV PRN ×2 (12:57→19:34)
[2020-07-11] MEDS: Lorazepam 2 MG/ML VIAL SLOW IVP PRN ×2 (13:55→19:34)
[2020-07-11] MEDS: fentaNYL Citrate/PF 2,000 MCG in Sodium Chloride 0.9% 60 ML IV SCH (14:24)
[2020-07-12] MEDS: Lorazepam 2 MG/ML VIAL SLOW IVP PRN ×7 (00:33→23:58)
[2020-07-12] MEDS: methylPREDNISolone Sod Succ 40 MG VIAL IVP SCH ×2 (00:33→14:27)
[2020-07-12] MEDS: Insulin Regular 300 UNITS/3 ML VIAL SC SCH (03:20)
[2020-07-12 04:17] LABS: #Eosinphils 0.1 thou/uL (0.0-0.7); #Lymphocytes 0.7 thou/uL (1.20-3.40); #Monocytes 0.4 thou/uL (0.11-0.59); #Neutrophils 11.4 thou/uL (1.40-6.50); %Basophils 0.3 % (0.0-1.0); %Eosinophils 0.4 % (0.0-10.0); %Lymphocytes 5.4 % (21.0-51.0); %Monocytes 3.3 % (0.0-10.0); %Neutrophils 90.6 % (42.0-75.0); Hemoglobin 14.1 g/dL (14.0-18.0); Mean Corpuscular HGB CONC 33.1 g/dL (32.0-36.0); Mean Corpuscular Hemoglobin 31.9 pg (27.0-31.0); Mean Corpuscular Volume 96.2 fL (78.0-98.0); Mean Platelet Volume 11.6 fL (7.4-10.4); Platelet Count 110 thou/uL (130-400); RBC Distribution Width 12.4 % (11.5-14.5); Red Blood Cell (RBC) Count 4.41 mill/uL (4.70-6.10); White Blood Cell (WBC) Count 12.6 thou/uL (4.8-10.8)
[2020-07-12 04:30] LABS: Anion Gap 11 mmol/L (10-20); BUN (Urea Nitrogen) 24 mg/dL (8.4-25.7); Calc. Creatinine Clearance 155 mL/min (70-130); Calcium 7.7 mg/dL (7.8-10.44); Carbon Dioxide 26 mmol/L (22-29); Chloride 101 mmol/L (98-107); Estimated GFR-MDRD Greater than 90; Glucose 139 mg/dL (70-105); Potassium 4.4 mmol/L (3.5-5.1); Sodium 134 mmol/L (136-145)
--- NOTE | 2020-07-12 05:36 | PDOC.FM ---
- Subjective Subjective: Intubated and sedated this morning. Had problems with anxiety overnight, had frequent episodes of coughing and trying to overbreathe the vent. Precedex transitioned back to propofol. - Objective Vital Signs & Weight: Vital Signs (12 hours) Temp Pulse Resp Pulse Ox 07/12/20 05:06 74 07/12/20 04:00 24 H 07/12/20 03:30 76 07/12/20 02:00 24 H 07/12/20 01:00 98.8 F 07/12/20 00:48 63 07/11/20 23:56 24 H 07/11/20 22:00 24 H 07/11/20 21:16 58 L 07/11/20 20:00 98.5 F 24 H 99 07/11/20 18:27 47 L 07/11/20 18:00 24 H Weight Admit Weight 81.193 kg Weight 81.2 kg Most Recent Monitor Data Heart Rate from ECG 67 NIBP 100/68 NIBP BP-Mean 78 Respiration from ECG 24 SpO2 98 I&O: 07/10/20 07/11/20 07/12/20 06:59 06:59 06:59 Intake Total 1630.6 1652.6 757 Output Total 1535 1718 1135 Balance 95.6 -65.4 -378 Result Diagrams: 07/12/20 03:30 07/12/20 03:30 Phys Exam - Physical Examination intubated and sedated HEENT: moist MMs, sclera anicteric intubated, crepitus appreciated on upper chest and lower neck course breath sounds Cardiovascular: RRR, no significant murmur Gastrointestinal: soft, no distention, positive bowel sounds Musculoskeletal: no edema Deviation from normal: sedated Skin: no rash Deviation from normal: chest tube site c/d/i Dx/Plan (1) Sepsis Code(s): A41.9 - SEPSIS, UNSPECIFIED ORGANISM Status: Acute (2) Acute respiratory failure with hypoxia Code(s): J96.01 - ACUTE RESPIRATORY FAILURE WITH HYPOXIA Status: Acute (3) COVID-19 Code(s): U07.1 - COVID-19 Status: Acute (4) DM2 (diabetes mellitus, type 2) Status: Acute (5) Thrombocytopenia Code(s): D69.6 - THROMBOCYTOPENIA, UNSPECIFIED Status: Acute (6) PNA (pneumonia) Code(s): J18.9 - PNEUMONIA, UNSPECIFIED ORGANISM Status: Acute - Plan Plan: 54 y/o male who recently immigrated from [place] for medical treatment who presented with COVID-19 Pneumonia. #Acute Hypoxic Resp Failure and Sepsis 2/2 COVID PNA #Intubated/Sedated #Left pneumothorax, improved -Pt presented with 2wk hx of reported PNA, however worsened acutely before admission -IgG Covid points to prolonged infection, although course timing is abnormal for COVID -HFNC>BIPAP>intubated 07/06 due to respiratory fatigue, patient is prone -MAP 65-91 overnight, not requiring vasopressors for support -+PPI 07/07 for GI prophylaxis -Sedation: 20 propofol, 40 fentanyl -Bilevel: PEEP high 27, PEEP low 8, pressure support 12, tve 390s-400s, I:E 1 :1.2, RR 24, FiO2 50% -Patient transitioned from prone to supine morning 07/07, tolerated this well -Precedex was trialed with patient 07/11, but due to his anxiety he could not tolerate this and coughed/tried to overbreathe the vent; was switched back to propofol/fentanyl -May continue to try to wean vent settings today, expect to hopefully extubate within next several days -CXR 07/08 revealed L-sided small/moderate pneumothorax -repeat CXR demonstrated expansion -L-sided chest tube inserted 07/08, no leaks appreciated -~70ml drainage overall; chest tube insertion site did not saturate overnight, bleeding has decreased -reduced lovenox to 40mg BID 07/11, skipped lovenox dose night of 07/10 -will continue to monitor anti-xa level -Patient has OG tube, replaced 07/07 due to mal-positioning; tube feeds started 07/07 afternoon, currently running @ 45ml/hr. -IVF D/C 07/08 -Simons in place, urine output approx 47ml/hr overnight -ID consulted and pt does not meet criteria for Remdesivir or Convalescent Plasma d/t prolonged course -s/p course of Abx (Rocephin and Azithromycin), Pulmonology consulted 07/06 and added Doxycycline as well as increased steroids to Solu-Medrol 80mg IV BID. -D-dimer up, CRP and Ferritin trending down #Bradycardia -pulse in 40s-50s while patient is asleep -asymptomatic -common during the course of COVID pna -will continue to monitor #Hiccups -Patient had hiccups prior to intubation -thorazine was scheduled and helping #Anxiety -prn Ativan and Atarax while awake -failed trial of precedex -ativan appears to be helpful when patient has anxiety exacerbations -will continue propofol as we continue to wean #DM2 -Mild SSI on board -Scheduled 10mg NPH BID + 2u regular insulin q6h -patient is on full tube feeds @ 45ml/hr -HgA1c: 6.5 -hold Metformin 500 mg PO while intubated #Travel to [place] -Quant Gold: Indeterminate, low suspicion for TB -Consider PPD as outpatient #Transaminitis, resolved -continued improvement -Hepatitis A antibody + -Hepatitis Panel wnl -suspect EtOH per hx #Thrombocytopenia -initial platelets 112>110, stable from yesterday -will continue to monitor #Anemia -H/H on venous lab stable from yesterday -H/H on ABG yesterday demonstrated no drop from the day before -patient's chest tube has had some bleeding around the insertion site and had 10ml drainage yesterday -abdomen soft -will continue to monitor #Constipation -patient has not had BM in several days -continue miralax per tube PCP: CC - None Code: Full Diet: tube feeds @ 45ml/hr-intubated VTE PPx: Lovenox BID GI PPx: Pantoprazole IVF: TKO Lines/Tubes: 2 peripheral, OG tube, L-sided chest tube Dispo: Patient is currently intubated/sedated for pulmonary fatigue related to Acute Hypoxic Respiratory Failure and Sepsis 2/2 COVID-19 Pneumonia. Hopeful for continued weaning and extubation over the next several days. Addendum - Attending - Attending Attestation Date/Time: 07/12/20 1720 I personally evaluated the patient and discussed the management with Dr. Arreola. I agree with the History, Examination, Assessment and Plan documented above with any addition or exceptions noted below. The patient's anxiety was not controlled on precedex. He is back on fentanyl and propofol. Weaning vent per pulmonology. Chest tube in place, bleeding around the tube has slowed. Continue supportive care.
[2020-07-12] MEDS: Fludrocortisone Acetate 0.1 MG TAB PER TUBE SCH (08:05)
[2020-07-12] MEDS: Pantoprazole 40 MG VIAL IVP SCH (08:05)
[2020-07-12] MEDS: Polyethylene Glycol 3350 17 GM Packet PER TUBE SCH (08:05)
[2020-07-12] MEDS: Enoxaparin Sodium 40 MG/0.4 ML SYRINGE SC SCH ×2 (08:05→19:41)
[2020-07-12 08:17] LABS: Actual Bicarbonate (HCO3a) 23.7 mEq/L (22-28); Base Excess (BEa) -0.2 mEq/L (-2.0 to +3.0); CO2 Tension 36.7 mmHg (35.0-45.0); Calcium, Ionized (arterial) 1.15 mmol/L (1.12-1.30); Carboxyhemoglobin (COHb) 0.7 gm% (0.0-3.0); Hemoglobin (Hb) 14.6 g/dL (14.0-18.0); Potassium - ABG Lab 4.55 mmol/L (3.70-5.30); pH, Arterial 7.43 (7.35-7.45)
[2020-07-12 08:26] LABS: O2 Tension (PaO2), arterial 50.5 mmHg (80.0-100.0)
[2020-07-12 08:27] LABS: Puncture Site RRA
[2020-07-12 08:28] LABS: ALV-art Gradient 260.125 (0-20)
[2020-07-12] MEDS ORDERED: Insulin Glargine 15 UNITS in Pre-Filled Syringe 1 EACH SC SCH (09:00)
--- NOTE | 2020-07-12 09:36 | RAD ---
AP CHEST: Date: 07/12/2020 HISTORY: Ventilator and CCU follow-up. COMPARISON: 07/11/2020. FINDINGS: ET tube and NG tube remain in place. Cardiomegaly with vascular congestion. Bilateral infiltrates con sistent with edema and/or inflammatory infiltrates. Small bilateral effusions. Subcutaneous emphysema has been previously described and appears slightly less pronounced. IMPRESSION: No acute change in the appearance of the infiltrates. POS: AGW
--- NOTE | 2020-07-12 11:20 | PRG ---
DATE OF SERVICE: 07/12/2020 TIME SPENT: 35 minutes of critical care time. SUBJECTIVE: The patient remains intubated on mechanical ventilation with COVID-19 pneumonia. PHYSICAL EXAMINATION: VITAL SIGNS: His temperature is 98.9, pulse 59, blood pressure 86/58, and O2 saturation 99%. Intake for 24 hours, 1384 and output . HEENT: Unremarkable except for being intubated. NECK: No JVD. LUNGS: Coarse breath sounds. He has chest tube on the left with no air leak. CARDIAC: S1 and S2. Regular. ABDOMEN: Soft and nontender. EXTREMITIES: No edema. LABORATORY DATA: ABG; pH 7.43, pCO2 of 36, pO2 of 50, that is on bilevel 27/8 with FiO2 of 50%. White blood cell count 12.6, hematocrit 42.4, and platelet count 110. D-dimer 0.8. Sodium 134, potassium 4.4, chloride 101, CO2 of 26, BUN 24, creatinine 0.6, and glucose 139. IMAGING DATA: Chest x-ray shows diffuse bilateral infiltrates. Chest tube on the left. Small subcutaneous air on the left. ASSESSMENT: 1. COVID-19 pneumonia with acute hypoxic respiratory failure requiring mechanical ventilation. 2. Left pneumothorax. PLAN: He is not weanable at the current time. We will continue therapy with BiPAP, steroids, and anticoagulation. He will probably need 1 to 2 more weeks on mechanical ventilation. Job ID: [id number]
[2020-07-12] MEDS: HumaLOG 300 UNITS/3 ML VIAL SC PRN ×2 (11:50→18:24)
[2020-07-12] MEDS: fentaNYL Citrate/PF 2,000 MCG in Sodium Chloride 0.9% 60 ML IV SCH (12:23)
--- NOTE | 2020-07-12 14:23 | EKG ---
Test Reason : Blood Pressure : / mmHG Vent. Rate : 107 BPM Atrial Rate : 107 BPM P-R Int : 122 ms QRS Dur : 082 ms QT Int : 338 ms P-R-T Axes : 021 -17 000 degrees QTc Int : 451 ms Sinus tachycardia Otherwise normal ECG Confirmed by BRITTANY DIEGO, SHAWANDA ([id number]), mapping editor GAEG SHELLEY ([id number]) on 07/12/2020 2:22:41 PM Referred By: Confirmed By:SHAWANDA SOTO MD
[2020-07-12] MEDS: Propofol 1,000 MG/100 ML VIAL IV PRN ×3 (14:28→23:57)
[2020-07-12 18:06] LABS: Base Excess (BEa) 2.9 mEq/L (-2.0 to +3.0); CO2 Tension 35.5 mmHg (35.0-45.0); Carboxyhemoglobin (COHb) 0.2 gm% (0.0-3.0); Hemoglobin (Hb) 14.6 g/dL (14.0-18.0); Potassium - ABG Lab 4.39 mmol/L (3.70-5.30); pH, Arterial 7.48 (7.35-7.45)
[2020-07-12 18:14] LABS: O2 Tension (PaO2), arterial 56.5 mmHg (80.0-100.0); Puncture Site RBA
[2020-07-12 18:16] LABS: ALV-art Gradient 255.625 (0-20)
--- NOTE | 2020-07-12 18:22 | RAD ---
Exam: Chest one view HISTORY:Crepitus. Comparison: 07/01/2020 FINDINGS: Cardiac silhouette: Normal Aorta: Unremarkable Pulmonary vessels: Normal Costophrenic angles: Clear LUNGS: Chronic lung parenchymal opacities are redemonstrated. Pneumothorax: No pneumothorax. There does appear to be subcutaneous emphysema tracking along the left chest wall and into the left and right lower neck. The sidehole of the chest tube appears to be in the left lung base. Lines and tubes: Stable left-sided chest tube, endotracheal tube and nasogastric tube. Osseous abnormalities: None IMPRESSION: 1. Stable lung parenchymal opacities. 2. Stable lines and tubes. 3. Redemonstration of subcutaneous emphysema in the lower left and right neck as well as the left axi lla. The sidehole of the left sided chest tube appears to be within the left hemithorax. Transcribed Date/Time: 07/12/2020 6:26 PM
[2020-07-13] MEDS: HumaLOG 300 UNITS/3 ML VIAL SC PRN ×2 (00:20→22:48)
[2020-07-13] MEDS: methylPREDNISolone Sod Succ 40 MG VIAL IVP SCH ×2 (02:09→13:50)
[2020-07-13] MEDS: Lorazepam 2 MG/ML VIAL SLOW IVP PRN ×5 (03:30→23:56)
[2020-07-13 04:18] LABS: #Eosinphils 0.1 thou/uL (0.0-0.7); #Lymphocytes 0.9 thou/uL (1.20-3.40); #Monocytes 0.3 thou/uL (0.11-0.59); #Neutrophils 7.3 thou/uL (1.40-6.50); %Basophils 0.5 % (0.0-1.0); %Eosinophils 0.8 % (0.0-10.0); %Lymphocytes 10.8 % (21.0-51.0); %Monocytes 3.3 % (0.0-10.0); %Neutrophils 84.6 % (42.0-75.0); Hemoglobin 11.4 g/dL (14.0-18.0); Mean Corpuscular HGB CONC 33.4 g/dL (32.0-36.0); Mean Corpuscular Hemoglobin 32.5 pg (27.0-31.0); Mean Corpuscular Volume 97.3 fL (78.0-98.0); Mean Platelet Volume 11.7 fL (7.4-10.4); Platelet Count 82 thou/uL (130-400); Platelet Morphology Comment Appears Decreased; RBC Distribution Width 12.3 % (11.5-14.5); Red Blood Cell (RBC) Count 3.52 mill/uL (4.70-6.10); White Blood Cell (WBC) Count 8.7 thou/uL (4.8-10.8)
--- NOTE | 2020-07-13 05:40 | PDOC.FM ---
- Subjective Subjective: Patient had increased anxiety and coughing yesterday, ativan appears to help with this per nursing. Patient resting comfortably during exam. - Objective Vital Signs & Weight: Vital Signs (12 hours) Temp Pulse Resp BP Pulse Ox 07/13/20 04:00 99.3 F 24 H 07/13/20 02:30 74 87/58 L 07/13/20 02:00 24 H 07/13/20 00:00 99.5 F 24 H 07/12/20 22:10 60 99/63 07/12/20 22:00 24 H 07/12/20 20:00 99.1 F 95 07/12/20 19:14 24 H 07/12/20 18:18 68 86/68 L 07/12/20 18:00 26 H Weight Admit Weight 81.193 kg Weight 81.2 kg Most Recent Monitor Data Heart Rate from ECG 65 NIBP 86/58 NIBP BP-Mean 67 Respiration from ECG 24 SpO2 95 I&O: 07/11/20 07/12/20 07/13/20 06:59 06:59 06:59 Intake Total 1652.6 1384 529 Output Total 1718 1140 1390 Balance -65.4 244 861 Result Diagrams: 07/13/20 03:30 07/12/20 03:30 Phys Exam - Physical Examination intubated and sedated HEENT: moist MMs Neck: supple intubated coarse breath sounds, scant wheezing upper lobes bilaterally Cardiovascular: RRR, no significant murmur Gastrointestinal: soft, no distention Musculoskeletal: no edema, pulses present sedated Skin: no rash Deviation from normal: chest tube insertion site c/d/i Dx/Plan (1) Sepsis Code(s): A41.9 - SEPSIS, UNSPECIFIED ORGANISM Status: Acute (2) Acute respiratory failure with hypoxia Code(s): J96.01 - ACUTE RESPIRATORY FAILURE WITH HYPOXIA Status: Acute (3) COVID-19 Code(s): U07.1 - COVID-19 Status: Acute (4) DM2 (diabetes mellitus, type 2) Status: Acute (5) Thrombocytopenia Code(s): D69.6 - THROMBOCYTOPENIA, UNSPECIFIED Status: Acute (6) PNA (pneumonia) Code(s): J18.9 - PNEUMONIA, UNSPECIFIED ORGANISM Status: Acute - Plan Plan: 54 y/o male who recently immigrated from [place] for medical treatment who presented with COVID-19 Pneumonia. #Acute Hypoxic Resp Failure and Sepsis 2/2 COVID PNA #Intubated/Sedated #Left pneumothorax, improved -Pt presented with 2wk hx of reported PNA, however worsened acutely before admission -IgG Covid points to prolonged infection, although course timing is abnormal for COVID -HFNC>BIPAP>intubated 07/06 due to respiratory fatigue, patient is prone -MAP 58-91 overnight, not requiring vasopressors for support -+PPI 07/07 for GI prophylaxis -Sedation: 20 propofol, 40 fentanyl -Bilevel: PEEP high 27, PEEP low 8, pressure support 12, tve 390s-400s, I:E 1 :1.2, RR 24, FiO2 50% -Patient transitioned from prone to supine morning 07/07, tolerated this well -Precedex was trialed with patient 07/11, but due to his anxiety he could not tolerate this and coughed/tried to overbreathe the vent; was switched back to propofol/fentanyl -Patient continues to have difficulty weaning off of the ventilator, sedation seems to help prevent him from coughing and overbreathing the vent -CXR 07/08 revealed L-sided small/moderate pneumothorax -repeat CXR demonstrated expansion -L-sided chest tube inserted 07/08, no leaks appreciated -chest tube insertion site requires dressing change approx 1x/day -reduced lovenox to 40mg BID 07/11, skipped lovenox dose night of 07/10 -anti-xa level 07/12 was 0.32, platelets 82 -Patient has OG tube, replaced 07/07 due to mal-positioning; tube feeds started 07/07 afternoon, currently running @ 45ml/hr. -IVF D/C 07/08 -Simons in place, urine output approx 47ml/hr overnight -ID consulted and pt does not meet criteria for Remdesivir or Convalescent Plasma d/t prolonged course -s/p course of Abx (Rocephin and Azithromycin), Pulmonology consulted 07/06 and added Doxycycline as well as increased steroids to Solu-Medrol 80mg IV BID. -D-dimer up, CRP and Ferritin trending down #Bradycardia -pulse in 40s-50s while patient is asleep -asymptomatic -common during the course of COVID pna -will continue to monitor #Hiccups -Patient had hiccups prior to intubation -thorazine was scheduled and helping #Anxiety -prn Ativan and Atarax while awake -failed trial of precedex -ativan appears to be helpful when patient has anxiety exacerbations -will continue propofol as we continue to wean #DM2 -Mild SSI on board -Increased insulin to 18u lantus qam -patient is on full tube feeds @ 45ml/hr -HgA1c: 6.5 -hold Metformin 500 mg PO while intubated #Travel to [place] -Quant Gold: Indeterminate, low suspicion for TB -Consider PPD as outpatient #Transaminitis, resolved -continued improvement -Hepatitis A antibody + -Hepatitis Panel wnl -suspect EtOH per hx #Thrombocytopenia -initial platelets 112>110>82 -will continue to monitor #Constipation -patient has not had BM in several days -continue miralax per tube PCP: [facility] - None Code: Full Diet: tube feeds @ 45ml/hr-intubated VTE PPx: Lovenox BID GI PPx: Pantoprazole IVF: TKO Lines/Tubes: 2 peripheral, OG tube, L-sided chest tube Dispo: Patient is currently intubated/sedated for pulmonary fatigue related to Acute Hypoxic Respiratory Failure and Sepsis 2/2 COVID-19 Pneumonia. Addendum - Attending - Attending Attestation Date/Time: 07/13/20 7225 I personally evaluated the patient and discussed the management with Dr. Arreola. I agree with the History, Examination, Assessment and Plan documented above with any addition or exceptions noted below. The patient had an episode of hypoxia yesterday, chest xr showed subcutaneous emphysema. Pt repositioned, new o2 probe palce and vitals improved. He continues to require sedation for coughing, anxiety. Vent mgmt per pulm. Pt remains on the lower dose of lovenox due to the bleeding that was surrounding the chest tube.
[2020-07-13 06:48] LABS: Actual Bicarbonate (HCO3a) 26.8 mEq/L (22-28); Base Excess (BEa) 2.5 mEq/L (-2.0 to +3.0); CO2 Tension 40.2 mmHg (35.0-45.0); Calcium, Ionized (arterial) 1.13 mmol/L (1.12-1.30); Carboxyhemoglobin (COHb) 0.3 gm% (0.0-3.0); Hemoglobin (Hb) 13.3 g/dL (14.0-18.0); O2 Tension (PaO2), arterial 69.4 mmHg (80.0-100.0); Potassium - ABG Lab 3.98 mmol/L (3.70-5.30); pH, Arterial 7.44 (7.35-7.45)
[2020-07-13 07:24] LABS: Puncture Site LRA
--- NOTE | 2020-07-13 08:00 | RAD ---
PORTABLE CHEST: HISTORY: Ventilator and CCU followup. COMPARISON: 07/12/20 FINDINGS: ET tube and NG tube unchanged. The left chest tube is unchanged. Bilateral lung infiltrates do not ap pear significantly changed. Subcutaneous emphysema again noted. No significant pneumothorax apparent. IMPRESSION: Stable chest findings. POS: AGW
[2020-07-13] MEDS ORDERED: Insulin Glargine 18 UNITS in Pre-Filled Syringe 1 EACH SC SCH (09:00)
[2020-07-13] MEDS: Fludrocortisone Acetate 0.1 MG TAB PER TUBE SCH (09:27)
[2020-07-13] MEDS: Pantoprazole 40 MG VIAL IVP SCH (09:27)
[2020-07-13] MEDS: Polyethylene Glycol 3350 17 GM Packet PER TUBE SCH (09:30)
[2020-07-13] MEDS: Enoxaparin Sodium 40 MG/0.4 ML SYRINGE SC SCH (09:35)
--- NOTE | 2020-07-13 10:02 | PRG ---
DATE OF SERVICE: 07/13/2020 SUBJECTIVE: The patient is about the same. No changes overnight. OBJECTIVE: GENERAL: On exam, he remains in supine position. VITAL SIGNS: Temperature is 99.3, pulse 67, blood pressure 91/59, O2 saturation 94%. CHEST: He has a left-sided chest tube with no air leak. HEENT: Remarkable for purulent secretions through his mouth. NECK: No adenopathy or JVD. LUNGS: Coarse breath sounds. CARDIAC: S1 and S2. Regular. ABDOMEN: Soft and nontender. EXTREMITIES: No edema. LABORATORY DATA: A pH 7.44, pCO2 of 40, pO2 of 69, on bilevel rate 24, FiO2 of 50%. Sodium 134, potassium 4.4, chloride 101, CO2 of 26, BUN 24, creatinine 0.6, and glucose 139. White blood cell count 8.7, hematocrit 24.3, and platelet count 82. ASSESSMENT: 1. COVID-19 pneumonia. 2. Left pneumothorax. PLAN: The patient is not weanable at this time. We will continue steroids, Florinef, tube feeds. I will go ahead and stop the doxycycline. We will hold Lovenox because of the thrombocytopenia. The 35 minutes critical care time. Job ID: [id number]
[2020-07-13] MEDS: Propofol 1,000 MG/100 ML VIAL IV PRN (19:27)
[2020-07-14] MEDS: methylPREDNISolone Sod Succ 40 MG VIAL IVP SCH ×2 (02:16→13:48)
[2020-07-14] MEDS: Lorazepam 2 MG/ML VIAL SLOW IVP PRN ×3 (03:33→12:36)
[2020-07-14] MEDS: Propofol 1,000 MG/100 ML VIAL IV PRN ×3 (03:42→18:31)
[2020-07-14 04:20] LABS: #Eosinphils 0.1 thou/uL (0.0-0.7); #Lymphocytes 0.9 thou/uL (1.20-3.40); #Monocytes 0.3 thou/uL (0.11-0.59); #Neutrophils 8.5 thou/uL (1.40-6.50); %Basophils 0.3 % (0.0-1.0); %Monocytes 2.9 % (0.0-10.0); %Neutrophils 86.8 % (42.0-75.0); Hemoglobin 12.5 g/dL (14.0-18.0); Mean Corpuscular HGB CONC 31.8 g/dL (32.0-36.0); Mean Corpuscular Hemoglobin 30.9 pg (27.0-31.0); Mean Corpuscular Volume 97.2 fL (78.0-98.0); Mean Platelet Volume 11.7 fL (7.4-10.4); Platelet Count 97 thou/uL (130-400); RBC Distribution Width 12.5 % (11.5-14.5); Red Blood Cell (RBC) Count 4.05 mill/uL (4.70-6.10); White Blood Cell (WBC) Count 9.8 thou/uL (4.8-10.8)
[2020-07-14 04:34] LABS: Anion Gap 10 mmol/L (10-20); BUN (Urea Nitrogen) 21 mg/dL (8.4-25.7); Calc. Creatinine Clearance 141 mL/min (70-130); Calcium 7.6 mg/dL (7.8-10.44); Carbon Dioxide 27 mmol/L (22-29); Chloride 101 mmol/L (98-107); Estimated GFR-MDRD Greater than 90; Glucose 188 mg/dL (70-105); Potassium 4.3 mmol/L (3.5-5.1); Sodium 134 mmol/L (136-145)
[2020-07-14] MEDS: HumaLOG 300 UNITS/3 ML VIAL SC PRN ×4 (06:22→20:42)
--- NOTE | 2020-07-14 06:22 | PDOC.FM ---
- Subjective Subjective: Patient remains intubated and sedated. No acute events overnight. - Objective Vital Signs & Weight: Vital Signs (12 hours) Temp Pulse Resp BP Pulse Ox 07/14/20 06:00 99.6 F 24 H 07/14/20 04:00 24 H 07/14/20 02:16 59 L 133/91 H 07/14/20 02:00 99.3 F 24 H 07/14/20 00:00 24 H 07/13/20 22:08 65 98/60 07/13/20 22:00 24 H 07/13/20 21:00 99.1 F 07/13/20 20:00 24 H 07/13/20 19:35 68 L Weight Admit Weight 81.193 kg Weight 81.1 kg Most Recent Monitor Data Heart Rate from ECG 62 NIBP 120/80 NIBP BP-Mean 93 Respiration from ECG 24 SpO2 100 I&O: 07/12/20 07/13/20 07/14/20 06:59 06:59 06:59 Intake Total 1384 1930 1783.5 Output Total 1140 1515 1510 Balance 244 415 273.5 Result Diagrams: 07/14/20 04:00 07/14/20 04:00 Phys Exam - Physical Examination intubated and sedated HEENT: moist MMs Neck: supple intubated, crepitus along lower neck bilaterally improved Respiratory: no wheezing coarse breath sounds throughout Cardiovascular: RRR, no significant murmur Gastrointestinal: soft, no distention Musculoskeletal: no edema sedated Skin: no rash, normal turgor Dx/Plan (1) Sepsis Code(s): A41.9 - SEPSIS, UNSPECIFIED ORGANISM Status: Acute (2) Acute respiratory failure with hypoxia Code(s): J96.01 - ACUTE RESPIRATORY FAILURE WITH HYPOXIA Status: Acute (3) COVID-19 Code(s): U07.1 - COVID-19 Status: Acute (4) DM2 (diabetes mellitus, type 2) Status: Acute (5) Thrombocytopenia Code(s): D69.6 - THROMBOCYTOPENIA, UNSPECIFIED Status: Acute (6) PNA (pneumonia) Code(s): J18.9 - PNEUMONIA, UNSPECIFIED ORGANISM Status: Acute - Plan Plan: 54 y/o male who recently immigrated from [place] for medical treatment who presented with COVID-19 Pneumonia. #Acute Hypoxic Resp Failure and Sepsis 2/2 COVID PNA #Intubated/Sedated #Left pneumothorax, improved -Pt presented with 2wk hx of reported PNA, however worsened acutely before admission -IgG Covid points to prolonged infection, although course timing is abnormal for COVID -HFNC>BIPAP>intubated 07/06 due to respiratory fatigue, patient is prone -MAP 69-105 overnight, not requiring vasopressors for support -+PPI 07/07 for GI prophylaxis -Sedation: 30 propofol -Bilevel transitioned to SIMV this morning, will monitor -SIMV: FiO2 50%, r 20-34 (spontaneous), peep 8, PSV 15 -Patient transitioned from prone to supine morning 07/07, tolerated this well -Precedex was trialed with patient 07/11, but due to his anxiety he could not tolerate this and coughed/tried to overbreathe the vent; was switched back to propofol/fentanyl, now on propofol only -CXR 07/08 revealed L-sided small/moderate pneumothorax -repeat CXR demonstrated expansion -L-sided chest tube inserted 07/08, no leaks appreciated -chest tube insertion site requires dressing change approx 1x/day -reduced lovenox to 40mg BID 07/11, skipped lovenox dose night of 07/10 -anti-xa level 07/12 was 0.32, platelets 82>97; lovenox held 07/13 2/ 2 platelets -Patient has OG tube, replaced 07/07 due to mal-positioning; tube feeds started 07/07 afternoon, currently running @ 45ml/hr. -IVF D/C 07/08 -Simons in place, urine output approx 35-200ml/hr overnight -ID consulted and pt does not meet criteria for Remdesivir or Convalescent Plasma d/t prolonged course -s/p course of Abx (Rocephin and Azithromycin), Pulmonology consulted 07/06 and added Doxycycline (D/C'd 07/13) as well as increased steroids to Solu-Medrol 80mg IV BID. -D-dimer up, CRP and Ferritin trending down #Bradycardia -pulse in 40s-50s while patient is asleep -asymptomatic -common during the course of COVID pna -will continue to monitor #Hiccups -Patient had hiccups prior to intubation -thorazine was scheduled and helping #Anxiety -prn Ativan and Atarax while awake -failed trial of precedex -ativan appears to be helpful when patient has anxiety exacerbations -will continue propofol as we continue to wean #DM2 -Mild SSI on board -Insulin 19u lantus qam -patient is on full tube feeds @ 45ml/hr -HgA1c: 6.5 -hold Metformin 500 mg PO while intubated #Travel to [place] -Quant Gold: Indeterminate, low suspicion for TB -Consider PPD as outpatient #Transaminitis, resolved -continued improvement -Hepatitis A antibody + -Hepatitis Panel wnl -suspect EtOH per hx #Thrombocytopenia -initial platelets 112>110>82>97 -will continue to monitor #Constipation -patient has not had BM in several days -continue miralax per tube PCP: CC - None Code: Full Diet: tube feeds @ 45ml/hr-intubated VTE PPx: Lovenox BID GI PPx: Pantoprazole IVF: TKO Lines/Tubes: 2 peripheral, OG tube, L-sided chest tube Dispo: Patient is currently intubated/sedated for pulmonary fatigue related to Acute Hypoxic Respiratory Failure and Sepsis 2/2 COVID-19 Pneumonia. Addendum - Attending - Attending Attestation Date/Time: 07/14/20 1972 I personally evaluated the patient and discussed the management with Dr. Arreola. I agree with the History, Examination, Assessment and Plan documented above with any addition or exceptions noted below. Patient was able to be swapped to simv this morning. Will see how pt tolerates this. Lovenox has been stopped. Trending labs. Chest tube in place. Continue supportive care.
[2020-07-14 06:35] LABS: Actual Bicarbonate (HCO3a) 26.1 mEq/L (22-28); Base Excess (BEa) 3.2 mEq/L (-2.0 to +3.0); CO2 Tension 34.1 mmHg (35.0-45.0); Calcium, Ionized (arterial) 1.11 mmol/L (1.12-1.30); Carboxyhemoglobin (COHb) 0.2 gm% (0.0-3.0); Hemoglobin (Hb) 13.8 g/dL (14.0-18.0); O2 Tension (PaO2), arterial 71.3 mmHg (80.0-100.0); Potassium - ABG Lab 4.34 mmol/L (3.70-5.30)
[2020-07-14 06:36] LABS: ALV-art Gradient 242.575 (0-20); Puncture Site LRA
[2020-07-14] MEDS: Pantoprazole 40 MG VIAL IVP SCH (07:27)
[2020-07-14] MEDS: Fludrocortisone Acetate 0.1 MG TAB PER TUBE SCH (07:27)
[2020-07-14] MEDS: Polyethylene Glycol 3350 17 GM Packet PER TUBE SCH (07:28)
--- NOTE | 2020-07-14 08:04 | RAD ---
CHEST 1 VIEW: HISTORY: Respiratory insufficiency. COMPARISON: 07/13/2020. FINDINGS: Left chest tube, NG tube, and endotracheal tubes remain in place. There is improving left-sided subc utaneous emphysematous. Patchy bilateral alveolar and ground-glass opacity changes throughout the ri ght lung and left lower lobes. No significnat new process. Slightly improving left-sided subcutaneous emphysema. Otherwise, stable chest. POS: OFF
--- NOTE | 2020-07-14 09:57 | PRG ---
DATE OF SERVICE: 07/14/2020 35 minutes of critical care time. SUBJECTIVE: The patient remains intubated on mechanical ventilation without much change overnight. OBJECTIVE: VITAL SIGNS: Temperature is 99.6, pulse 62, blood pressure 120/80, O2 saturation 98%. Intake 1783, output 1510. HEENT: Unchanged. NECK: No JVD. LUNGS: Coarse breath sounds. CARDIAC: S1 and S2 regular. ABDOMEN: Soft. EXTREMITIES: Edematous. IMAGING STUDIES: His chest x-ray shows bilateral infiltrates. He has a left-sided chest tube, has no air leak on pullback today. LABORATORY DATA: Sodium 134, potassium 4.3, chloride 101, CO2 of 27, BUN 21, creatinine 0.6, and glucose 188. White blood cell count 9.8, hematocrit 39.4, and platelet count 97. PH 7.50, pCO2 of 34, pO2 of 71 on bilevel rate 24 with 8 of PEEP, FiO2 of 50%. ASSESSMENT: 1. COVID-19 pneumonia. 2. Acute hypoxic respiratory failure requiring mechanical ventilation. 3. Left pneumothorax. PLAN: 1. I have changed him over to pressure control ventilation because of dyssynchrony with the ventilator. I will add some Geodon to see if that will facilitate cooperation. 2. Continue the steroids. 3. Continue enteral tube feeds. 4. I am going start him on Arixtra for anticoagulation. Job ID: [id number]
[2020-07-14] MEDS: Insulin Glargine 19 UNITS in Pre-Filled Syringe 1 EACH SC SCH ×2 (10:20→12:35)
[2020-07-14] MEDS: Ziprasidone 20 MG CAP PER TUBE SCH ×2 (10:20→20:20)
[2020-07-14] MEDS: Vecuronium 10 MG VIAL IVP PRN ×2 (14:10→20:20)
[2020-07-14] MEDS ORDERED: Fondaparinux Sodium 2.5 MG/0.5 ML SYRINGE SC SCH (18:00)
[2020-07-15] MEDS: Propofol 1,000 MG/100 ML VIAL IV PRN ×4 (00:23→19:46)
[2020-07-15] MEDS: methylPREDNISolone Sod Succ 40 MG VIAL IVP SCH ×2 (01:17→15:51)
[2020-07-15] MEDS: Vecuronium 10 MG VIAL IVP PRN ×5 (01:17→20:02)
[2020-07-15 03:44] LABS: ALT (SGPT) 50 U/L (8-55); AST (SGOT) 12 U/L (5-34); Albumin 2.6 g/dL (3.5-5.0); Alkaline Phosphatase 41 U/L (40-110); Anion Gap 12 mmol/L (10-20); BUN (Urea Nitrogen) 23 mg/dL (8.4-25.7); Bilirubin, Total 0.5 mg/dL (0.2-1.2); Calc. Creatinine Clearance 136 mL/min (70-130); Calcium 7.8 mg/dL (7.8-10.44); Carbon Dioxide 27 mmol/L (22-29); Chloride 103 mmol/L (98-107); Estimated GFR-MDRD Greater than 90; Globulin 2.8 g/dL (2.4-3.5); Glucose 194 mg/dL (70-105); Potassium 4.3 mmol/L (3.5-5.1); Protein, Total 5.4 g/dL (6.0-8.3); Sodium 138 mmol/L (136-145)
[2020-07-15 03:58] LABS: #Eosinphils 0.1 thou/uL (0.0-0.7); #Lymphocytes 0.5 thou/uL (1.20-3.40); #Monocytes 0.3 thou/uL (0.11-0.59); %Basophils 0.4 % (0.0-1.0); %Eosinophils 0.6 % (0.0-10.0); %Lymphocytes 4.9 % (21.0-51.0); %Monocytes 2.5 % (0.0-10.0); %Neutrophils 91.7 % (42.0-75.0); Hemoglobin 15.5 g/dL (14.0-18.0); Mean Platelet Volume 12.1 fL (7.4-10.4); Platelet Count 83 thou/uL (130-400); Platelet Morphology Comment Appears Decreased; RBC Distribution Width 12.7 % (11.5-14.5); Red Blood Cell (RBC) Count 4.83 mill/uL (4.70-6.10); White Blood Cell (WBC) Count 10.9 thou/uL (4.8-10.8)
[2020-07-15] MEDS: HumaLOG 300 UNITS/3 ML VIAL SC PRN ×4 (04:00→20:42)
--- NOTE | 2020-07-15 06:29 | PDOC.FM ---
- Subjective Subjective: No acute events overnight. Patient continues to have some dyssynchronous breathing. - Objective Vital Signs & Weight: Vital Signs (12 hours) Temp Pulse Resp BP Pulse Ox 07/15/20 06:00 24 H 07/15/20 04:00 97.7 F 24 H 07/15/20 02:23 66 97/69 07/15/20 02:00 24 H 07/15/20 00:00 97.5 F L 24 H 07/14/20 22:10 70 90/59 L 07/14/20 22:00 24 H 07/14/20 20:00 24 H 100 07/14/20 19:00 98.3 F Weight Admit Weight 81.193 kg Weight 80.4 kg Most Recent Monitor Data Heart Rate from ECG 65 NIBP 98/64 NIBP BP-Mean 75 Respiration from ECG 22 SpO2 94 I&O: 07/13/20 07/14/20 07/15/20 06:59 06:59 06:59 Intake Total 1930 1783.5 1608 Output Total 1515 1510 2975 Balance 415 273.5 -1367 Result Diagrams: 07/15/20 03:00 07/15/20 03:00 Phys Exam - Physical Examination intubated and sedated HEENT: moist MMs Neck: supple intubated coarse breath sounds throughout Cardiovascular: RRR, no significant murmur Gastrointestinal: soft, no distention Musculoskeletal: no edema, pulses present sedated Skin: no rash Dx/Plan (1) Sepsis Code(s): A41.9 - SEPSIS, UNSPECIFIED ORGANISM Status: Acute (2) Acute respiratory failure with hypoxia Code(s): J96.01 - ACUTE RESPIRATORY FAILURE WITH HYPOXIA Status: Acute (3) COVID-19 Code(s): U07.1 - COVID-19 Status: Acute (4) DM2 (diabetes mellitus, type 2) Status: Acute (5) Thrombocytopenia Code(s): D69.6 - THROMBOCYTOPENIA, UNSPECIFIED Status: Acute (6) PNA (pneumonia) Code(s): J18.9 - PNEUMONIA, UNSPECIFIED ORGANISM Status: Acute - Plan Plan: 54 y/o male who recently immigrated from [place] for medical treatment who presented with COVID-19 Pneumonia. #Acute Hypoxic Resp Failure and Sepsis 2/2 COVID PNA #Intubated/Sedated #Left pneumothorax, improved -Pt presented with 2wk hx of reported PNA, however worsened acutely before admission -IgG Covid points to prolonged infection, although course timing is abnormal for COVID -HFNC>BIPAP>intubated 07/06 due to respiratory fatigue, patient is prone -MAP 66-107 overnight, not requiring vasopressors for support -+PPI 07/07 for GI prophylaxis -Sedation: 30 propofol -Bilevel transitioned to SIMV this morning, will monitor -SIMV: FiO2 50%, r24, peep 7, PSV 20; continues to have dyssynchronous breathing -Patient transitioned from prone to supine morning 07/07, tolerated this well -Patient transitioned to propofol + geodon yesterday -CXR 07/08 revealed L-sided small/moderate pneumothorax -repeat CXR demonstrated expansion -L-sided chest tube inserted 07/08, no leaks appreciated -chest tube insertion site requires dressing change approx 1x/day -lovenox>fondaparinux on 07/14 due to platelets -Patient has OG tube, replaced 07/07 due to mal-positioning; tube feeds started 07/07 afternoon, currently running @ 35ml/hr. -IVF D/C 07/08 -Simons in place, urine output approx 50-275ml/hr overnight -ID consulted and pt does not meet criteria for Remdesivir or Convalescent Plasma d/t prolonged course -s/p course of Abx (Rocephin and Azithromycin), Pulmonology consulted 07/06 and added Doxycycline (D/C'd 07/13) as well as increased steroids to Solu-Medrol 80mg IV BID. -D-dimer up, CRP and Ferritin trending down #Bradycardia, improved -pulse in 50s-60ss while patient is asleep -asymptomatic -common during the course of COVID pna -will continue to monitor #Hiccups -Patient had hiccups prior to intubation -thorazine was scheduled and helping #Anxiety -prn Ativan, + geodon on 07/15 which appears to be helping -failed trial of precedex -ativan appears to be helpful when patient has anxiety exacerbations -will continue propofol as we continue to wean #DM2 -Mild SSI on board -Insulin 22u lantus qam -patient is on continuous tube feeds @ 35ml/hr -HgA1c: 6.5 -hold Metformin 500 mg PO while intubated #Travel to [place] -Quant Gold: Indeterminate, low suspicion for TB -Consider PPD as outpatient #Transaminitis, resolved -continued improvement -Hepatitis A antibody + -Hepatitis Panel wnl -suspect EtOH per hx #Thrombocytopenia -platelets 112>110>82>97>83 -will continue to monitor #Constipation -patient had BM 07/15 -continue miralax per tube PCP: [facility] - None Code: Full Diet: tube feeds @ 35ml/hr-intubated VTE PPx: Lovenox BID GI PPx: Pantoprazole IVF: TKO Lines/Tubes: 2 peripheral, OG tube, L-sided chest tube Dispo: Patient is currently intubated/sedated for pulmonary fatigue related to Acute Hypoxic Respiratory Failure and Sepsis 2/2 COVID-19 Pneumonia. Addendum - Attending - Attending Attestation Date/Time: 07/15/20 720 I personally evaluated the patient and discussed the management with Dr. Arreola. I agree with the History, Examination, Assessment and Plan documented above with any addition or exceptions noted below. Patient on arixtra for anticoagulation. Agitation seems improved with lydia. We have adjusted his insulin dose. Dr. Velasco has gone down on ventilatory support.
[2020-07-15 06:57] LABS: Actual Bicarbonate (HCO3a) 22.8 mEq/L (22-28); Base Excess (BEa) 2.9 mEq/L (-2.0 to +3.0); Calcium, Ionized (arterial) 1.08 mmol/L (1.12-1.30); Carboxyhemoglobin (COHb) 0.4 gm% (0.0-3.0); Hemoglobin (Hb) 14.2 g/dL (14.0-18.0); O2 Tension (PaO2), arterial 157.2 mmHg (80.0-100.0); Potassium - ABG Lab 4.33 mmol/L (3.70-5.30)
--- NOTE | 2020-07-15 07:42 | RAD ---
EXAM: Single view of the chest HISTORY: Ventilated patient with respiratory failure COMPARISON: 07/14/2020 FINDINGS: Single view of the chest shows a normal sized cardiomediastinal silhouette. The lines and tubes are unchanged in position. Scattered multifocal infiltrates are seen in the lungs. There is extensive subcutaneous air in the chest wall. No obvious pneumothorax is visualized although evaluati on is limited because of the subcutaneous air. No acute osseous abnormality. IMPRESSION: Stable exam
[2020-07-15 07:45] LABS: CO2 Tension 23.9 mmHg (35.0-45.0); Puncture Site LRA
[2020-07-15] MEDS: Polyethylene Glycol 3350 17 GM Packet PER TUBE SCH (07:45)
[2020-07-15 07:46] LABS: ALV-art Gradient 169.425 (0-20)
[2020-07-15] MEDS: Fludrocortisone Acetate 0.1 MG TAB PER TUBE SCH (08:09)
[2020-07-15] MEDS: Ziprasidone 20 MG CAP PER TUBE SCH ×2 (08:09→19:46)
[2020-07-15] MEDS: Pantoprazole 40 MG VIAL IVP SCH (08:09)
[2020-07-15] MEDS: Insulin Glargine 22 UNITS in Pre-Filled Syringe 1 EACH SC SCH (08:09)
[2020-07-15] MEDS ORDERED: methylPREDNISolone Sod Succ 40 MG VIAL IVP SCH (10:45)
--- NOTE | 2020-07-15 10:49 | PRG ---
DATE OF SERVICE: 07/15/2020 Thirty five minutes of critical care time. SUBJECTIVE: The patient remains intubated on mechanical ventilation. He is very sedated. OBJECTIVE: VITAL SIGNS: Temperature 98.5, pulse 84, blood pressure 95/51, O2 saturation 94%. 24-hour intake 1608, output 2975. HEENT: Unremarkable. NECK: No adenopathy or JVD. LUNGS: . No air leak, left chest tube. CARDIAC: S1 and S2, regular. ABDOMEN: Soft. EXTREMITIES: No edema. DIAGNOSTIC DATA: Chest x-ray shows bilateral infiltrates, perhaps some improvement from before. LABORATORY DATA: White blood cell count 10.9, hematocrit 46.9, and platelet count 83, D-dimer 1.27, pH of 7.6, pCO2 of 24, PO2 of 157 on SIMV rate 26 with a high pressure of 30, PEEP of 7, FiO2 of 50%. Sodium 138, potassium 4.3, chloride 103, CO2 of 27, BUN 23, creatinine 0.7, and glucose 194. X-ray shows no significant change. ASSESSMENT: 1. COVID-19 pneumonia. 2. Acute respiratory failure requiring mechanical ventilation. 3. Left pneumothorax. PLAN: 1. His oxygenation is better. I have gone down on his ventilatory rate. We will continue the for anticoagulation given that he has continued thrombocytopenia. 2. Continue the Geodon. 3. 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 4. I will go ahead and reduce the steroid dose. Job ID: [id number]
[2020-07-15] MEDS: Lorazepam 2 MG/ML VIAL SLOW IVP PRN ×3 (20:02→22:56)
[2020-07-16] MEDS: Lorazepam 2 MG/ML VIAL SLOW IVP PRN ×4 (00:48→22:53)
[2020-07-16] MEDS: Propofol 1,000 MG/100 ML VIAL IV PRN ×4 (00:50→18:37)
[2020-07-16] MEDS: methylPREDNISolone Sod Succ 40 MG VIAL IVP SCH ×2 (01:41→13:04)
[2020-07-16] MEDS: Pantoprazole 40 MG VIAL IVP SCH (07:30)
[2020-07-16] MEDS: Fludrocortisone Acetate 0.1 MG TAB PER TUBE SCH (07:30)
[2020-07-16] MEDS: Ziprasidone 20 MG CAP PER TUBE SCH ×2 (07:30→20:20)
[2020-07-16] MEDS: Polyethylene Glycol 3350 17 GM Packet PER TUBE SCH (07:30)
[2020-07-16] MEDS: Vecuronium 10 MG VIAL IVP PRN ×3 (08:00→22:53)
[2020-07-16 08:01] LABS: Anion Gap 12 mmol/L (10-20); BUN (Urea Nitrogen) 24 mg/dL (8.4-25.7); Calc. Creatinine Clearance 138 mL/min (70-130); Calcium 7.9 mg/dL (7.8-10.44); Carbon Dioxide 26 mmol/L (22-29); Chloride 103 mmol/L (98-107); Estimated GFR-MDRD Greater than 90; Glucose 270 mg/dL (70-105); Potassium 4.5 mmol/L (3.5-5.1); Sodium 136 mmol/L (136-145)
[2020-07-16 08:05] LABS: #Lymphocytes 0.5 thou/uL (1.20-3.40); #Monocytes 0.4 thou/uL (0.11-0.59); #Neutrophils 13.8 thou/uL (1.40-6.50); %Basophils 0.3 % (0.0-1.0); %Eosinophils 0.1 % (0.0-10.0); %Lymphocytes 3.5 % (21.0-51.0); %Monocytes 2.4 % (0.0-10.0); %Neutrophils 93.8 % (42.0-75.0); Hemoglobin 13.1 g/dL (14.0-18.0); Mean Corpuscular HGB CONC 32.1 g/dL (32.0-36.0); Mean Corpuscular Hemoglobin 31.7 pg (27.0-31.0); Mean Corpuscular Volume 98.7 fL (78.0-98.0); Mean Platelet Volume 11.4 fL (7.4-10.4); Platelet Count 124 thou/uL (130-400); Red Blood Cell (RBC) Count 4.13 mill/uL (4.70-6.10); White Blood Cell (WBC) Count 14.7 thou/uL (4.8-10.8)
[2020-07-16] MEDS: Insulin Glargine 22 UNITS in Pre-Filled Syringe 1 EACH SC SCH (09:33)
[2020-07-16 09:48] LABS: Actual Bicarbonate (HCO3a) 25.7 mEq/L (22-28); Base Excess (BEa) 2.7 mEq/L (-2.0 to +3.0); CO2 Tension 34.8 mmHg (35.0-45.0); Calcium, Ionized (arterial) 1.13 mmol/L (1.12-1.30); Carboxyhemoglobin (COHb) 0.1 gm% (0.0-3.0); Hemoglobin (Hb) 14.1 g/dL (14.0-18.0); Potassium - ABG Lab 4.48 mmol/L (3.70-5.30); pH, Arterial 7.49 (7.35-7.45)
--- NOTE | 2020-07-16 09:53 | PRG ---
DATE OF SERVICE: 07/16/2020 TIME SPENT: 35 minutes of critical time. SUBJECTIVE: This patient remains intubated on mechanical ventilation. He will wake up and nod and shake his head to questions. OBJECTIVE: VITAL SIGNS: His heart rate is 93, blood pressure is 120/75, O2 saturation is 97%, respiratory rate is 21, last measured temperature 99.4. HEENT: Unremarkable, except he is intubated. NECK: No JVD. LUNGS: Coarse breath sounds. CARDIAC: S1, S2. Regular. He has no air leak in his left chest tube. ABDOMEN: Soft. EXTREMITIES: No edema. LABORATORY DATA: PH of 7.48, pCO2 of 34, pO2 of 56, and that is on SIMV rate of 16, pressure of 22, PEEP of 7, FiO2 of 45%. Sodium 136, potassium 4.5, chloride 103, CO2 of 26, BUN 24, creatinine 0.7, glucose 270. CBC not available for review at this time. IMAGING STUDIES: X-ray cannot be reviewed at this time secondary to computer outage. ASSESSMENT: 1. COVID-19 pneumonia. 2. Acute respiratory failure requiring mechanical ventilation. 3. Left pneumothorax. PLAN: Not imminently weanable at this time. We are continuing supportive care with steroids, anticoagulation, and insulin. We will follow. Job ID: [id number]
[2020-07-16 09:55] LABS: O2 Tension (PaO2), arterial 56.3 mmHg (80.0-100.0); Puncture Site LRA
--- NOTE | 2020-07-16 10:02 | PDOC.FM ---
- Subjective Subjective: Patient reportedly required several doses of prn ativan and an increase of propofol overnight to help patient with his anxiety. He continues to be on SIMV pressure support. - Objective Vital Signs & Weight: Vital Signs (12 hours) Temp Pulse Resp BP 07/16/20 06:36 95 102/70 07/16/20 02:00 34 H 07/16/20 00:00 98.4 F 35 H Weight Admit Weight 81.193 kg Weight 80 kg Most Recent Monitor Data Heart Rate from ECG 88 NIBP 100/70 NIBP BP-Mean 80 Respiration from ECG 36 SpO2 98 I&O: 07/15/20 07/16/20 07/17/20 06:59 06:59 06:59 Intake Total 1608 784 Output Total 2975 1610 Balance -9677 -826 Result Diagrams: 07/16/20 04:00 07/16/20 03:30 Phys Exam - Physical Examination intubated and sedated HEENT: moist MMs ET tube in place Neck: supple crepitus appreciated, improved coarse breath sounds throughout Cardiovascular: RRR, no significant murmur Gastrointestinal: no distention Musculoskeletal: no edema, pulses present sedated Skin: no rash, normal turgor Dx/Plan (1) Sepsis Code(s): A41.9 - SEPSIS, UNSPECIFIED ORGANISM Status: Acute (2) Acute respiratory failure with hypoxia Code(s): J96.01 - ACUTE RESPIRATORY FAILURE WITH HYPOXIA Status: Acute (3) COVID-19 Code(s): U07.1 - COVID-19 Status: Acute (4) DM2 (diabetes mellitus, type 2) Status: Acute (5) Thrombocytopenia Code(s): D69.6 - THROMBOCYTOPENIA, UNSPECIFIED Status: Acute (6) PNA (pneumonia) Code(s): J18.9 - PNEUMONIA, UNSPECIFIED ORGANISM Status: Acute - Plan Plan: 54 y/o male who recently immigrated from [place] for medical treatment who presented with COVID-19 Pneumonia. #Acute Hypoxic Resp Failure and Sepsis 2/2 COVID PNA #Intubated/Sedated #Left pneumothorax, improved -Pt presented with 2wk hx of reported PNA, however worsened acutely before admission -IgG Covid points to prolonged infection, although course timing is abnormal for COVID -HFNC>BIPAP>intubated 07/06 due to respiratory fatigue, patient is prone -MAP 58-130 overnight, not requiring vasopressors for support -+PPI 07/07 for GI prophylaxis -Sedation: 35 propofol + 20 geodon BID -Bilevel transitioned to SIMV this morning, will monitor -SIMV: FiO2 45%, r16, peep 7, PSV 20; continues to have dyssynchronous breathing -Patient transitioned from prone to supine morning 07/07, tolerated this well -CXR 07/08 revealed L-sided small/moderate pneumothorax -repeat CXR demonstrated expansion -L-sided chest tube inserted 07/08, no leaks appreciated -chest tube insertion site requires dressing change approx 1x/day -lovenox>fondaparinux on 07/14 due to platelets -Patient has OG tube, replaced 07/07 due to mal-positioning; tube feeds started 07/07 afternoon, currently running @ 35ml/hr. -IVF D/C 07/08 -Simons in place, urine output approx 40-100ml/hr overnight -ID consulted and pt does not meet criteria for Remdesivir or Convalescent Plasma d/t prolonged course -s/p course of Abx (Rocephin and Azithromycin), Pulmonology consulted 07/06 and added Doxycycline (D/C'd 07/13) as well as increased steroids to Solu-Medrol 80mg IV BID (decreased to 40mg BID on 07/15). -D-dimer up, CRP and Ferritin trending down #Bradycardia, improved -pulse in 50s-60ss while patient is asleep -asymptomatic -common during the course of COVID pna -will continue to monitor #Hiccups -Patient had hiccups prior to intubation -thorazine was scheduled and helping #Anxiety -prn Ativan, + geodon on 07/15 which appears to be helping -failed trial of precedex -ativan appears to be helpful when patient has anxiety exacerbations -will continue propofol as we continue to wean #DM2 -Mild SSI on board -Insulin 22u lantus qam, will titrate up in am -patient is on continuous tube feeds @ 35ml/hr -HgA1c: 6.5 -hold Metformin 500 mg PO while intubated #Travel to [place] -Quant Gold: Indeterminate, low suspicion for TB -Consider PPD as outpatient #Transaminitis, resolved -continued improvement -Hepatitis A antibody + -Hepatitis Panel wnl -suspect EtOH per hx #Thrombocytopenia -platelets 112>110>82>97>83 -will continue to monitor #Constipation -patient had BM 07/15 -continue miralax per tube PCP: [facility] - None Code: Full Diet: tube feeds @ 35ml/hr-intubated VTE PPx: Lovenox BID GI PPx: Pantoprazole IVF: TKO Lines/Tubes: 2 peripheral, OG tube, L-sided chest tube Dispo: Patient is currently intubated/sedated for pulmonary fatigue related to Acute Hypoxic Respiratory Failure and Sepsis /2 COVID-19 Pneumonia. Addendum - Attending - Attending Attestation Date/Time: 07/16/20 [id number] I personally evaluated the patient and discussed the management with Dr. Arreola. I agree with the History, Examination, Assessment and Plan documented above with any addition or exceptions noted below. The patient remains anxious. Vent settings adjusted by pulm. WBC increase a little, will trend. Continue supportive care.
[2020-07-16] MEDS: HumaLOG 300 UNITS/3 ML VIAL SC PRN ×3 (10:30→20:40)
[2020-07-16] MEDS ORDERED: fentaNYL Citrate/PF 2,000 MCG in Sodium Chloride 0.9% 60 ML IV SCH (16:45)
[2020-07-16] MEDS ORDERED: Propofol BOLUS 1,000 MG/100 ML VIAL IV PRN (16:45)
[2020-07-16] MEDS ORDERED: Morphine 2 MG/ML VIAL SLOW IVP PRN (16:45)
[2020-07-16] MEDS ORDERED: DISCONTINUE PREVIOUS NARCOTIC PAIN MEDICATIONS AND BENZODIAZEPINES FS SCH (16:45)
[2020-07-16] MEDS ORDERED: Fentanyl BOLUS 250 ML IVPB PRN (16:45)
[2020-07-16] MEDS ORDERED: Propofol 1,000 MG/100 ML VIAL IV PRN (16:45)
[2020-07-17] MEDS: Lorazepam 2 MG/ML VIAL SLOW IVP PRN ×4 (00:06→05:42)
[2020-07-17] MEDS: Vecuronium 10 MG VIAL IVP PRN ×4 (00:06→05:42)
[2020-07-17] MEDS: methylPREDNISolone Sod Succ 40 MG VIAL IVP SCH ×2 (01:27→13:28)
[2020-07-17] MEDS: Propofol 1,000 MG/100 ML VIAL IV PRN ×3 (01:27→20:04)
[2020-07-17] MEDS: HumaLOG 300 UNITS/3 ML VIAL SC PRN ×4 (04:17→22:16)
[2020-07-17 04:47] LABS: #Lymphocytes 0.5 thou/uL (1.20-3.40); #Monocytes 0.2 thou/uL (0.11-0.59); #Neutrophils 9.2 thou/uL (1.40-6.50); %Eosinophils 0.5 % (0.0-10.0); %Lymphocytes 4.8 % (21.0-51.0); %Monocytes 2.2 % (0.0-10.0); %Neutrophils 92.5 % (42.0-75.0); Hemoglobin 13.3 g/dL (14.0-18.0); Large Platelets SLIGHT; MDiff Complete? YES; Mean Corpuscular HGB CONC 31.4 g/dL (32.0-36.0); Mean Corpuscular Hemoglobin 31.2 pg (27.0-31.0); Mean Corpuscular Volume 99.3 fL (78.0-98.0); Mean Platelet Volume 12.1 fL (7.4-10.4); Platelet Count 125 thou/uL (130-400); RBC Distribution Width 13.1 % (11.5-14.5); Red Blood Cell (RBC) Count 4.27 mill/uL (4.70-6.10); White Blood Cell (WBC) Count 9.9 thou/uL (4.8-10.8)
[2020-07-17 05:00] LABS: Anion Gap 12 mmol/L (10-20); BUN (Urea Nitrogen) 27 mg/dL (8.4-25.7); Calc. Creatinine Clearance 125 mL/min (70-130); Carbon Dioxide 28 mmol/L (22-29); Chloride 103 mmol/L (98-107); Estimated GFR-MDRD Greater than 90; Glucose 253 mg/dL (70-105); Potassium 4.7 mmol/L (3.5-5.1); Sodium 138 mmol/L (136-145)
--- NOTE | 2020-07-17 06:43 | PDOC.FM ---
- Subjective Subjective: Patient had difficulty with sedation overnight, required several doses of prn ativan. Continued to try to overbreathe the vent. - Objective Vital Signs & Weight: Vital Signs (12 hours) Temp Resp Pulse Ox 07/17/20 06:00 16 07/17/20 04:00 98.8 F 24 H 07/17/20 02:00 23 H 07/17/20 00:00 16 07/16/20 23:00 98.5 F 07/16/20 22:00 16 07/16/20 20:00 36 H 100 07/16/20 19:00 99.1 F Weight Admit Weight 81.193 kg Weight 79.8 kg Most Recent Monitor Data Heart Rate from ECG 69 NIBP 86/58 NIBP BP-Mean 67 Respiration from ECG 16 SpO2 100 I&O: 07/15/20 07/16/20 07/17/20 06:59 06:59 06:59 Intake Total 1729 684 3179 Output Total 3695 1610 1765 Balance -1367 -826 -236 Result Diagrams: 07/17/20 04:00 07/17/20 04:00 Phys Exam - Physical Examination intubated and sedated HEENT: moist MMs Neck: supple intubated, crepitus appreciated along chest/sides of lower neck coarse breath sounds throughout, chest tube on L Cardiovascular: RRR, no significant murmur Gastrointestinal: soft, no distention Musculoskeletal: no edema, pulses present sedated Skin: no rash, normal turgor Dx/Plan (1) Sepsis Code(s): A41.9 - SEPSIS, UNSPECIFIED ORGANISM Status: Acute (2) Acute respiratory failure with hypoxia Code(s): J96.01 - ACUTE RESPIRATORY FAILURE WITH HYPOXIA Status: Acute (3) COVID-19 Code(s): U07.1 - COVID-19 Status: Acute (4) DM2 (diabetes mellitus, type 2) Status: Acute (5) Thrombocytopenia Code(s): D69.6 - THROMBOCYTOPENIA, UNSPECIFIED Status: Acute (6) PNA (pneumonia) Code(s): J18.9 - PNEUMONIA, UNSPECIFIED ORGANISM Status: Acute - Plan Plan: 54 y/o male who recently immigrated from [place] for medical treatment who presented with COVID-19 Pneumonia. #Acute Hypoxic Resp Failure and Sepsis 2/2 COVID PNA #Intubated/Sedated #Left pneumothorax, improved -Pt presented with 2wk hx of reported PNA, however worsened acutely before admission -IgG Covid points to prolonged infection, although course timing is abnormal for COVID -HFNC>BIPAP>intubated 07/06 due to respiratory fatigue, patient is prone -MAP 58-109 overnight, not requiring vasopressors for support -+PPI 07/07 for GI prophylaxis -Sedation: 25 propofol + 20 geodon BID, adding fentanyl patch and precedex 07/17 -SIMV: -FiO2 40%, r16, peep 7, PSV 16; weaned Fi)2 and PSV this am -Patient transitioned from prone to supine morning 07/07, tolerated this well -CXR 07/08 revealed L-sided small/moderate pneumothorax -repeat CXR demonstrated expansion -L-sided chest tube inserted 07/08, no leaks appreciated -chest tube insertion site not saturating -lovenox>fondaparinux on 07/14 due to platelets -Patient has OG tube, replaced 07/07 due to mal-positioning; tube feeds started 07/07 afternoon, currently running @ 35ml/hr. -IVF D/C 07/08 -Simons in place, urine output approx 30-125ml/hr overnight -ID consulted and pt does not meet criteria for Remdesivir or Convalescent Plasma d/t prolonged course -s/p course of Abx (Rocephin and Azithromycin), Pulmonology consulted 07/06 and added Doxycycline (D/C'd 07/13) as well as increased steroids to Solu-Medrol 80mg IV BID (decreased to 40mg BID on 07/15). -D-dimer trending down #Bradycardia, improved -pulse in 60s while patient is asleep -asymptomatic -common during the course of COVID pna -will continue to monitor #Hiccups -Patient had hiccups prior to intubation -thorazine was scheduled and helping #Anxiety -prn Ativan, + geodon on 07/15 + fentanyl patch + precedex -ativan appears to be helpful when patient has anxiety exacerbations -will continue propofol as we continue to wean #DM2 -Mild SSI on board -Insulin 24u lantus qam, will titrate up in am -patient is on continuous tube feeds @ 35ml/hr -HgA1c: 6.5 -hold Metformin 500 mg PO while intubated #Travel to [place] -Quant Gold: Indeterminate, low suspicion for TB -Consider PPD as outpatient #Transaminitis, resolved -continued improvement -Hepatitis A antibody + -Hepatitis Panel wnl -suspect EtOH per hx #Thrombocytopenia -platelets 112>110>82>97>83>125 -will continue to monitor #Constipation -patient had BM 07/15 -continue miralax per tube PCP: [facility] - None Code: Full Diet: tube feeds @ 35ml/hr-intubated VTE PPx: Lovenox BID GI PPx: Pantoprazole IVF: TKO Lines/Tubes: 2 peripheral, OG tube, L-sided chest tube Dispo: Patient is currently intubated/sedated for pulmonary fatigue related to Acute Hypoxic Respiratory Failure and Sepsis 2/2 COVID-19 Pneumonia. Addendum - Attending - Attending Attestation Date/Time: 07/17/20 1300 I personally evaluated the patient and discussed the management with Dr. Arreola. I agree with the History, Examination, Assessment and Plan documented above with any addition or exceptions noted below. Fentanyl patch ordered for pt. Precedex is being tried again to help control agitation. We are adjusting insulin. Chest tube output minimal. Vent mgmt per pulm.
[2020-07-17 08:22] LABS: Actual Bicarbonate (HCO3a) 25.7 mEq/L (22-28); Base Excess (BEa) 0.1 mEq/L (-2.0 to +3.0); CO2 Tension 45.3 mmHg (35.0-45.0); Calcium, Ionized (arterial) 1.15 mmol/L (1.12-1.30); Carboxyhemoglobin (COHb) 0.4 gm% (0.0-3.0); O2 Tension (PaO2), arterial 120.9 mmHg (80.0-100.0); Potassium - ABG Lab 4.58 mmol/L (3.70-5.30); pH, Arterial 7.37 (7.35-7.45)
[2020-07-17 08:24] LABS: Puncture Site RB
[2020-07-17 08:25] LABS: ALV-art Gradient 143.325 mmHg (0-20)
[2020-07-17] MEDS: Polyethylene Glycol 3350 17 GM Packet PER TUBE SCH (08:28)
[2020-07-17] MEDS: Ziprasidone 20 MG CAP PER TUBE SCH ×2 (08:28→20:04)
[2020-07-17] MEDS: Fludrocortisone Acetate 0.1 MG TAB PER TUBE SCH (08:28)
[2020-07-17] MEDS: Pantoprazole 40 MG VIAL IVP SCH (08:29)
[2020-07-17] MEDS ORDERED: Insulin Glargine 26 UNITS in Pre-Filled Syringe 1 EACH SC SCH (09:00)
[2020-07-17] MEDS ORDERED: Insulin Glargine 24 UNITS in Pre-Filled Syringe 1 EACH SC SCH (09:00)
--- NOTE | 2020-07-17 09:22 | PRG ---
DATE OF SERVICE: 07/17/2020 35 minutes critical care time. SUBJECTIVE: The patient remains intubated on mechanical ventilation. He has been very difficult to sedate overnight. OBJECTIVE: VITAL SIGNS: Temperature 98.8 with no fever overnight, pulse 66, blood pressure 83/59, O2 saturation 100%. 24-hour intake 1529, output 1765. HEENT: Unremarkable. NECK: No adenopathy or JVD. LUNGS: Coarse breath sounds. He has chest tube on the left. No air leak. CARDIAC: S1 and S2. Regular. ABDOMEN: Soft. EXTREMITIES: No edema. LABORATORY DATA: White blood cell count 9.9, hematocrit 42.4, and platelet count 125. D-dimer 0.76. pH of 7.37, pCO2 of 45, pO2 of 120 on pressure control ventilation, rate of 16, high pressure of 22, FiO2 of 45%. Sodium 138, potassium 4.7, chloride 103, CO2 of 28, BUN 27, creatinine 0.7, and glucose 253. DIAGNOSTIC DATA: Chest x-ray shows no change. ASSESSMENT: 1. COVID-19 pneumonia. 2. Acute respiratory failure requiring mechanical ventilation. 3. Left pneumothorax. 4. Difficult to sedate. PLAN: 1. Start Precedex drip. 2. Add fentanyl patch in hopes of weaning off the fentanyl drip. 3. Begin to wean FiO2 because he is getting better. 4. Continue enteral tube feeds. 5. Continue anticoagulation with Arixtra. Job ID: [id number]
[2020-07-17] MEDS: fentaNYL 75 mcg/hour Patch TD SCH (10:35)
[2020-07-18] MEDS: methylPREDNISolone Sod Succ 40 MG VIAL IVP SCH ×2 (01:05→21:00)
[2020-07-18] MEDS: Lorazepam 2 MG/ML VIAL SLOW IVP PRN ×3 (01:39→21:25)
[2020-07-18 04:53] LABS: #Eosinphils 0.1 thou/uL (0.0-0.7); #Lymphocytes 0.6 thou/uL (1.20-3.40); #Monocytes 0.3 thou/uL (0.11-0.59); #Neutrophils 8.3 thou/uL (1.40-6.50); %Basophils 0.1 % (0.0-1.0); %Eosinophils 1.6 % (0.0-10.0); %Monocytes 3.1 % (0.0-10.0); %Neutrophils 89.3 % (42.0-75.0); Hemoglobin 12.8 g/dL (14.0-18.0); Mean Corpuscular HGB CONC 31.6 g/dL (32.0-36.0); Mean Corpuscular Hemoglobin 31.2 pg (27.0-31.0); Mean Corpuscular Volume 98.8 fL (78.0-98.0); Mean Platelet Volume 11.6 fL (7.4-10.4); Platelet Count 122 thou/uL (130-400); Red Blood Cell (RBC) Count 4.08 mill/uL (4.70-6.10); White Blood Cell (WBC) Count 9.3 thou/uL (4.8-10.8)
[2020-07-18 05:23] LABS: Anion Gap 12 mmol/L (10-20); BUN (Urea Nitrogen) 27 mg/dL (8.4-25.7); Calc. Creatinine Clearance 138 mL/min (70-130); Carbon Dioxide 28 mmol/L (22-29); Chloride 104 mmol/L (98-107); Estimated GFR-MDRD Greater than 90; Glucose 156 mg/dL (70-105); Potassium 4.1 mmol/L (3.5-5.1); Sodium 140 mmol/L (136-145)
[2020-07-18] MEDS: Propofol 1,000 MG/100 ML VIAL IV PRN ×2 (05:42→17:08)
--- NOTE | 2020-07-18 06:28 | PDOC.FM ---
- Subjective Subjective: No acute events overnight. Patient required less prn ativan overnight. Transitioned to CPAP this morning, doing well. - Objective Vital Signs & Weight: Vital Signs (12 hours) Temp Resp Pulse Ox 07/18/20 06:00 34 H 07/18/20 04:00 98.0 F 28 H 07/18/20 02:00 27 H 07/18/20 00:00 98.2 F 25 H 07/17/20 22:00 25 H 07/17/20 20:00 98.6 F 40 H 100 Weight Admit Weight 81.193 kg Weight 77.9 kg Most Recent Monitor Data Heart Rate from ECG 75 NIBP 120/81 NIBP BP-Mean 94 Respiration from ECG 22 SpO2 100 I&O: 07/16/20 07/17/20 07/18/20 06:59 06:59 06:59 Intake Total 784 1529 1052.5 Output Total 1610 1765 1860 Balance -826 -236 -807.5 Result Diagrams: 07/19/20 04:02 07/19/20 04:02 Phys Exam - Physical Examination Constitutional: NAD intubated HEENT: PERRLA, moist MMs, sclera anicteric intubated Neck: supple crepitus appreciated along neck, improved coarse breath sounds; L chest tube in place, water seal Cardiovascular: RRR, no significant murmur Gastrointestinal: soft, non-tender, no distention Musculoskeletal: no edema, pulses present Neurological: moves all 4 limbs follows commands, nods to answer questions Skin: no rash Dx/Plan (1) Sepsis Code(s): A41.9 - SEPSIS, UNSPECIFIED ORGANISM Status: Acute (2) Acute respiratory failure with hypoxia Code(s): J96.01 - ACUTE RESPIRATORY FAILURE WITH HYPOXIA Status: Acute (3) COVID-19 Code(s): U07.1 - COVID-19 Status: Acute (4) DM2 (diabetes mellitus, type 2) Status: Chronic (5) Thrombocytopenia Code(s): D69.6 - THROMBOCYTOPENIA, UNSPECIFIED Status: Acute (6) PNA (pneumonia) Code(s): J18.9 - PNEUMONIA, UNSPECIFIED ORGANISM Status: Acute - Plan Plan: 54 y/o male who recently immigrated from [place] for medical treatment who presented with COVID-19 Pneumonia. #Acute Hypoxic Resp Failure and Sepsis 2/2 COVID PNA #Intubated/Sedated #Left pneumothorax, improved -Pt presented with 2wk hx of reported PNA, however worsened acutely before admission -IgG Covid points to prolonged infection, although course timing is abnormal for COVID -today is day #21 since testing positive for COVID on 06/28 -off of isolation -HFNC>BIPAP>intubated 07/06 due to respiratory fatigue, patient is prone -MAP 67-101 overnight, not requiring vasopressors for support -+PPI 07/07 for GI prophylaxis -Sedation: 9.4 propofol + 20 geodon BID, fentanyl patch, precedex @ 7.8 -did not require as much prn ativan overnight for agitation -SIMV transitioned to CPAP morning of 07/18: -appears to be tolerating this well -Patient transitioned from prone to supine morning 07/07, tolerated this well -CXR 07/08 revealed L-sided small/moderate pneumothorax -repeat CXR demonstrated expansion -L-sided chest tube inserted 07/08, no leaks appreciated -chest tube insertion site not saturating -lovenox>fondaparinux on 07/14 due to platelets -Patient has OG tube, replaced 07/07 due to mal-positioning; tube feeds started 07/07 afternoon, currently running @ 35ml/hr. -IVF D/C 07/08 -Simons in place, urine output approx 55-125ml/hr overnight -ID consulted and pt does not meet criteria for Remdesivir or Convalescent Plasma d/t prolonged course -s/p course of Abx (Rocephin and Azithromycin), Pulmonology consulted 07/06 and added Doxycycline (D/C'd 07/13) as well as increased steroids to Solu-Medrol 80mg IV BID (decreased to 40mg BID on 07/15, decreased to 20mg BID on 07/18). -D-dimer trending down #Bradycardia, improved -pulse in 40s-60s while patient is asleep -asymptomatic -common during the course of COVID pna -will continue to monitor #Hiccups -Patient had hiccups prior to intubation -thorazine was scheduled and helping #Anxiety -prn Ativan, + geodon on 07/15 + fentanyl patch + precedex -ativan appears to be helpful when patient has anxiety exacerbations -will continue propofol as we continue to wean #DM2 -Mild SSI on board -Insulin 27u lantus qam, will titrate up in am -patient is on continuous tube feeds @ 35ml/hr -HgA1c: 6.5 -hold Metformin 500 mg PO while intubated #Travel to [place] -Quant Gold: Indeterminate, low suspicion for TB -Consider PPD as outpatient #Transaminitis, resolved -continued improvement -Hepatitis A antibody + -Hepatitis Panel wnl -suspect EtOH per hx #Thrombocytopenia -platelets stable 120s -will continue to monitor #Constipation -patient had BM 07/15 -continue miralax per tube PCP: [facility] - None Code: Full Diet: tube feeds @ 35ml/hr-intubated VTE PPx: fondaparinux GI PPx: Pantoprazole IVF: TKO Lines/Tubes: 2 peripheral, OG tube, L-sided chest tube Dispo: Patient is currently intubated/sedated for pulmonary fatigue related to Acute Hypoxic Respiratory Failure and Sepsis 2/2 COVID-19 Pneumonia. Addendum - Attending - Attending Attestation Date/Time: 07/18/20 [id number] I personally evaluated the patient and discussed the management with Dr. Arreola. I agree with the History, Examination, Assessment and Plan documented above with any addition or exceptions noted below. The patient is on a cpap trial currently. He is awake and follows commands. Isolation precautions have been d/c'd. Hopefully his is able to come to visit now. Dr. Arreola will update her. He is improving. Adjusting insulin.
[2020-07-18 08:11] LABS: Actual Bicarbonate (HCO3a) 25.1 mEq/L (22-28); Base Excess (BEa) 1.8 mEq/L (-2.0 to +3.0); CO2 Tension 35.4 mmHg (35.0-45.0); Calcium, Ionized (arterial) 1.14 mmol/L (1.12-1.30); Carboxyhemoglobin (COHb) 0.7 gm% (0.0-3.0); Hemoglobin (Hb) 14.4 g/dL (14.0-18.0); O2 Tension (PaO2), arterial 71.1 mmHg (80.0-100.0); Potassium - ABG Lab 4.34 mmol/L (3.70-5.30); pH, Arterial 7.47 (7.35-7.45)
[2020-07-18 08:38] LABS: Puncture Site LR
[2020-07-18] MEDS: Fludrocortisone Acetate 0.1 MG TAB PER TUBE SCH (09:34)
[2020-07-18] MEDS: Pantoprazole 40 MG VIAL IVP SCH (09:34)
[2020-07-18] MEDS: Insulin Glargine 27 UNITS in Pre-Filled Syringe 1 EACH SC SCH (09:34)
[2020-07-18] MEDS: Polyethylene Glycol 3350 17 GM Packet PER TUBE SCH (09:34)
[2020-07-18] MEDS: Ziprasidone 20 MG CAP PER TUBE SCH ×2 (09:34→21:00)
[2020-07-18] MEDS: HumaLOG 300 UNITS/3 ML VIAL SC PRN (09:35)
--- NOTE | 2020-07-18 09:38 | PRG ---
DATE OF SERVICE: 07/18/2020 TIME SPENT: 35 minutes of critical care time. SUBJECTIVE: Today is hospital day 21, so the patient can come out of COVID isolation. He is more awake and alert, and I have seen him since I have been rounding on him for Dr. Robbins. OBJECTIVE: VITAL SIGNS: On exam, his temperature is 98, pulse 80, blood pressure 135/92, and O2 saturation 100%. 24-hour intake 1052, output 1860. HEENT: Unremarkable. NECK: No JVD. LUNGS: Clear anteriorly. CARDIAC: S1, S2. Regular. ABDOMEN: Soft. EXTREMITIES: No edema. CHEST: His chest tube shows no air leak. LABORATORY DATA: White blood cell count 9.3, hematocrit 40, and platelet count 122. D-dimer 0.7. PH of 7.47, pCO2 of 35, PO2 of 71 on pressure control ventilation with a rate of 16, FiO2 of 40% and a PEEP of 7. Sodium 140, potassium 4.1, chloride 104, CO2 of 28, BUN 27, creatinine 0.6, and glucose 156. ASSESSMENT: 1. COVID-19 pneumonia. 2. Left pneumothorax with no air leak. 3. Acute respiratory failure requiring mechanical ventilation. PLAN: This gentleman looks better. He can come out of isolation today. I am going to start him on spontaneous breathing trial to see how long he can tolerate. He may be a candidate for extubation this weekend to high-flow oxygen. I will put his chest tube on water seal in anticipation that being pulled out soon. He is on Arixtra for DVT prophylaxis because he became thrombocytopenic on Lovenox. Overall, I think this gentleman will be able to come off the vent without tracheostomy. Job ID: [id number]
--- NOTE | 2020-07-18 10:17 | PDOC.BPN ---
- Brief Progress Note Encounter Date: 07/18/20 This is a transition of care note for Leonel Reynoso from the dates of 07/07/20- 07/18/20. The patient had been intubated the day prior to when I assumed care due to respiratory fatigue. Was was placed in prone position and was transitioned to supine the morning of 07/07. His ventilator was set at Bi-level. This has been gradually weaned throughout the last two weeks to SIMV, and he was weaned to CPAP this morning. We are hopeful to continue weaning and for hopeful extubation in the near future. On 07/08 there was subcutaneous crepitus felt along his chest and neck. CXR demonstrated pneumomediastinum and L-pneumothorax. Dr. Pham was consulted and placed a L-sided chest tube. The chest tube has had minimal drainage and was placed on water seal this morning. The more recent CXR's have demonstrated improvement of the pneumothorax and pneumomediastinum. The patient has had difficulty with anxiety throughout his hospitalization, even before intubation. After he was intubated, he was sedated with propofol and fentanyl during the course of his illness but would awaken and follow commands. He had tried sedation with precedex several days ago but the patient became agitated and was transitioned back to propofol. At this time he has a propofol gtt, precedex gtt, fentanyl patch, and geodon for agitation, and this regimen was successful overnight without the patient requiring much prn ativan. Feeding via his og tube was initiated on 07/07 to provide nutrition, fluids were discontinued on 07/08, and pantoprazole was started for GI ppx on 07/07. For COVID PNA: The patient was on doxycycline from 07/06-07/13. His steroids were increased on 07/06 to solumedrol 80mg IV BID, which were subsequently decreased to 40mg BID on 07/15 and 20mg BID on 07/18. He was on therapeutic lovenox BID, but this was transitioned to fondaparinux on 07/14 due to the patient's platelets being <100. The patient's has been updated often about the patient's course of illness.
[2020-07-19] MEDS: Propofol 1,000 MG/100 ML VIAL IV PRN ×2 (02:13→14:02)
[2020-07-19] MEDS: Lorazepam 2 MG/ML VIAL SLOW IVP PRN ×3 (02:14→21:39)
[2020-07-19] MEDS: HumaLOG 300 UNITS/3 ML VIAL SC PRN ×3 (04:01→21:58)
--- NOTE | 2020-07-19 05:17 | PDOC.FM ---
- Subjective Subjective: Patient continues to feel anxious, did require ativan yesterday and today. His pulse becomes low at night, so it has been difficult to control his anxiety with precedex. Patient is alert this morning, reports feeling cold. NAEO. - Objective Vital Signs & Weight: Vital Signs (12 hours) Temp Resp Pulse Ox 07/19/20 04:00 98.1 F 29 H 07/19/20 02:00 38 H 07/19/20 00:00 98.0 F 22 H 07/18/20 22:00 33 H 07/18/20 20:00 98.5 F 20 98 07/18/20 18:00 35 H Weight Admit Weight 81.193 kg Weight 77.9 kg Most Recent Monitor Data Heart Rate from ECG 67 NIBP 133/88 NIBP BP-Mean 103 Respiration from ECG 33 SpO2 100 I&O: 07/17/20 07/18/20 07/19/20 06:59 06:59 06:59 Intake Total 1529 1052.5 974.8 Output Total 1765 1860 2195 Balance -236 -807.5 -1220.2 Result Diagrams: 07/19/20 04:02 07/19/20 04:02 Phys Exam - Physical Examination Constitutional: NAD Respiratory: no wheezing, clear to auscultation bilateral Cardiovascular: RRR, no significant murmur Gastrointestinal: soft, non-tender Musculoskeletal: no edema, pulses present Neurological: non-focal, moves all 4 limbs Psychiatric: normal affect Skin: cap refill <2 seconds Dx/Plan (1) Acute respiratory failure with hypoxia Code(s): J96.01 - ACUTE RESPIRATORY FAILURE WITH HYPOXIA Status: Acute (2) COVID-19 Code(s): U07.1 - COVID-19 Status: Acute (3) DM2 (diabetes mellitus, type 2) Status: Chronic (4) Thrombocytopenia Code(s): D69.6 - THROMBOCYTOPENIA, UNSPECIFIED Status: Acute (5) PNA (pneumonia) Code(s): J18.9 - PNEUMONIA, UNSPECIFIED ORGANISM Status: Acute - Plan Plan: 54 y/o male who recently immigrated from [place] for medical treatment who presented with COVID-19 Pneumonia. #Acute Hypoxic Resp Failure and Sepsis 2/2 COVID PNA #Intubated/Sedated -Pt presented with 2wk hx of reported PNA, however worsened acutely before admission -IgG Covid points to prolonged infection, although course timing is abnormal for COVID -Came off isolation 07/18 (tested positive for COVID on 06/28) -HFNC>BIPAP>intubated 07/06 due to respiratory fatigue, pronated -> supine 07/07 -Sedation: prn Ativan, geodon on 07/15, fentanyl patch, precedex -ID consulted and pt does not meet criteria for Remdesivir or Convalescent Plasma d/t prolonged course -s/p course of Abx (Rocephin and Azithromycin), Pulmonology consulted 07/06 and added Doxycycline (D/C'd 07/13) as well as increased steroids to Solu-Medrol 80mg IV BID (decreased to 40mg BID on 07/15, decreased to 20mg BID on 07/18). -D-dimer was trending down, uptrended today to .85 from .72 -Did well on CPAP trial yesterday, patient will likely do well when he comes off the ventilator. Pneumomediastinum/pneumo -CXR 07/08 revealed L-sided small/moderate pneumothorax -repeat CXR demonstrated expansion -L-sided chest tube inserted 07/08, no leaks appreciated -Now on water seal -Repeat CXR today pending #Anxiety and agitation -prn Ativan, geodon on 07/15, fentanyl patch, precedex -will continue propofol as we continue to wean #DM2 -Mild SSI on board -Insulin 27u lantus qam, continue on this regimen as has only needed 4 units humalog in the last day -patient is on continuous tube feeds @ 35ml/hr -HgA1c: 6.5 -hold Metformin 500 mg PO while intubated #Travel to [place] -Quant Gold: Indeterminate, low suspicion for TB -Consider PPD as outpatient #Transaminitis, resolved -continued improvement -Hepatitis A antibody + -Hepatitis Panel wnl -suspect EtOH per hx #Thrombocytopenia -anticoagulation transitioned to fondaparinux as platelets <100 -platelets stable 120s -will continue to monitor #Constipation -patient had BM 07/15 -continue miralax per tube PCP: [facility] - None Code: Full Diet: OG tube feeds @ 35ml/hr-intubated VTE PPx: fondaparinux GI PPx: Pantoprazole IVF: TKO Lines/Tubes: 2 peripheral, OG tube, L-sided chest tube, benítez Dispo: Patient is currently intubated/sedated for pulmonary fatigue related to Acute Hypoxic Respiratory Failure and Sepsis 2/2 COVID-19 Pneumonia. Weaning O2 as tolerated.
[2020-07-19 05:23] LABS: #Lymphocytes 0.7 thou/uL (1.20-3.40); #Monocytes 0.2 thou/uL (0.11-0.59); #Neutrophils 7.8 thou/uL (1.40-6.50); %Eosinophils 0.4 % (0.0-10.0); %Lymphocytes 7.9 % (21.0-51.0); %Monocytes 2.6 % (0.0-10.0); Hemoglobin 12.8 g/dL (14.0-18.0); Mean Corpuscular HGB CONC 32.8 g/dL (32.0-36.0); Mean Corpuscular Hemoglobin 32.1 pg (27.0-31.0); Mean Platelet Volume 11.6 fL (7.4-10.4); Platelet Count 140 thou/uL (130-400); RBC Distribution Width 13.1 % (11.5-14.5); Red Blood Cell (RBC) Count 3.97 mill/uL (4.70-6.10); White Blood Cell (WBC) Count 8.8 thou/uL (4.8-10.8)
[2020-07-19 05:25] LABS: Anion Gap 11 mmol/L (10-20); BUN (Urea Nitrogen) 25 mg/dL (8.4-25.7); Calc. Creatinine Clearance 140 mL/min (70-130); Calcium 7.8 mg/dL (7.8-10.44); Carbon Dioxide 26 mmol/L (22-29); Chloride 103 mmol/L (98-107); Estimated GFR-MDRD Greater than 90; Glucose 210 mg/dL (70-105); Potassium 4.1 mmol/L (3.5-5.1); Sodium 136 mmol/L (136-145)
[2020-07-19 07:25] LABS: Actual Bicarbonate (HCO3a) 26.2 mEq/L (22-28); Base Excess (BEa) 2.3 mEq/L (-2.0 to +3.0); CO2 Tension 38.7 mmHg (35.0-45.0); Calcium, Ionized (arterial) 1.14 mmol/L (1.12-1.30); Carboxyhemoglobin (COHb) 0.8 gm% (0.0-3.0); Hemoglobin (Hb) 14.6 g/dL (14.0-18.0); O2 Tension (PaO2), arterial 72.8 mmHg (80.0-100.0); Potassium - ABG Lab 3.93 mmol/L (3.70-5.30); pH, Arterial 7.45 (7.35-7.45)
[2020-07-19 07:40] LABS: Puncture Site RR
[2020-07-19 07:41] LABS: ALV-art Gradient 164.025 mmHg (0-20)
[2020-07-19] MEDS: methylPREDNISolone Sod Succ 40 MG VIAL IVP SCH ×2 (09:46→20:06)
[2020-07-19] MEDS: Polyethylene Glycol 3350 17 GM Packet PER TUBE SCH (09:46)
[2020-07-19] MEDS: Ziprasidone 20 MG CAP PER TUBE SCH ×2 (09:47→20:06)
[2020-07-19] MEDS: Pantoprazole 40 MG VIAL IVP SCH (09:47)
[2020-07-19] MEDS: Insulin Glargine 27 UNITS in Pre-Filled Syringe 1 EACH SC SCH (10:12)
[2020-07-19] MEDS ORDERED: Insulin Glargine 20 UNITS in Pre-Filled Syringe 1 EACH SC SCH (10:15)
--- NOTE | 2020-07-19 11:08 | PRG ---
DATE OF SERVICE: 07/19/2020 The patient had no air leak, no drainage and chest x-ray remained stable with no pneumothorax on the left. His chest tube was removed and the proximal most hole was plugged up with a small amount of thrombus and pericardial fat. The patient had been off suction for 24 hours at the time of chest tube removal. Job ID: [id number]
[2020-07-19] MEDS: Fludrocortisone Acetate 0.1 MG TAB PER TUBE SCH (12:00)
--- NOTE | 2020-07-19 13:46 | PRG ---
DATE OF SERVICE: 07/19/2020 SUBJECTIVE: Mr. Reynoso is continuing to improve. Yesterday, he tolerated 4 hours on a CPAP trial before he became anxious and was returned to the ventilator. No further trials were done yesterday or this morning. He will follow commands. He denies pain. His chest tube has been removed. OBJECTIVE: VITAL SIGNS: Blood pressure ranges from 89/59 to 127/84, heart rate is 66, saturation 100% on the ventilator. Current ventilator settings have been reviewed. He is sedated, but awakens and follows commands, although very weakly. LUNGS: Show bronchial breath sounds, but no wheezing. HEART: Regular rate and rhythm. ABDOMEN: Soft. There is no organomegaly. EXTREMITIES: He has no edema. DIAGNOSTIC DATA: His chest x-ray shows his chest tube prior to removal. He has multilobar consolidations and patchy infiltrates, greater in the base. The endotracheal tube appears to be at the level of the clavicular heads. The kasey is difficult to ascertain. The tube deviates slightly towards the right, but I do not think it is in the right mainstem. LABORATORY DATA: White count is 8800, hemoglobin is 12.8, platelet count 144,000. Blood gas includes pH 7.45, CO2 is 38, pO2 is 73, and bicarbonate is 26. This was obtained at a rate of 16, PEEP of 5, pressure support of 12. Electrolytes include sodium 136, potassium 4.1, chloride 103, CO2 is 26, BUN 25, creatinine 0.6. IMPRESSION: COVID pneumonia with prolonged ventilator stay complicated by left pneumothorax, now resolved. His followup tests are negative, and he is now out of isolation for 24 hours. We have initiated weaning including CPAP trials and he did 4 hours yesterday. I am going to repeat them today. I have asked that his endotracheal tube be withdrawn about 1 cm. I would anticipate that we will give him another CPAP trial tomorrow and hopefully extubate thereafter. PLAN: CPAP trials today and again tomorrow with possible extubation thereafter. Critical care 31 minutes. Job ID: [id number]
--- NOTE | 2020-07-19 16:38 | RAD ---
ONE VIEW CHEST: 07/19/20 HISTORY: Pneumonia. Follow-up evaluation. COMPARISON: 07/15/20. FINDINGS: Endotracheal tube, nasogastric tube, and left sided thoracostomy tube remain in place and unchanged i n position. Again noted are increased interstitial and patchy air space opacities throughout the lung s bilaterally which may be minimally improved. Extensive subcutaneous emphysema is again seen, but jane bcutaneous emphysema especially on the left has mildly improved. No obvious pneumothorax is seen. No other interval change. IMPRESSION: 1. Suggestion of slight improvement in interstitial and patchy air space opacities bilaterally w hich could be related to viral pneumonitis. 2. Left sided thoracostomy tube remains in place. No obvious pneumothorax is seen. There has bee n improvement in subcutaneous emphysema. POS: [facility]
[2020-07-20] MEDS: Propofol 1,000 MG/100 ML VIAL IV PRN (02:11)
[2020-07-20 03:33] LABS: #Lymphocytes 0.5 thou/uL (1.20-3.40); #Monocytes 0.2 thou/uL (0.11-0.59); #Neutrophils 7.1 thou/uL (1.40-6.50); %Basophils 0.3 % (0.0-1.0); %Eosinophils 0.2 % (0.0-10.0); %Lymphocytes 6.3 % (21.0-51.0); %Monocytes 1.9 % (0.0-10.0); %Neutrophils 91.4 % (42.0-75.0); Hemoglobin 12.6 g/dL (14.0-18.0); Mean Corpuscular HGB CONC 32.1 g/dL (32.0-36.0); Mean Corpuscular Hemoglobin 31.4 pg (27.0-31.0); Mean Corpuscular Volume 97.7 fL (78.0-98.0); Mean Platelet Volume 10.7 fL (7.4-10.4); Platelet Count 152 thou/uL (130-400); RBC Distribution Width 12.8 % (11.5-14.5); White Blood Cell (WBC) Count 7.7 thou/uL (4.8-10.8)
[2020-07-20 03:57] LABS: Anion Gap 10 mmol/L (10-20); BUN (Urea Nitrogen) 23 mg/dL (8.4-25.7); Calc. Creatinine Clearance 146 mL/min (70-130); Calcium 7.8 mg/dL (7.8-10.44); Carbon Dioxide 26 mmol/L (22-29); Chloride 102 mmol/L (98-107); Estimated GFR-MDRD Greater than 90; Glucose 210 mg/dL (70-105); Potassium 4.2 mmol/L (3.5-5.1); Sodium 134 mmol/L (136-145)
[2020-07-20] MEDS: HumaLOG 300 UNITS/3 ML VIAL SC PRN (04:05)
--- NOTE | 2020-07-20 05:36 | PRG ---
DATE OF SERVICE: 07/19/2020 ADDENDUM: Please see the note from Dr. Ling Song for which I agree. The patient was seen, evaluated, discussed, and examined with the residents by bedside. This gentleman is now on day of hospitalization 21 for COVID. Still intubated, but it sounds like we are slowly, but surely weaning him off the vent and he is doing fairly well. Still has a chest tube in for the pneumothorax that he has, a little bit of anxiety and put him on a different medicine other than Lovenox because of some decreased platelets. Otherwise, things have been stable. Sugars have dropped. So, we are going to decrease the Lantus. No other changes needed. Job ID: [id number]
--- NOTE | 2020-07-20 07:01 | PDOC.FM ---
- Subjective Subjective: Patient had NAEO. He remains anxious on the ventilator. His anxiety responds well to ativan per nursing. Chest tube was removed yesterday. - Objective Vital Signs & Weight: Vital Signs (12 hours) Temp Pulse Resp BP Pulse Ox 07/20/20 06:00 31 H 07/20/20 04:00 98.2 F 24 H 07/20/20 02:07 73 103/72 07/20/20 02:00 27 H 07/20/20 00:00 98.4 F 24 H 07/19/20 22:05 83 125/87 07/19/20 22:00 37 H 07/19/20 20:00 98.4 F 27 H 100 Weight Admit Weight 81.193 kg Weight 76.6 kg Most Recent Monitor Data Heart Rate from ECG 71 NIBP 118/81 NIBP BP-Mean 93 Respiration from ECG 27 SpO2 100 I&O: 07/19/20 07/20/20 07/21/20 06:59 06:59 06:59 Intake Total 1502.4 1479.1 Output Total 2340 1960 Balance -837.6 -480.9 Result Diagrams: 07/20/20 03:07 07/20/20 03:07 Phys Exam - Physical Examination Constitutional: NAD Respiratory: no wheezing, clear to auscultation bilateral Cardiovascular: RRR, no significant murmur Gastrointestinal: soft, non-tender, no distention, positive bowel sounds Musculoskeletal: no edema, pulses present Neurological: non-focal, moves all 4 limbs Psychiatric: normal affect Skin: normal turgor, cap refill <2 seconds Dx/Plan (1) Acute respiratory failure with hypoxia Code(s): J96.01 - ACUTE RESPIRATORY FAILURE WITH HYPOXIA Status: Acute (2) COVID-19 Code(s): U07.1 - COVID-19 Status: Acute (3) DM2 (diabetes mellitus, type 2) Status: Chronic (4) Thrombocytopenia Code(s): D69.6 - THROMBOCYTOPENIA, UNSPECIFIED Status: Acute (5) PNA (pneumonia) Code(s): J18.9 - PNEUMONIA, UNSPECIFIED ORGANISM Status: Acute - Plan Plan: 54 y/o male who recently immigrated from [place] for medical treatment who presented with COVID-19 Pneumonia. #Acute Hypoxic Resp Failure and Sepsis 2/2 COVID PNA #Intubated/Sedated -Pt presented with 2wk hx of reported PNA, however worsened acutely before admission -IgG Covid points to prolonged infection, although course timing is abnormal for COVID -Came off isolation 07/18 (tested positive for COVID on 06/28) -HFNC>BIPAP>intubated 07/06 due to respiratory fatigue, pronated -> supine 07/07 -Sedation: prn Ativan, geodon on 07/15, fentanyl patch, precedex -ID consulted and pt does not meet criteria for Remdesivir or Convalescent Plasma d/t prolonged course -s/p course of Abx (Rocephin and Azithromycin), Pulmonology consulted 07/06 and added Doxycycline (D/C'd 07/13) as well as increased steroids to Solu-Medrol 80mg IV BID (decreased to 40mg BID on 07/15, decreased to 20mg BID on 07/18). -D-dimer trending down/stable -Plan for CPAP trial/weaning and possible extubation today or tomorrow. Pneumomediastinum/pneumo -CXR 07/08 revealed L-sided small/moderate pneumothorax -repeat CXR demonstrated expansion -L-sided chest tube inserted 07/08, removed 07/19 #Anxiety and agitation -prn Ativan, geodon on 07/15, fentanyl patch, precedex -will continue propofol as we continue to wean #DM2 -Mild SSI on board -Reduced insulin yesterday; BS elevated. Give 27 U today -patient is on continuous tube feeds @ 35ml/hr -HgA1c: 6.5 -hold Metformin 500 mg PO while intubated #Travel to [place] -Quant Gold: Indeterminate, low suspicion for TB -Consider PPD as outpatient #Transaminitis, resolved -continued improvement -Hepatitis A antibody + -Hepatitis Panel wnl -suspect EtOH per hx #Thrombocytopenia -anticoagulation transitioned to fondaparinux as platelets <100 -platelets stable 120s -will continue to monitor #Constipation -patient had BM 07/15 -continue miralax per tube PCP: [facility] - None Code: Full Diet: OG tube feeds @ 35ml/hr-intubated VTE PPx: fondaparinux GI PPx: Pantoprazole IVF: TKO Lines/Tubes: 2 peripheral, OG tube, benítez Dispo: Patient is currently intubated/sedated for pulmonary fatigue related to Acute Hypoxic Respiratory Failure and Sepsis 2/2 COVID-19 Pneumonia. Weaning O2 as tolerated. Plan for extubation today or tomorrow.
[2020-07-20 07:17] LABS: Actual Bicarbonate (HCO3a) 24.8 mEq/L (22-28); Base Excess (BEa) 1.2 mEq/L (-2.0 to +3.0); CO2 Tension 36.2 mmHg (35.0-45.0); Calcium, Ionized (arterial) 1.12 mmol/L (1.12-1.30); Carboxyhemoglobin (COHb) 1.1 gm% (0.0-3.0); Hemoglobin (Hb) 14.4 g/dL (14.0-18.0); O2 Tension (PaO2), arterial 74.9 mmHg (80.0-100.0); Potassium - ABG Lab 3.77 mmol/L (3.70-5.30); pH, Arterial 7.45 (7.35-7.45)
[2020-07-20 07:19] LABS: Puncture Site A
[2020-07-20] MEDS: methylPREDNISolone Sod Succ 40 MG VIAL IVP SCH ×2 (08:17→20:43)
[2020-07-20] MEDS: Pantoprazole 40 MG VIAL IVP SCH (08:20)
[2020-07-20] MEDS: Ziprasidone 20 MG CAP PER TUBE SCH ×2 (08:23→20:44)
[2020-07-20] MEDS: Polyethylene Glycol 3350 17 GM Packet PER TUBE SCH (08:24)
[2020-07-20] MEDS: Insulin Glargine 27 UNITS in Pre-Filled Syringe 1 EACH SC SCH (08:25)
--- NOTE | 2020-07-20 08:54 | RAD ---
EXAM: CHEST ONE VIEW HISTORY: Pneumonia. Follow-up evaluation. COMPARISON: 07/19/2020 FINDINGS: Endotracheal tube and nasogastric tubes are unchanged in position. Increased interstitial and patchy parenchymal airspace opacities are again seen within the lungs bilaterally. The left-sided thoracostomy tube has been removed. No pneumothorax is seen. Subcutaneous emphysema persists but has improved along the left lateral chest. IMPRESSION: 1. Persistent increased interstitial and alveolar opacities greater at the left lung base and right m id lung zone. Airspace opacities have increased compared to prior study. Findings are likely related to worsening bilateral pneumonia 2. Interval removal of the left-sided thoracostomy tube without pneumothorax visualized.
[2020-07-20] MEDS: Fludrocortisone Acetate 0.1 MG TAB PER TUBE SCH (09:01)
[2020-07-20] MEDS: fentaNYL 75 mcg/hour Patch TD SCH (09:36)
--- NOTE | 2020-07-20 10:15 | PRG ---
DATE OF SERVICE: 07/20/2020 Please see the note from Dr. Song for which I agree. The patient was seen, evaluated, discussed, and examined with the residents by bedside. The patient was extubated this morning, but unfortunately is not doing that rate after being extubated. Respiratory rates up in the mid 20s to around 30 and is needing extremely high oxygen flow rate as well as FiO2. CT chest tube was removed yesterday. So, there is a good chance he may end up getting reintubated. The ct scan technologist has already been notified and is headed to evaluate him. On exam, his lungs are pretty coarse and a chest x-ray showed a little more infiltrate compared to yesterday. Rest of his labs look pretty stable. His ABGs this morning actually looked great, but unfortunately he is not doing that well after being extubated, so continuing supportive care after a trial of extubation for COVID that was diagnosed now almost three weeks ago. Job ID: [id number]
--- NOTE | 2020-07-20 11:57 | PRG ---
DATE OF SERVICE: 07/20/2020 SUBJECTIVE: Mr. Reynoso tolerated IV trials yesterday. He was rested on the ventilator over the night and returned to CPAP this morning. He still has paroxysms where he becomes quite tachypneic. Following aggressive suction, I think the patient meets indications and has been extubated. Following extubation, he is still having paroxysms, which look to be in an attempt to clear secretions. It appears as though he becomes very tachypneic and slightly deeper, but not really doing a cough maneuver. He initially had desaturations and has been placed on high-flow nasal cannula, although continues to show recovery and hopefully we will be able to stay off the ventilator. He is awake, alert, and conversant with his family who are at bedside. PHYSICAL EXAMINATION: VITAL SIGNS: Blood pressure is 108/72, heart rate 64. He is currently on high-flow nasal cannula at 90%. GENERAL: He has a raspy voice. NECK: He has no JVD. LUNGS: Show bilateral coarse rales without wheezing. He has a very tenuous tachypneic pattern with marginal cough as described above. HEART: Regular rate and rhythm. I do not hear a murmur. ABDOMEN: Soft. He has no organomegaly. EXTREMITIES: He has no edema. NEUROLOGIC: Shows a fairly preserved strength given his prolonged intubation. IMPRESSION: COVID pneumonia, now slowly improving and extubated today. PLAN: At this point, we will continue aggressive pulmonary toilet and reduce his FiO2 as tolerated. He is currently on high-flow, but I would like to think that we can get him back to a simple mask or even a traditional nasal cannula. Certainly, we do not wish to intubate him again. We will try to get him out of bed and advance diet in the next 24 to 48 hours based on the speech assessment. Critical care, 30 minutes. Job ID: [id number]
[2020-07-21] MEDS: Calcium Carbonate 500 MG ChewTAB PO PRN (00:36)
[2020-07-21 03:54] LABS: #Lymphocytes 0.7 thou/uL (1.20-3.40); #Monocytes 0.2 thou/uL (0.11-0.59); #Neutrophils 6.8 thou/uL (1.40-6.50); %Basophils 0.1 % (0.0-1.0); %Eosinophils 0.3 % (0.0-10.0); %Lymphocytes 9.6 % (21.0-51.0); %Monocytes 2.9 % (0.0-10.0); %Neutrophils 87.1 % (42.0-75.0); Hemoglobin 14.2 g/dL (14.0-18.0); Mean Corpuscular Hemoglobin 32.3 pg (27.0-31.0); Mean Corpuscular Volume 97.9 fL (78.0-98.0); Mean Platelet Volume 10.1 fL (7.4-10.4); Platelet Count 165 thou/uL (130-400); RBC Distribution Width 12.8 % (11.5-14.5); Red Blood Cell (RBC) Count 4.39 mill/uL (4.70-6.10); White Blood Cell (WBC) Count 7.8 thou/uL (4.8-10.8)
[2020-07-21 04:05] LABS: Anion Gap 14 mmol/L (10-20); BUN (Urea Nitrogen) 21 mg/dL (8.4-25.7); Calc. Creatinine Clearance 132 mL/min (70-130); Calcium 8.2 mg/dL (7.8-10.44); Carbon Dioxide 26 mmol/L (22-29); Chloride 99 mmol/L (98-107); Estimated GFR-MDRD Greater than 90; Glucose 115 mg/dL (70-105); Sodium 135 mmol/L (136-145)
--- NOTE | 2020-07-21 07:42 | PDOC.FM ---
- Subjective Subjective: Patient denies pain this AM. Successfully extubated yesterday. Now on HFNC. Reports he ate some pudding. No questions for me this AM. - Objective MAR Reviewed: Yes Vital Signs & Weight: Vital Signs (12 hours) Temp Pulse Ox 07/21/20 07:11 100 07/21/20 03:57 98.3 F 07/20/20 23:00 98.4 F Weight Admit Weight 81.193 kg Weight 77.3 kg Most Recent Monitor Data Heart Rate from ECG 60 NIBP 118/79 NIBP BP-Mean 92 Respiration from ECG 18 SpO2 100 I&O: 07/20/20 07/21/20 07/22/20 06:59 06:59 06:59 Intake Total 1479.1 677.0 Output Total 1960 1615 Balance -480.9 -938.0 Result Diagrams: 07/21/20 03:30 07/21/20 03:30 Phys Exam - Physical Examination Constitutional: NAD HEENT: PERRLA, sclera anicteric Respiratory: no wheezing dry crackles bilaterally diffuse Cardiovascular: RRR, no significant murmur Gastrointestinal: soft, non-tender, no distention Musculoskeletal: no edema, pulses present Neurological: non-focal Lymphatic: no nodes Psychiatric: normal affect Skin: no rash Dx/Plan - Plan Plan: 54 y/o male who recently immigrated from [place] for medical treatment who presented with COVID-19 Pneumonia: Resp: Acute Hypoxic Resp Failure and Sepsis 2/2 COVID PNA Pneumomediastinum/pneumothorax - chest tube inserted 07/08, removed 07/19 - extubated 07/20. - O2 req: HFNC at 40 L/min on 40% FiO2 - discontinued isolation precautions since patient is >21 days from illness onset - continue steroids Solumedrol 20mg IV BID CV: Hemodynamically stable - IVF: TKO GI: Transaminitis, resolved Hepatitis A antibody positive Constipation, resolved - GI PPx: Pantoprazole - on tube feeds during intubation. - Diet: Carb Consistent - Continue daily Miralax while on opioids Endo: Type 2 Diabetes Mellitus - Mild SSI - Glargine 27 units daily Heme/ID: Indeterminate quantiferon Gold Thrombocytopenia, improved Covid PNA - VTE PPx: fondaparinux - initially platelets below 100 and now improved >150 - Consider PPD as outpatient - Recent travel from [place] - ID consulted, appreciate recs - s/p course of ceftriaxone, azithromycin, doxycycline Neuro: Anxiety and agitation on vent - AxO x3 - wean precedex - fentanyl patch and breakthrough IV morphine for pain. PCP: CC - None Code: Full IVF: TKO Lines/Tubes: 2 PIVs, benítez. Dispo: Continue to wean O2 as tolerated. If stable on HFNC today, consider tra nsfer to medical floor today or tomorrow. Addendum - Attending - Attending Attestation Date/Time: 07/21/20 1402 I personally evaluated the patient and discussed the management with Dr. Cervantes. I agree with the History, Examination, Assessment and Plan documented above with any addition or exceptions noted below.
--- NOTE | 2020-07-21 07:54 | RAD ---
EXAM: CHEST ONE VIEW HISTORY: Pneumonia COMPARISON: 07/20/2020 FINDINGS: Endotracheal tube and nasogastric tubes have been removed. Interstitial and patchy parenchymal airspa ce opacities are again seen within the lungs bilaterally. There has been mild improvement in aeration in the right lung compared to the prior exam. Subcutaneous emphysema is again seen in the s upraclavicular regions. No pneumothorax is seen on this exam. No other interval change IMPRESSION: 1. Interstitial and patchy parenchymal airspace opacities bilaterally with improvement in aeration on the right suggesting mild improvement in bilateral pneumonia. 2. Interval removal of endotracheal tube and nasogastric tube.
[2020-07-21] MEDS: methylPREDNISolone Sod Succ 40 MG VIAL IVP SCH ×2 (08:42→20:26)
[2020-07-21] MEDS: Sodium Chloride 0.9% (PF) 10 ML VIAL FS PRN (08:42)
[2020-07-21] MEDS: Pantoprazole 40 MG VIAL IVP SCH (08:42)
[2020-07-21] MEDS: Insulin Glargine 27 UNITS in Pre-Filled Syringe 1 EACH SC SCH (08:52)
[2020-07-21] MEDS: Polyethylene Glycol 3350 17 GM Packet PER TUBE SCH (08:53)
[2020-07-21] MEDS: Fludrocortisone Acetate 0.1 MG TAB PER TUBE SCH (08:53)
[2020-07-21] MEDS: Ziprasidone 20 MG CAP PER TUBE SCH ×2 (08:59→20:26)
--- NOTE | 2020-07-21 16:54 | PRG ---
DATE OF SERVICE: 07/21/2020 SUBJECTIVE: Mr. Reynoso was extubated yesterday. He is actually eating today. He gets tachycardic and tachypneic when he eats, but I am told by the nursing staff when he is not stimulated and sleeping, his heart rate drops into the 90s and his respiratory rate drops into the low 20s. He is still on high-flow oxygen. OBJECTIVE: LUNGS: Unchanged. HEART: Unchanged. ABDOMEN: Unchanged. LABORATORY DATA: White count 7.8, hemoglobin 14.2, platelets 165. Electrolytes are normal. IMPRESSION AND PLAN: COVID pneumonia, clinically improving slowly after extubation. We will discontinue his sedation protocol. He will remain in the critical care unit for now. Job ID: [id number]
[2020-07-22 04:18] LABS: #Lymphocytes 0.7 thou/uL (1.20-3.40); #Monocytes 0.2 thou/uL (0.11-0.59); #Neutrophils 8.8 thou/uL (1.40-6.50); %Basophils 0.1 % (0.0-1.0); %Eosinophils 0.2 % (0.0-10.0); %Lymphocytes 6.9 % (21.0-51.0); %Monocytes 1.8 % (0.0-10.0); %Neutrophils 90.9 % (42.0-75.0); Hemoglobin 15.7 g/dL (14.0-18.0); Mean Corpuscular HGB CONC 32.5 g/dL (32.0-36.0); Mean Corpuscular Hemoglobin 31.5 pg (27.0-31.0); Mean Corpuscular Volume 96.7 fL (78.0-98.0); Mean Platelet Volume 10.8 fL (7.4-10.4); Platelet Count 202 thou/uL (130-400); RBC Distribution Width 13.1 % (11.5-14.5); Red Blood Cell (RBC) Count 4.98 mill/uL (4.70-6.10); White Blood Cell (WBC) Count 9.7 thou/uL (4.8-10.8)
[2020-07-22 04:34] LABS: Anion Gap 14 mmol/L (10-20); BUN (Urea Nitrogen) 20 mg/dL (8.4-25.7); Calc. Creatinine Clearance 130 mL/min (70-130); Calcium 8.7 mg/dL (7.8-10.44); Carbon Dioxide 28 mmol/L (22-29); Chloride 96 mmol/L (98-107); Estimated GFR-MDRD Greater than 90; Glucose 231 mg/dL (70-105); Potassium 4.3 mmol/L (3.5-5.1); Sodium 134 mmol/L (136-145)
[2020-07-22] MEDS: HumaLOG 300 UNITS/3 ML VIAL SC PRN ×3 (04:41→21:23)
--- NOTE | 2020-07-22 07:26 | PDOC.FM ---
- Subjective Subjective: Feeling well this AM. Denies pain. Worked w/ PT yesterday. No acute events overnight. Continues to improve/wean O2. CXR stable this AM. Subcutaneous emphysema improving. - Objective MAR Reviewed: Yes Vital Signs & Weight: Vital Signs (12 hours) Temp Pulse Ox 07/22/20 07:00 97.9 F 07/22/20 03:00 98.4 F 07/22/20 02:18 100 07/21/20 23:00 98.2 F 07/21/20 19:56 98 Weight Admit Weight 81.193 kg Weight 77.5 kg Most Recent Monitor Data Heart Rate from ECG 111 NIBP 151/110 NIBP BP-Mean 123 Respiration from ECG 23 SpO2 96 I&O: 07/21/20 07/22/20 07/23/20 06:59 06:59 06:59 Intake Total 677.0 760 Output Total 1615 1397 95 Balance -938.0 -637 -95 Result Diagrams: 07/22/20 03:30 07/22/20 03:30 Phys Exam - Physical Examination Constitutional: NAD HEENT: moist MMs, sclera anicteric coarse breath sounds bilaterally Cardiovascular: RRR, no significant murmur Gastrointestinal: soft, non-tender, no distention, positive bowel sounds Musculoskeletal: no edema (SCDs on) Psychiatric: normal affect, A&O x 3 Dx/Plan - Plan Plan: 54 y/o male who recently immigrated from [place] for medical treatment who presented with COVID-19 Pneumonia: Resp: Acute Hypoxic Resp Failure and Sepsis 2/2 COVID PNA, improving Pneumomediastinum/pneumothorax, improving - chest tube 07/08-07/19 - extubated 07/20. - O2 req: HFNC at 35 L/min on 40% FiO2 - discontinued isolation precautions since patient is >21 days from illness onset - continue steroids Solumedrol 20mg IV BID CV: HTN, undiagnosed previously Hemodynamically stable - IVF: TKO - start amlodipine today, 5 mg GI: Transaminitis, resolved Hepatitis A antibody positive Constipation, resolved - GI PPx: Pantoprazole - Diet: Carb Consistent - Speech consulted, rec mechanical soft. ADAT. - Continue daily Miralax while on opioids Endo: Type 2 Diabetes Mellitus - Mild SSI - Glargine 27 units daily Heme/ID: Indeterminate quantiferon Gold Thrombocytopenia, resolved Covid PNA - VTE PPx: fondaparinux - Consider PPD as outpatient; Recent travel from [place] - ID consulted, appreciate recs - s/p course of ceftriaxone, azithromycin, doxycycline Psych/Neuro: Anxiety and agitation on vent Likely underlying anxiety disorder - AxO x3 - fentanyl patch originally placed for difficulty with sedation - wean fentanyl patch slowly, decrease to 50mcg today, decrease next patch in 3 days to 25 mcg if tolerating the 50mcg - start SSRI, likely paxil. PCP: CC - None Code: Full IVF: TKO Lines/Tubes: 2 PIVs. Discontinue Benítez today. Dispo: Continue to wean O2 as tolerated. D/c benítez. Encourage activity with PT/OT. May use urinal or up to bedside commode. Would like to be aggressive with PT/OT to help patient get to home when off HFNC. Transfer to [facility] today. Addendum - Attending - Attending Attestation Date/Time: 07/22/20 6351 I personally evaluated the patient and discussed the management with Dr. Cervantes. I agree with the History, Examination, Assessment and Plan documented above with any addition or exceptions noted below.
--- NOTE | 2020-07-22 07:43 | RAD ---
Chest AP view INDICATION: Pneumonia COMPARISON: July 21, 2020 FINDINGS: Lungs: Bilateral airspace disease is stable Cardiac silhouette: Heart size is accentuated by exam technique and hypoventilation Pulmonary vasculature: The accentuated due to hypoventilation Pleural spaces: No pleural effusion or pneumothorax is demonstrated. Upper abdomen: No abnormality seen. Osseous structures: No acute osseous abnormality. Additional findings: Subcutaneous emphysema involving the neck base is mildly improved IMPRESSION: Improving subcutaneous emphysema of the neck base. Stable bilateral airspace disease. No pneumothorax is evident.
[2020-07-22] MEDS: Amlodipine 5 MG TAB PO SCH (08:46)
[2020-07-22] MEDS: methylPREDNISolone Sod Succ 40 MG VIAL IVP SCH ×2 (08:47→19:52)
[2020-07-22] MEDS: Fludrocortisone Acetate 0.1 MG TAB PER TUBE SCH (08:47)
[2020-07-22] MEDS: Insulin Glargine 27 UNITS in Pre-Filled Syringe 1 EACH SC SCH (09:49)
[2020-07-22] MEDS ORDERED: fentaNYL 50 mcg/hour Patch TD SCH (09:58)
[2020-07-22] MEDS: Polyethylene Glycol 3350 17 GM Packet PER TUBE SCH (10:29)
[2020-07-22] MEDS: Ziprasidone 20 MG CAP PER TUBE SCH (10:29)
--- NOTE | 2020-07-22 14:14 | PRG ---
DATE OF SERVICE: 07/22/2020 SUBJECTIVE: Mr. Reynoso looks much better today. OBJECTIVE: VITAL SIGNS: Heart rate is 115, blood pressure 110/76, respiratory rates in the 20s, oximetry is 100%. His oxygen requirements continue to drop. LUNGS: Remarkable for mild crackles bilaterally. HEART: Regular rhythm. ABDOMEN: Soft. EXTREMITIES: Without edema. LABORATORY DATA: White count 9.7, hemoglobin 15.7, platelets 202. Sodium 134, potassium 4.3, chloride 96, bicarb 28, BUN 20, creatinine 0.72. IMPRESSION: COVID-19 pneumonia, status post mechanical ventilation, clinically doing well. He could probably move to the intermediate care unit. Job ID: [id number]
[2020-07-23 04:29] LABS: #Monocytes 0.4 thou/uL (0.11-0.59); #Neutrophils 8.3 thou/uL (1.40-6.50); %Basophils 0.3 % (0.0-1.0); %Eosinophils 0.2 % (0.0-10.0); %Lymphocytes 10.2 % (21.0-51.0); %Monocytes 4.3 % (0.0-10.0); %Neutrophils 85.1 % (42.0-75.0); Hemoglobin 14.6 g/dL (14.0-18.0); Mean Corpuscular HGB CONC 31.9 g/dL (32.0-36.0); Mean Corpuscular Hemoglobin 31.1 pg (27.0-31.0); Mean Corpuscular Volume 97.3 fL (78.0-98.0); Mean Platelet Volume 10.2 fL (7.4-10.4); Platelet Count 216 thou/uL (130-400); White Blood Cell (WBC) Count 9.8 thou/uL (4.8-10.8)
[2020-07-23 04:31] LABS: Anion Gap 11 mmol/L (10-20); BUN (Urea Nitrogen) 23 mg/dL (8.4-25.7); Calc. Creatinine Clearance 134 mL/min (70-130); Calcium 8.4 mg/dL (7.8-10.44); Carbon Dioxide 30 mmol/L (22-29); Chloride 101 mmol/L (98-107); Estimated GFR-MDRD Greater than 90; Glucose 122 mg/dL (70-105); Potassium 4.2 mmol/L (3.5-5.1); Sodium 138 mmol/L (136-145)
--- NOTE | 2020-07-23 06:51 | PDOC.FM ---
- Subjective Subjective: Continues to improve. Moved to [facility] yesterday. On 4L NC. Says he can now drink cold liquids without coughing. ICS at bedside. Discussed how to use and pt demonstrated ability to inspire 500- 1000 mL. - Objective MAR Reviewed: Yes Vital Signs & Weight: Vital Signs (12 hours) Temp Pulse Ox 07/23/20 03:51 98.2 F 07/22/20 23:39 98.5 F 07/22/20 20:00 98.1 F 96 Weight Admit Weight 81.193 kg Weight 70.035 kg Most Recent Monitor Data Heart Rate from ECG 69 NIBP 107/78 NIBP BP-Mean 87 Respiration from ECG 16 SpO2 100 I&O: 07/21/20 07/22/20 07/23/20 06:59 06:59 06:59 Intake Total 677.0 760 800 Output Total 1615 1397 425 Balance -938.0 -637 375 Result Diagrams: 07/23/20 04:00 07/23/20 04:00 Phys Exam - Physical Examination Constitutional: NAD Respiratory: no wheezing decreased air movement, coarse sounds bilaterally, mild improvement Cardiovascular: RRR, no significant murmur Gastrointestinal: soft, positive bowel sounds Musculoskeletal: no edema Neurological: non-focal, moves all 4 limbs Psychiatric: normal affect, A&O x 3 Dx/Plan - Plan Plan: 54 y/o male who recently immigrated from [place] for medical treatment who presented with COVID-19 Pneumonia: Resp: Acute Hypoxic Resp Failure and Sepsis 2/2 COVID PNA, improving Pneumomediastinum/pneumothorax, improving - O2 req: 4L/min NC - discontinued isolation precautions since patient is >21 days from illness onset - continue steroids Solumedrol 20mg IV BID CV: HTN, undiagnosed previously - IVF: TKO - amlodipine started 07/22 GI: Transaminitis, resolved Hepatitis A antibody positive Constipation, resolved - GI PPx: Pantoprazole. Discuss discontinuation today since patient is eating without difficulty. - Diet: Carb Consistent - Speech consulted, rec mechanical soft. ADAT. - Continue daily Miralax while on opioids Endo: Type 2 Diabetes Mellitus - Mild SSI - Glargine 27 units daily while on steroids. Heme/ID: Indeterminate quantiferon Gold Thrombocytopenia, resolved Covid PNA, improved - VTE PPx: fondaparinux - Consider PPD as outpatient; Recent travel from [place] - ID consulted, appreciate recs - s/p course of ceftriaxone, azithromycin, doxycycline Psych/Neuro: Anxiety and agitation on vent, resolved Likely underlying anxiety disorder, improved - AxO x3 - wean fentanyl patch slowly, decrease to 50mcg today, decrease next patch in 3 days to 25 mcg if tolerating the 50mcg - start SSRI today of paxil PCP: CC - None. Pt tells me today he sees Marianne. Code: Full IVF: TKO Lines/Tubes: 2 PIVs. Dispo: Continue to wean O2 as tolerated. PT/OT recommend Rehab vs SNU. Post acute screening consult placed. If O2 status stable on NC, anticipate discharge once placement is secured. Continue aggressive PT/OT. Addendum - Attending - Attending Attestation Date/Time: 07/23/20 6406 I personally evaluated the patient and discussed the management with Dr. Cervantes. I agree with the History, Examination, Assessment and Plan documented above with any addition or exceptions noted below.
--- NOTE | 2020-07-23 07:50 | RAD ---
EXAM: CHEST ONE VIEW HISTORY: Pneumonia. COMPARISON: 07/22/2020 FINDINGS: The cardiac silhouette and pulmonary vasculature are within normal limits. There are increased inters titial and patchy parenchymal airspace opacities within the lungs bilaterally greater at the left lung base and right midlung zone which have not significantly changed from prior study given differen lc in technique. Subcutaneous emphysema again overlies the supraclavicular regions bilaterally. Mildly dilated gas-filled loops of small bowel are seen in the left upper quadrant. No other interval change. IMPRESSION: 1. Overall stable interstitial and patchy minimal airspace opacities again likely related to pneumoni a. Atypical pneumonia or viral pneumonitis. 2. Mildly dilated gas-filled loops of small bowel left upper quadrant. 2. Subjacent emphysema supraclavicular region, slightly improved..
[2020-07-23] MEDS: Polyethylene Glycol 3350 17 GM Packet PER TUBE SCH (08:15)
[2020-07-23] MEDS: PARoxetine 20 MG TAB PO SCH (08:16)
[2020-07-23] MEDS: methylPREDNISolone Sod Succ 40 MG VIAL IVP SCH ×2 (08:16→20:09)
[2020-07-23] MEDS: Fludrocortisone Acetate 0.1 MG TAB PER TUBE SCH (08:16)
[2020-07-23] MEDS: Amlodipine 5 MG TAB PO SCH (08:24)
[2020-07-23] MEDS: HumaLOG 300 UNITS/3 ML VIAL SC PRN ×2 (10:31→17:29)
[2020-07-23] MEDS: Insulin Glargine 27 UNITS in Pre-Filled Syringe 1 EACH SC SCH (10:31)
--- NOTE | 2020-07-23 22:14 | PRG ---
DATE OF SERVICE: 07/23/2020 SUBJECTIVE: Mr. Reynoso is stable. Surprisingly, he is already down to 2 L nasal cannula. OBJECTIVE: VITAL SIGNS: Heart rate 72, blood pressure 113/78. LUNGS: Unchanged. HEART: Unchanged. ABDOMEN: Unchanged. he may be a candidate for discharge in 24 to 48 hours. Obviously, diabetes control will be a big issue after he gets out of the hospital. He will have to be educated and then be compliant with medications. Job ID: [id number]
[2020-07-24 03:25] LABS: #Lymphocytes 0.8 thou/uL (1.20-3.40); #Monocytes 0.3 thou/uL (0.11-0.59); #Neutrophils 8.5 thou/uL (1.40-6.50); %Basophils 0.3 % (0.0-1.0); %Eosinophils 0.1 % (0.0-10.0); %Lymphocytes 8.2 % (21.0-51.0); %Monocytes 2.9 % (0.0-10.0); %Neutrophils 88.6 % (42.0-75.0); Hemoglobin 14.3 g/dL (14.0-18.0); Mean Corpuscular HGB CONC 32.6 g/dL (32.0-36.0); Mean Corpuscular Hemoglobin 31.8 pg (27.0-31.0); Mean Corpuscular Volume 97.6 fL (78.0-98.0); Platelet Count 213 thou/uL (130-400); RBC Distribution Width 12.9 % (11.5-14.5); White Blood Cell (WBC) Count 9.6 thou/uL (4.8-10.8)
[2020-07-24 03:45] LABS: Anion Gap 10 mmol/L (10-20); BUN (Urea Nitrogen) 22 mg/dL (8.4-25.7); Calc. Creatinine Clearance 119 mL/min (70-130); Calcium 8.2 mg/dL (7.8-10.44); Carbon Dioxide 29 mmol/L (22-29); Chloride 99 mmol/L (98-107); Estimated GFR-MDRD Greater than 90; Glucose 130 mg/dL (70-105); Potassium 4.2 mmol/L (3.5-5.1); Sodium 134 mmol/L (136-145)
--- NOTE | 2020-07-24 06:54 | PDOC.FM ---
- Subjective Subjective: Patient practicing w/ ICS this morning. With PT yesterday, desat to 73% with standing/activity at edge of bed. Quickly recovered saturations with rest. Discussed rehab with patient this morning; he agrees this would be a good option prior to going home. - Objective MAR Reviewed: Yes Vital Signs & Weight: Vital Signs (12 hours) Temp Pulse Ox 07/24/20 03:36 97.3 F L 07/23/20 23:34 97.8 F 07/23/20 19:43 100 07/23/20 19:19 97.0 F L Weight Admit Weight 81.193 kg Weight 70.035 kg Most Recent Monitor Data Heart Rate from ECG 75 NIBP 113/84 NIBP BP-Mean 93 Respiration from ECG 19 SpO2 100 I&O: 07/22/20 07/23/20 07/24/20 06:59 06:59 06:59 Intake Total 760 800 980 Output Total 1397 425 825 Balance -637 375 155 Result Diagrams: 07/24/20 03:00 07/24/20 03:00 Phys Exam - Physical Examination Constitutional: NAD unchanged from yesterday Cardiovascular: RRR Gastrointestinal: soft, positive bowel sounds Musculoskeletal: no edema Psychiatric: normal affect, A&O x 3 Dx/Plan - Plan Plan: 54 y/o male who recently immigrated from [place] for medical treatment who presented with COVID-19 Pneumonia: Resp: Acute Hypoxic Resp Failure and Sepsis 2/2 COVID PNA, improving Pneumomediastinum/pneumothorax, improving - O2 req: 2 L/min NC - continue steroids Solumedrol 20mg IV BID, d/c fludrocortisone yesterday - convert IV to PO steroids today - d/c daily CXR CV: HTN, undiagnosed previously - amlodipine started 07/22 GI: Transaminitis, resolved Hepatitis A antibody positive Constipation, resolved - GI PPx: Pantoprazole. Continue while on steroids. - Diet: Carb Consistent - Speech consulted, rec mechanical soft. ADAT. - Continue daily Miralax while on opioids Endo: Type 2 Diabetes Mellitus - Mild SSI - Glargine 27 units daily while on steroids. Heme/ID: Indeterminate quantiferon Gold Thrombocytopenia, resolved Covid PNA, improved - VTE PPx: fondaparinux - Consider PPD as outpatient; Recent travel from [place] - ID consulted, appreciate recs - s/p course of ceftriaxone, azithromycin, doxycycline Psych/Neuro: Unspecified anxiety disorder, improved - wean fentanyl patch - Paxil started 07/24 PCP: CC - None. Pt tells me today he sees Marianne. Code: Full IVF: TKO Lines/Tubes: 2 PIVs. Dispo: Continue to wean O2 as tolerated. PT/OT recommend Rehab vs SNU. Awaiting insurance auth for [facility] in [place]. In my opinion this is best option for patient should his O2 requirement increase slightly while doing more intensive therapy to get back to his baseline ADLs. Addendum - Attending - Attending Attestation Date/Time: 07/24/20 7656 I personally evaluated the patient and discussed the management with Dr. Gustafson. I agree with the History, Examination, Assessment and Plan documented above with any addition or exceptions noted below.
--- NOTE | 2020-07-24 09:19 | RAD ---
CHEST 1 VIEW: INDICATION: History of pneumonia. COMPARISON: Prior exam dated 07/23/2020. FINDINGS: Scattered parenchymal opacities bilaterally are stable. Small bilateral pleural effusions persist. No pneumothorax is evident. Osseous structures are unchanged. IMPRESSION: Stable exam. POS: BH
[2020-07-24] MEDS: Amlodipine 5 MG TAB PO SCH (10:18)
[2020-07-24] MEDS: PARoxetine 20 MG TAB PO SCH (10:19)
[2020-07-24] MEDS: predniSONE 20 MG TAB PO SCH (10:19)
[2020-07-24] MEDS: Polyethylene Glycol 3350 17 GM Packet PER TUBE SCH (10:19)
[2020-07-24] MEDS: Insulin Glargine 27 UNITS in Pre-Filled Syringe 1 EACH SC SCH (10:21)
[2020-07-24] MEDS ORDERED: Apixaban 5 MG TAB PO SCH ×2 (11:00→21:00)
--- NOTE | 2020-07-24 12:30 | PRG ---
DATE OF SERVICE: 07/24/2020 SUBJECTIVE: Mr. Reynoso is doing well. This is day 26 of his hospitalization. He is ambulating short distances. He is still weak, but he is getting stronger. OBJECTIVE: LUNGS: Clear. HEART: Regular rhythm. ABDOMEN: Soft. PLAN: We will switch him to p.o. anticoagulants. I do not feel he needs a loading dose of his Eliquis. We will continue physical therapy. He is doing so well. He is a candidate to go home once he is ambulatory. I would slowly taper his steroids over 2 to 3 weeks. I would continue him on full-dose anticoagulation for at least another week, may be two. We need to switch him to prophylactic dose for the remainder of 3 months. This is still not clearly defined as what is recommended but this seems to have been working well so far. It is well known that the hypercoagulable state can last as long as 3 months, so I think this is a reasonable approach. Job ID: [id number]
[2020-07-24] MEDS: HumaLOG 300 UNITS/3 ML VIAL SC PRN (17:29)
[2020-07-24] MEDS: Apixaban 5 MG TAB PO SCH (21:55)
[2020-07-25 05:49] LABS: Anion Gap 11 mmol/L (10-20); BUN (Urea Nitrogen) 20 mg/dL (8.4-25.7); Calc. Creatinine Clearance 126 mL/min (70-130); Calcium 8.2 mg/dL (7.8-10.44); Carbon Dioxide 28 mmol/L (22-29); Chloride 102 mmol/L (98-107); Estimated GFR-MDRD Greater than 90; Glucose 79 mg/dL (70-105); Sodium 137 mmol/L (136-145)
--- NOTE | 2020-07-25 06:21 | PDOC.FM ---
- Subjective Subjective: Pt resting comfortably in bed this AM. No acute events overnight. States that he is feeling okay this morning. - Objective Vital Signs & Weight: Vital Signs (12 hours) Temp Pulse Resp BP Pulse Ox 07/25/20 05:20 98.9 F 80 26 H 103/67 98 07/25/20 00:35 98.7 F 78 24 H 111/70 98 07/24/20 20:00 99.6 F 85 20 109/69 96 Weight Admit Weight 81.6 kg Weight 71.169 kg Most Recent Monitor Data Heart Rate from ECG 89 NIBP 120/77 NIBP BP-Mean 91 Respiration from ECG 29 SpO2 100 I&O: 07/23/20 07/24/20 07/25/20 06:59 06:59 06:59 Intake Total 800 1240 780 Output Total 425 1405 880 Balance 375 -165 100 Result Diagrams: 07/24/20 03:00 07/25/20 05:17 Phys Exam - Physical Examination Constitutional: NAD HEENT: PERRLA Neck: no nodes Respiratory: no wheezing, no rales, no rhonchi, clear to auscultation bilateral poor inspiratory effort Cardiovascular: RRR, no significant murmur, no rub Gastrointestinal: soft, non-tender, no distention Musculoskeletal: no edema, pulses present Neurological: non-focal, normal sensation, moves all 4 limbs Lymphatic: no nodes Psychiatric: normal affect, A&O x 3 Skin: no rash, normal turgor, cap refill <2 seconds Dx/Plan - Plan Plan: 54 y/o male who recently immigrated from [place] for medical treatment who presented with COVID-19 Pneumonia: Resp: Acute Hypoxic Resp Failure and Sepsis 2/2 COVID PNA, improving Pneumomediastinum/pneumothorax, improving - dcd steroids Solumedrol 20mg IV BID, d/cd fludrocortisone - converted IV to PO steroids - d/c daily CXR - currently saturating at 90% on 1L NC CV: HTN, undiagnosed previously - amlodipine started 07/22 GI: Transaminitis, resolved Hepatitis A antibody positive Constipation, resolved - GI PPx: Pantoprazole. Continue while on steroids. - Diet: Carb Consistent - Speech consulted, rec mechanical soft. ADAT. - Continue daily Miralax while on opioids Endo: Type 2 Diabetes Mellitus - Mild SSI - Glargine 27 units daily while on steroids. Heme/ID: Indeterminate quantiferon Gold Thrombocytopenia, resolved Covid PNA, improved - VTE PPx: fondaparinux - Consider PPD as outpatient; Recent travel from [place] - ID consulted, appreciate recs - s/p course of ceftriaxone, azithromycin, doxycycline Psych/Neuro: Unspecified anxiety disorder, improved - wean fentanyl patch - Paxil started 07/24 PCP: Marianne. Code: Full IVF: TKO Lines/Tubes: 2 PIVs. Dispo: Continue to wean O2 as tolerated. PT/OT recommend Rehab vs SNU. Awaiting insurance auth for [facility] in [place]. Pt will need 2-3 weeks of steroids with a taper and full dose anticoagulation for 1-2 weeks with PPX dosing for the next 3 months. Addendum - Attending - Attending Attestation Date/Time: 07/25/20 9679 I personally evaluated the patient and discussed the management with Dr. Orta. I agree with the History, Examination, Assessment and Plan documented above with any addition or exceptions noted below.
[2020-07-25] MEDS: Amlodipine 5 MG TAB PO SCH (08:28)
[2020-07-25] MEDS: predniSONE 20 MG TAB PO SCH (08:28)
[2020-07-25] MEDS: PARoxetine 20 MG TAB PO SCH (08:28)
[2020-07-25] MEDS: Apixaban 5 MG TAB PO SCH ×2 (08:29→20:13)
[2020-07-25] MEDS: Polyethylene Glycol 3350 17 GM Packet PER TUBE SCH (08:29)
[2020-07-25] MEDS: Diabetic Tussin 200 MG/10 ML UDCUP PO PRN ×2 (08:30→20:12)
[2020-07-25] MEDS: Insulin Glargine 27 UNITS in Pre-Filled Syringe 1 EACH SC SCH (08:58)
[2020-07-26] MEDS: Diabetic Tussin 200 MG/10 ML UDCUP PO PRN ×3 (03:49→19:51)
[2020-07-26 05:48] LABS: Anion Gap 11 mmol/L (10-20); BUN (Urea Nitrogen) 18 mg/dL (8.4-25.7); Calc. Creatinine Clearance 125 mL/min (70-130); Carbon Dioxide 27 mmol/L (22-29); Chloride 101 mmol/L (98-107); Estimated GFR-MDRD Greater than 90; Glucose 78 mg/dL (70-105); Potassium 3.8 mmol/L (3.5-5.1); Sodium 135 mmol/L (136-145)
--- NOTE | 2020-07-26 06:01 | PDOC.FM ---
- Subjective Subjective: Pt resting comfortably in bed this AM. No acute events overnight. States that is he not having trouble breathing at the moment. - Objective Vital Signs & Weight: Vital Signs (12 hours) Temp Pulse Resp BP Pulse Ox 07/26/20 04:00 97.7 F 80 18 105/66 936 H 07/26/20 00:00 98.6 F 76 18 103/63 97 07/25/20 20:00 98.4 F 74 18 110/70 98 Weight Admit Weight 81.6 kg Weight 71.169 kg Most Recent Monitor Data Heart Rate from ECG 89 NIBP 120/77 NIBP BP-Mean 91 Respiration from ECG 29 SpO2 100 I&O: 07/24/20 07/25/20 07/26/20 06:59 06:59 06:59 Intake Total 1240 780 620 Output Total 1405 880 850 Balance -165 -100 -230 Result Diagrams: 07/24/20 03:00 07/26/20 05:02 Phys Exam - Physical Examination Constitutional: NAD HEENT: PERRLA Neck: no nodes Respiratory: no wheezing, no rales, no rhonchi, clear to auscultation bilateral NC currently Cardiovascular: RRR, no significant murmur, no rub Gastrointestinal: soft, non-tender, no distention Musculoskeletal: no edema, pulses present Neurological: non-focal, normal sensation, moves all 4 limbs Psychiatric: normal affect, A&O x 3 Skin: no rash, normal turgor, cap refill <2 seconds Dx/Plan - Plan Plan: 54 y/o male who recently immigrated from [place] for medical treatment who presented with COVID-19 Pneumonia: Resp: Acute Hypoxic Resp Failure and Sepsis 2/2 COVID PNA, improving Pneumomediastinum/pneumothorax, improving - dcd steroids Solumedrol 20mg IV BID, d/cd fludrocortisone - converted IV to PO steroids - d/c daily CXR - currently saturating at 90% on 1L NC CV: HTN, undiagnosed previously - amlodipine started 07/22 GI: Transaminitis, resolved Hepatitis A antibody positive Constipation, resolved - GI PPx: Pantoprazole. Continue while on steroids. - Diet: Carb Consistent - Speech consulted, rec mechanical soft. ADAT. - Continue daily Miralax while on opioids Endo: Type 2 Diabetes Mellitus - Mild SSI - Glargine 27 units daily while on steroids. Heme/ID: Indeterminate quantiferon Gold Thrombocytopenia, resolved Covid PNA, improved - VTE PPx: fondaparinux - Consider PPD as outpatient; Recent travel from [place] - ID consulted, appreciate recs - s/p course of ceftriaxone, azithromycin, doxycycline Psych/Neuro: Unspecified anxiety disorder, improved - wean fentanyl patch - Paxil started 07/24 PCP: Marianne. Code: Full IVF: TKO Lines/Tubes: 2 PIVs. Dispo: Continue to wean O2 as tolerated. PT/OT recommend Rehab vs SNU. Awaiting insurance auth for [facility] in [place]. Pt will need 2-3 weeks of steroids with a taper and full dose anticoagulation for 1-2 weeks with PPX dosing for the next 3 months. Addendum - Attending - Attending Attestation Date/Time: 07/26/20 [id number] I personally evaluated the patient and discussed the management with Dr. Orta. I agree with the History, Examination, Assessment and Plan documented above with any addition or exceptions noted below.
[2020-07-26] MEDS: Polyethylene Glycol 3350 17 GM Packet PER TUBE SCH (07:50)
[2020-07-26] MEDS: Amlodipine 5 MG TAB PO SCH (07:51)
[2020-07-26] MEDS: Insulin Glargine 27 UNITS in Pre-Filled Syringe 1 EACH SC SCH (07:51)
[2020-07-26] MEDS: predniSONE 20 MG TAB PO SCH (07:51)
[2020-07-26] MEDS: Apixaban 5 MG TAB PO SCH ×2 (07:51→19:51)
[2020-07-26] MEDS: PARoxetine 20 MG TAB PO SCH (07:51)
[2020-07-26] MEDS: Benzonatate 100 MG CAP PO PRN (19:51)
[2020-07-26] MEDS: hydrOXYzine 25 MG TAB PO PRN (19:51)
--- NOTE | 2020-07-27 06:02 | PDOC.FM ---
- Subjective Subjective: Pt resting comfortably in bed this AM. No acute events overnight. States that his breathing is okay this AM, says that it is harder this AM. Slept okay last night. Ate well. Worked with PT yesterday. - Objective Vital Signs & Weight: Vital Signs (12 hours) Temp Pulse Resp BP Pulse Ox 07/26/20 20:00 98.7 F 73 18 100/64 94 L Weight Admit Weight 81.6 kg Weight 69.967 kg Most Recent Monitor Data Heart Rate from ECG 89 NIBP 120/77 NIBP BP-Mean 91 Respiration from ECG 29 SpO2 100 I&O: 07/25/20 07/26/20 07/27/20 06:59 06:59 06:59 Intake Total 780 620 840 Output Total 880 1325 750 Balance -100 -705 90 Result Diagrams: 07/24/20 03:00 07/27/20 05:18 Phys Exam - Physical Examination Constitutional: NAD anxious appearing HEENT: PERRLA Neck: no nodes Respiratory: no wheezing Cardiovascular: RRR, no significant murmur, no rub Gastrointestinal: soft, non-tender, no distention Musculoskeletal: no edema Neurological: non-focal, normal sensation, moves all 4 limbs Lymphatic: no nodes Psychiatric: normal affect, A&O x 3 Skin: no rash, normal turgor, cap refill <2 seconds Dx/Plan - Plan Plan: 54 y/o male who recently immigrated from [place] for medical treatment who presented with COVID-19 Pneumonia: Resp: Acute Hypoxic Resp Failure and Sepsis 2/2 COVID PNA, improving Pneumomediastinum/pneumothorax, improving - dcd steroids Solumedrol 20mg IV BID, d/cd fludrocortisone - converted IV to PO steroids - d/c daily CXR - currently saturating at 94% on 1.5L CV: HTN, undiagnosed previously - amlodipine started 07/22 GI: Transaminitis, resolved Hepatitis A antibody positive Constipation, resolved - GI PPx: Pantoprazole. Continue while on steroids. - Diet: Carb Consistent - Speech consulted, rec mechanical soft. ADAT. - Continue daily Miralax while on opioids Endo: Type 2 Diabetes Mellitus - Mild SSI - Glargine 27 units daily while on steroids. Heme/ID: Indeterminate quantiferon Gold Thrombocytopenia, resolved Covid PNA, improved - VTE PPx: fondaparinux - Consider PPD as outpatient; Recent travel from [place] - ID consulted, appreciate recs - s/p course of ceftriaxone, azithromycin, doxycycline Psych/Neuro: Unspecified anxiety disorder, improved - wean fentanyl patch - Paxil started 07/24 PCP: Marianne. Code: Full IVF: TKO Lines/Tubes: 2 PIVs. Dispo: Continue to wean O2 as tolerated. PT/OT recommend Rehab vs SNU. Awaiting insurance auth for [facility] in [place]. Pt will need 2-3 weeks of steroids with a taper and full dose anticoagulation for 1-2 weeks with PPX dosing for the next 3 months. Addendum - Attending - Attending Attestation Date/Time: 07/27/20 2744 I personally evaluated the patient and discussed the management with Dr. Orta. I agree with the History, Examination, Assessment and Plan documented above with any addition or exceptions noted below.
[2020-07-27 06:13] LABS: Anion Gap 11 mmol/L (10-20); BUN (Urea Nitrogen) 17 mg/dL (8.4-25.7); Calc. Creatinine Clearance 126 mL/min (70-130); Calcium 8.1 mg/dL (7.8-10.44); Carbon Dioxide 26 mmol/L (22-29); Chloride 102 mmol/L (98-107); Estimated GFR-MDRD Greater than 90; Glucose 75 mg/dL (70-105); Potassium 3.6 mmol/L (3.5-5.1); Sodium 135 mmol/L (136-145)
[2020-07-27] MEDS: PARoxetine 20 MG TAB PO SCH (07:53)
[2020-07-27] MEDS: predniSONE 20 MG TAB PO SCH (07:53)
[2020-07-27] MEDS: Amlodipine 5 MG TAB PO SCH (07:53)
[2020-07-27] MEDS: Insulin Glargine 27 UNITS in Pre-Filled Syringe 1 EACH SC SCH (07:54)
[2020-07-27] MEDS: Polyethylene Glycol 3350 17 GM Packet PER TUBE SCH (07:54)
[2020-07-27] MEDS: Apixaban 5 MG TAB PO SCH ×2 (07:54→19:43)
[2020-07-27] MEDS: hydrOXYzine 25 MG TAB PO PRN (19:43)
[2020-07-27] MEDS: Diabetic Tussin 200 MG/10 ML UDCUP PO PRN (19:43)
[2020-07-27] MEDS: Benzonatate 100 MG CAP PO PRN (19:43)
--- NOTE | 2020-07-28 06:00 | PDOC.FM ---
- Subjective Subjective: Pt resting comfortably in bed this AM. No acute events overnight. States that he is not having problems with his breathing this AM. States that he is finding it difficult to do basic things like sit on the side of the bed without feeling out of breath and is anxious about this. - Objective Vital Signs & Weight: Vital Signs (12 hours) Temp Pulse Resp BP Pulse Ox 07/27/20 20:59 97 07/27/20 20:20 98.6 F 75 18 108/71 97 Weight Admit Weight 81.6 kg Weight 70.025 kg Most Recent Monitor Data Heart Rate from ECG 89 NIBP 120/77 NIBP BP-Mean 91 Respiration from ECG 29 SpO2 100 I&O: 07/26/20 07/27/20 07/28/20 06:59 06:59 06:59 Intake Total 620 1310 1380 Output Total 1325 1350 1500 Balance -705 -40 -120 Result Diagrams: 07/24/20 03:00 07/28/20 05:01 Phys Exam - Physical Examination Constitutional: NAD HEENT: PERRLA NC on 1.5L this AM saturating at 100% Neck: no nodes Respiratory: no wheezing, no rales, no rhonchi, clear to auscultation bilateral Cardiovascular: RRR, no significant murmur Gastrointestinal: soft, non-tender, no distention Musculoskeletal: no edema, pulses present Neurological: non-focal, normal sensation Lymphatic: no nodes Psychiatric: normal affect, A&O x 3 Skin: no rash, normal turgor, cap refill <2 seconds Dx/Plan - Plan Plan: 54 y/o male who recently immigrated from [place] for medical treatment who presented with COVID-19 Pneumonia: Resp: Acute Hypoxic Resp Failure and Sepsis 2/2 COVID PNA, improving Pneumomediastinum/pneumothorax, improving - dcd steroids Solumedrol 20mg IV BID, d/cd fludrocortisone - converted IV to PO steroids - d/c daily CXR - currently saturating at 94% on 1.5L CV: HTN, undiagnosed previously - amlodipine started 07/22 GI: Transaminitis, resolved Hepatitis A antibody positive Constipation, resolved - GI PPx: Pantoprazole. Continue while on steroids. - Diet: Carb Consistent - Speech consulted, rec mechanical soft. ADAT. - Continue daily Miralax while on opioids Endo: Type 2 Diabetes Mellitus - Mild SSI - Glargine 27 units daily while on steroids. Heme/ID: Indeterminate quantiferon Gold Thrombocytopenia, resolved Covid PNA, improved - VTE PPx: fondaparinux - Consider PPD as outpatient; Recent travel from [place] - ID consulted, appreciate recs - s/p course of ceftriaxone, azithromycin, doxycycline Psych/Neuro: Unspecified anxiety disorder, improved - wean fentanyl patch - Paxil started 07/24 PCP: Marianne. Code: Full IVF: TKO Lines/Tubes: 2 PIVs. Dispo: Continue to wean O2 as tolerated. PT/OT recommend Rehab vs SNU. Awaiting insurance auth for [facility] in [place]. Pt will need 2-3 weeks of steroids with a taper and full dose anticoagulation for 1-2 weeks with PPX dosing for the next 3 months.
[2020-07-28 06:09] LABS: Anion Gap 12 mmol/L (10-20); BUN (Urea Nitrogen) 16 mg/dL (8.4-25.7); Calc. Creatinine Clearance 107 mL/min (70-130); Calcium 8.2 mg/dL (7.8-10.44); Carbon Dioxide 27 mmol/L (22-29); Chloride 101 mmol/L (98-107); Estimated GFR-MDRD Greater than 90; Glucose 146 mg/dL (70-105); Potassium 3.6 mmol/L (3.5-5.1); Sodium 136 mmol/L (136-145)
[2020-07-28] MEDS: predniSONE 20 MG TAB PO SCH (08:31)
[2020-07-28] MEDS: PARoxetine 20 MG TAB PO SCH (08:31)
[2020-07-28] MEDS: Apixaban 5 MG TAB PO SCH ×2 (08:32→20:13)
[2020-07-28] MEDS: Amlodipine 5 MG TAB PO SCH (08:32)
[2020-07-28] MEDS: Insulin Glargine 27 UNITS in Pre-Filled Syringe 1 EACH SC SCH (08:33)
[2020-07-28] MEDS: Polyethylene Glycol 3350 17 GM Packet PER TUBE SCH (09:21)
--- NOTE | 2020-07-28 13:48 | PRG ---
DATE OF SERVICE: 07/28/2020 Mr. Reynoso is resting comfortably in bed, in no acute distress. He has had been followed for COVID pneumonia and is making a good improvement, and complaining mostly of just some generalized weakness. I have read the note of Dr. Lydia Orta and agree with her assessment plan. Job ID: [id number]
[2020-07-28] MEDS: HumaLOG 300 UNITS/3 ML VIAL SC PRN (17:25)
[2020-07-28] MEDS: Benzonatate 100 MG CAP PO PRN (20:13)
[2020-07-28] MEDS: hydrOXYzine 25 MG TAB PO PRN (20:13)
[2020-07-28] MEDS: Diabetic Tussin 200 MG/10 ML UDCUP PO PRN (20:13)
[2020-07-29 06:07] LABS: Anion Gap 10 mmol/L (10-20); BUN (Urea Nitrogen) 16 mg/dL (8.4-25.7); Calc. Creatinine Clearance 123 mL/min (70-130); Carbon Dioxide 29 mmol/L (22-29); Chloride 103 mmol/L (98-107); Estimated GFR-MDRD Greater than 90; Glucose 81 mg/dL (70-105); Potassium 3.7 mmol/L (3.5-5.1); Sodium 138 mmol/L (136-145)
--- NOTE | 2020-07-29 06:32 | PDOC.FM ---
- Subjective Subjective: Pt resting comfortably in bed this AM. States that he is having no issues with his breathing this AM. Is doing his exercises in bed as we talk. No acute events overnight. - Objective Vital Signs & Weight: Vital Signs (12 hours) Temp Pulse Resp BP Pulse Ox 07/29/20 04:01 98.6 F 89 20 95/63 96 07/28/20 20:43 94 L 07/28/20 20:00 98.4 F 101 H 20 98/68 94 L Weight Admit Weight 81.6 kg Weight 70.025 kg Most Recent Monitor Data Heart Rate from ECG 89 NIBP 120/77 NIBP BP-Mean 91 Respiration from ECG 29 SpO2 100 I&O: 07/27/20 07/28/20 07/29/20 06:59 06:59 06:59 Intake Total 1310 1380 1370 Output Total 1350 1500 600 Balance -40 -120 770 Result Diagrams: 07/24/20 03:00 07/29/20 05:29 Phys Exam - Physical Examination Constitutional: NAD HEENT: PERRLA Neck: no nodes Respiratory: no rales, no rhonchi, wheezing present, clear to auscultation bilateral slight expiratory wheezes heard Cardiovascular: RRR, no significant murmur, no rub Gastrointestinal: soft, non-tender, no distention, positive bowel sounds Musculoskeletal: no edema, pulses present Neurological: non-focal, normal sensation, moves all 4 limbs Lymphatic: no nodes Psychiatric: normal affect, A&O x 3 Skin: no rash, normal turgor, cap refill <2 seconds Dx/Plan - Plan Plan: 54 y/o male who recently immigrated from [place] for medical treatment who presented with COVID-19 Pneumonia: Resp: Acute Hypoxic Resp Failure and Sepsis 2/2 COVID PNA, improving Pneumomediastinum/pneumothorax, improving - dcd steroids Solumedrol 20mg IV BID, d/cd fludrocortisone - converted IV to PO steroids - d/c daily CXR - currently saturating at 94% on 1-1.5L CV: HTN, undiagnosed previously - amlodipine started 07/22 GI: Transaminitis, resolved Hepatitis A antibody positive Constipation, resolved - GI PPx: Pantoprazole. Continue while on steroids. - Diet: Carb Consistent - Speech consulted, rec mechanical soft. ADAT. - Continue daily Miralax while on opioids Endo: Type 2 Diabetes Mellitus - Mild SSI - Glargine 27 units daily while on steroids. Heme/ID: Indeterminate quantiferon Gold Thrombocytopenia, resolved Covid PNA, improved - VTE PPx: fondaparinux - Consider PPD as outpatient; Recent travel from [place] - ID consulted, appreciate recs - s/p course of ceftriaxone, azithromycin, doxycycline Psych/Neuro: Unspecified anxiety disorder, improved - wean fentanyl patch - Paxil started 07/24 Code: Full IVF: TKO Lines/Tubes: 2 PIVs. PCP: Marianne Ornelaso as of 07/29: Continue to wean O2 as tolerated. PT/OT recommend Rehab vs SNU. As of yesterday we were awaiting [facility] approval however, they are out of network for patient. [facility] referral was made yesterday and now we will awaiting approval for this. Plan for steroid taper: 07/24 -- 07/31 40mg QAM, 07/31--08/07 20mg QAM, 08/07--08/14 10mg QAM Plan of anticoagulation: 07/24--07/31 5mg BID, 07/31--next 3 months 5mg QAM.
[2020-07-29] MEDS: Polyethylene Glycol 3350 17 GM Packet PER TUBE SCH (08:08)
[2020-07-29] MEDS: Amlodipine 5 MG TAB PO SCH (08:09)
[2020-07-29] MEDS: predniSONE 20 MG TAB PO SCH (08:09)
[2020-07-29] MEDS: PARoxetine 20 MG TAB PO SCH (08:09)
[2020-07-29] MEDS: Apixaban 5 MG TAB PO SCH ×2 (08:09→21:04)
[2020-07-29] MEDS: Insulin Glargine 27 UNITS in Pre-Filled Syringe 1 EACH SC SCH (08:10)
[2020-07-29] MEDS: HumaLOG 300 UNITS/3 ML VIAL SC PRN ×2 (12:41→16:41)
[2020-07-29] MEDS: Benzonatate 100 MG CAP PO PRN (21:07)
--- NOTE | 2020-07-30 04:54 | PRG ---
DATE OF SERVICE: 07/29/2020 ADDENDUM: This is an addendum to the note of Dr. Lydia Orta. I have examined Reynoso and agree with the assessment and plan of Dr. Lydia Orta. Job ID: [id number]
--- NOTE | 2020-07-30 05:57 | PDOC.FM ---
- Subjective Subjective: Pt resting comfortably in bed this AM. No acute events overnight. States that his breathing is improved today, states that his voice seems more clear this AM. Is hungry this AM. - Objective Vital Signs & Weight: Vital Signs (12 hours) Temp Pulse Resp BP Pulse Ox 07/30/20 04:00 97.8 F 76 20 95/69 93 L 07/30/20 00:00 97.9 F 70 20 143/79 H 93 L 07/29/20 20:00 97.6 F 108 H 20 105/66 94 L Weight Admit Weight 81.6 kg Weight 70.025 kg Most Recent Monitor Data Heart Rate from ECG 89 NIBP 120/77 NIBP BP-Mean 91 Respiration from ECG 29 SpO2 100 I&O: 07/28/20 07/29/20 07/30/20 06:59 06:59 06:59 Intake Total 1380 1370 1000 Output Total 1500 600 Balance -093 807 9734 Result Diagrams: 07/24/20 03:00 07/30/20 05:36 Phys Exam - Physical Examination Constitutional: NAD HEENT: PERRLA Neck: no nodes Respiratory: no wheezing, no rales, no rhonchi, clear to auscultation bilateral Cardiovascular: RRR, no significant murmur, no rub Gastrointestinal: soft, non-tender, no distention Musculoskeletal: no edema, pulses present Neurological: non-focal, normal sensation, moves all 4 limbs Lymphatic: no nodes Psychiatric: normal affect, A&O x 3 Skin: no rash, normal turgor, cap refill <2 seconds Dx/Plan - Plan Plan: 54 y/o male who recently immigrated from [place] for medical treatment who presented with COVID-19 Pneumonia: Resp: Acute Hypoxic Resp Failure and Sepsis 2/2 COVID PNA, improving Pneumomediastinum/pneumothorax, improving - dcd steroids Solumedrol 20mg IV BID, d/cd fludrocortisone - d/c daily CXR - converted IV to PO steroids - currently saturating at 93-4% on 1-1.5L CV: HTN, undiagnosed previously - amlodipine started 07/22 GI: Transaminitis, resolved Hepatitis A antibody positive Constipation, resolved - GI PPx: Pantoprazole. Continue while on steroids. - Diet: Carb Consistent - Speech consulted, rec mechanical soft. ADAT. - Continue daily Miralax while on opioids Endo: Type 2 Diabetes Mellitus - Mild SSI - Glargine 27 units daily while on steroids. Heme/ID: Indeterminate quantiferon Gold Thrombocytopenia, resolved Covid PNA, improved - VTE PPx: fondaparinux - Consider PPD as outpatient; Recent travel from [place] - ID consulted, appreciate recs - s/p course of ceftriaxone, azithromycin, doxycycline Psych/Neuro: Unspecified anxiety disorder, improved - wean fentanyl patch - Paxil started 07/24 Code: Full IVF: TKO Lines/Tubes: 2 PIVs. PCP: Marianne Ornelaso as of 07/30: Continue to wean O2 as tolerated. PT/OT recommend Rehab vs SNU. [facility] was out of network so now [facility] referral was made 07/28; he has been medically approved and placement is now approved and we are awaiting bed availability tomorrow. Plan for steroid taper: 07/24 -- 07/31 40mg QAM, 07/31--08/07 20mg QAM, 08/07--08/14 10mg QAM Plan of anticoagulation: 07/24--07/31 5mg BID, 07/31--next 3 months 5mg QAM.
[2020-07-30 06:11] LABS: Anion Gap 12 mmol/L (10-20); BUN (Urea Nitrogen) 16 mg/dL (8.4-25.7); Calc. Creatinine Clearance 130 mL/min (70-130); Calcium 7.9 mg/dL (7.8-10.44); Carbon Dioxide 26 mmol/L (22-29); Chloride 104 mmol/L (98-107); Estimated GFR-MDRD Greater than 90; Glucose 81 mg/dL (70-105); Potassium 3.3 mmol/L (3.5-5.1); Sodium 139 mmol/L (136-145)
[2020-07-30] MEDS: predniSONE 20 MG TAB PO SCH (08:48)
[2020-07-30] MEDS: Amlodipine 5 MG TAB PO SCH (08:48)
[2020-07-30] MEDS: Apixaban 5 MG TAB PO SCH ×2 (08:48→20:17)
[2020-07-30] MEDS: Polyethylene Glycol 3350 17 GM Packet PER TUBE SCH ×2 (08:49→08:52)
[2020-07-30] MEDS: PARoxetine 20 MG TAB PO SCH (08:49)
[2020-07-30] MEDS: Insulin Glargine 27 UNITS in Pre-Filled Syringe 1 EACH SC SCH (09:35)
[2020-07-30] MEDS ORDERED: Potassium Chloride 20 MEQ TAB PO SCH (09:45)
--- NOTE | 2020-07-30 12:22 | PRG ---
DATE OF SERVICE: 07/30/2020 Mr. Reynoso continues to look fine and in good spirits. We are awaiting placement hopefully tomorrow. Job ID: [id number]
[2020-07-30] MEDS: HumaLOG 300 UNITS/3 ML VIAL SC PRN ×2 (12:28→17:11)
[2020-07-30] MEDS: Diabetic Tussin 200 MG/10 ML UDCUP PO PRN (20:27)
--- NOTE | 2020-07-31 05:33 | PDOC.FM ---
- Subjective Subjective: Pt resting comfortably in bed this AM. No acute events overnight. States that he did not sleep last night as he was concerned about the future of his treatment and recovery. - Objective Vital Signs & Weight: Vital Signs (12 hours) Temp Pulse Resp BP Pulse Ox 07/31/20 00:30 97.8 F 71 22 H 104/68 98 07/30/20 20:00 96 Weight Admit Weight 81.6 kg Weight 66.48 kg Most Recent Monitor Data Heart Rate from ECG 89 NIBP 120/77 NIBP BP-Mean 91 Respiration from ECG 29 SpO2 100 I&O: 07/29/20 07/30/20 07/31/20 06:59 06:59 06:59 Intake Total 1370 1000 480 Output Total 600 Balance 770 1000 480 Result Diagrams: 07/24/20 03:00 07/31/20 05:29 Phys Exam - Physical Examination Constitutional: NAD HEENT: PERRLA Neck: no nodes Respiratory: no wheezing, no rales, no rhonchi, clear to auscultation bilateral Cardiovascular: RRR, no significant murmur, no rub Gastrointestinal: soft, non-tender, no distention, positive bowel sounds Musculoskeletal: no edema, pulses present Neurological: non-focal, normal sensation, moves all 4 limbs Lymphatic: no nodes Psychiatric: normal affect, A&O x 3 Skin: no rash, normal turgor, cap refill <2 seconds Dx/Plan - Plan Plan: 54 y/o male who recently immigrated from [place] for medical treatment who presented with COVID-19 Pneumonia: Resp: Acute Hypoxic Resp Failure and Sepsis 2/2 COVID PNA, improving Pneumomediastinum/pneumothorax, improving - dcd steroids Solumedrol 20mg IV BID, d/cd fludrocortisone - d/c daily CXR - converted IV to PO steroids - currently saturating at 93-4% on 1-1.5L CV: HTN, undiagnosed previously - amlodipine started 07/22 GI: Transaminitis, resolved Hepatitis A antibody positive Constipation, resolved - GI PPx: Pantoprazole. Continue while on steroids. - Diet: Carb Consistent - Speech consulted, rec mechanical soft. ADAT. - Continue daily Miralax while on opioids Endo: Type 2 Diabetes Mellitus - Mild SSI - Glargine 27 units daily while on steroids. Heme/ID: Indeterminate quantiferon Gold Thrombocytopenia, resolved Covid PNA, improved - VTE PPx: fondaparinux - Consider PPD as outpatient; Recent travel from [place] - ID consulted, appreciate recs - s/p course of ceftriaxone, azithromycin, doxycycline Psych/Neuro: Unspecified anxiety disorder, improved - wean fentanyl patch - Paxil started 07/24 Code: Full IVF: TKO Lines/Tubes: 2 PIVs. PCP: Marianne Ornealso as of 07/31: Rehab approved. Will have bed availability today. D/c today. Plan for steroid taper: 07/24 -- 07/31 40mg QAM, 07/31--08/07 20mg QAM, 08/07--08/14 10mg QAM Plan of anticoagulation: 07/24--07/31 5mg BID, 07/31--next 3 months 5mg QAM.
[2020-07-31 06:10] LABS: Anion Gap 13 mmol/L (10-20); BUN (Urea Nitrogen) 15 mg/dL (8.4-25.7); Calc. Creatinine Clearance 120 mL/min (70-130); Calcium 7.9 mg/dL (7.8-10.44); Carbon Dioxide 24 mmol/L (22-29); Chloride 106 mmol/L (98-107); Estimated GFR-MDRD Greater than 90; Glucose 94 mg/dL (70-105); Potassium 3.8 mmol/L (3.5-5.1); Sodium 139 mmol/L (136-145)
[2020-07-31] MEDS: predniSONE 20 MG TAB PO SCH (08:26)
[2020-07-31] MEDS: Amlodipine 5 MG TAB PO SCH (08:28)
[2020-07-31] MEDS: PARoxetine 20 MG TAB PO SCH (08:28)
[2020-07-31] MEDS: Apixaban 5 MG TAB PO SCH (08:28)
[2020-07-31] MEDS: Insulin Glargine 27 UNITS in Pre-Filled Syringe 1 EACH SC SCH (08:29)
[2020-07-31] MEDS: Polyethylene Glycol 3350 17 GM Packet PER TUBE SCH (08:30)
[2020-07-31 12:00] VITALS: BP 116/77; TEMP 98.1
[2020-07-31 14:07] VITALS: BMI 22.1
--- NOTE | 2020-08-02 00:36 | DIS ---
DATE OF ADMISSION: 06/28/2020 DATE OF DISCHARGE: 07/31/2020 ADMITTING ATTENDING: Ella Norman MD DISCHARGE ATTENDING: Hunter Novoa MD CONSULTS: Dr. Delbert Velasco of Pulmonology. PROCEDURES: Initial chest x-ray done on 06/28/2020, showed chronic lung parenchymal changes. Daily chest x-rays were done from 07/06/2020 to 07/24/2020. 07/06/2020 chest x-ray read slight worsening of lung aeration. On 07/24/2020, chest x-ray showed scattered parenchymal opacities that are stable. Small bilateral pleural effusions persist. No pneumothorax is evident. Stable exam. CTA done on 06/28/2020 showed no evidence of pulmonary artery embolism to the level of the lobar arteries. Ground-glass opacities as above. Correlating with COVID-19 pneumonia. On 07/08/2020, chest tube was inserted due to COVID pneumonia and left pneumothorax. PRIMARY DIAGNOSES: Acute hypoxic respiratory failure and sepsis secondary to COVID pneumonia. SECONDARY DIAGNOSES: Hypertension, type 2 diabetes, thrombocytopenia, transaminitis, and unspecified anxiety. DISCHARGE MEDICATIONS: 1. Atarax 25 mg q.6. 2. Fentanyl 25 mcg q.3 daily. 3. Eliquis 5 mg for three months 4. Lantus 27 units q.a.m. 5. MiraLAX 17 g daily. 6. Norvasc 5 mg daily. 7. Paxil 20 mg daily. 8. Prednisone 20 mg for 7 days and 10 mg for the additional 7 days. 9. Protonix 40 mg daily. 10. Proventil 2 puffs q.4 p.r.n. 11. Tessalon q.4 p.r.n. 100 mg. 12. Tums 1000 mg p.o. q.4 p.r.n. DISCONTINUED MEDICATIONS: None. HISTORY OF PRESENT ILLNESS/HOSPITAL COURSE: This is a 54-year-old gentleman, who was admitted for over a month ago due to COVID pneumonia. On day of admission, the patient stated that he had a recent travel to [place] and history of pneumonia and presented with shortness of breath. Two weeks prior to admission, he had a fever for two days and temperature max of 101, which had resolved. The day prior to admission, he started having shortness of breath, worsening with activity. While he was in [place] he had symptoms of sore throat and diagnosed with possible pneumonia, was given antibiotics for five days, which he had finished. Ever since he had worsening of symptoms with a productive cough with white sputum and no wheezing. He denied nausea, vomiting, diarrhea, headache, vision changes, dysuria, sick contacts, chest pain, or palpitations. The patient was initially admitted to the hospital service. However, the patient was transferred to the ICU on 07/05/2020 due to increased work of breathing, high oxygen requirements, and severe anxiety. He was transferred for BiPAP initially and then on 07/07/2020 due to increased work of breathing, the patient was intubated and sedated and started on high-dose steroids, anticoagulations. The patient was intubated and sedated from 07/07 to 07/18 with continued weaning and monitoring for improvement. On 07/08/2020, there was subcutaneous crepitus felt along his chest and neck. Chest x-ray showed pneumomediastinum and left pneumothorax. Pt had a left-sided chest tube placed due to this. Of note, the patient has had difficulty with anxiety throughout his hospitalization even with intubation and was sedated with propofol and fentanyl during the course of his illness. It was found that sedation with Precedex caused him much anxiety. The patient was on doxycycline from 07/06 to 07/23. He was initially on IV steroids and was not a candidate for remdesivir or convalescent plasma. He was on therapeutic Lovenox initially and was transitioned to fondaparinux on 07/14 due to the patient's platelets being less than 100. The patient's chest tube was removed on 07/19/2020. He was successfully extubated and continued to improve with weaning off oxygen. The patient then was transitioned out of the ICU to [facility] on 07/25/2020 and was stable enough so the medicine for COVID precautions was taken off him as it has been over 14 days since his diagnosis of COVID pneumonia. The patient was doing well, was transitioned to p.o. steroids and eventually from therapuetic to prophylactic doses of Eliquis. He remained on 1-1.5 L nasal cannula. He was working well with Physical Therapy, however, he was still weak and having difficulty with daily tasks that he had normally performed well. The patient's anxiety was evident in this regard. It was discussed with the patient extensively along with his that it would take quite a while for him to recover well. DISPOSITION: Stable. DISCHARGE INSTRUCTIONS: Location, inpatient rehab. Diet, regular. Activity, as tolerated. Follow up in 14 days with primary care physician, Dr. Lopes. Job ID: [id number] [id number]
== END 2020-07-31 15:08 | DRG 870 ==
LOC: ERS 00:27 → T4-A 05:50 → CCU 07-04 23:31 → IMCU/EMU 07-22 19:06 → T4-B 07-24 18:22
PROVIDERS: ADMIT Family Medicine; ATTEND Family Medicine
PROC: 8E0ZXY6 Isolation (ICD-10-PCS; 2020-06-28)
PROC: 5A1955Z Respiratory Ventilation, Greater than 96 Consecutive Hours (ICD-10-PCS; principal; 2020-07-06)
PROC: 0BH17EZ Insertion of Endotracheal Airway into Trachea, Via Natural or Artificial Opening (ICD-10-PCS; 2020-07-06)
PROC: 0W9B30Z Drainage of Left Pleural Cavity with Drainage Device, Percutaneous Approach (ICD-10-PCS; 2020-07-08)
DX: A41.89 Other specified sepsis (principal); J12.89 Other viral pneumonia; J96.01 Acute respiratory failure with hypoxia; U07.1 COVID-19; J93.9 Pneumothorax, unspecified; D69.6 Thrombocytopenia, unspecified; K21.9 Gastro-esophageal reflux disease without esophagitis; R74.0 Nonspecific elevation of levels of transaminase and lactic acid dehydrogenase [LDH]; E11.9 Type 2 diabetes mellitus without complications; Z90.49 Acquired absence of other specified parts of digestive tract; F41.9 Anxiety disorder, unspecified; D64.9 Anemia, unspecified; K59.00 Constipation, unspecified; R00.1 Bradycardia, unspecified; I10 Essential (primary) hypertension; R45.1 Restlessness and agitation
CPT/HCPCS: 36415; 36416; 36600; 71045; 71275; 80048; 80053; 82550; 82728; 82805; 83036; 83605; 83615; 83690; 83880; 84145; 84484; 85025; 85060; 85379; 85520; 86140; 86480; 86706; 86709; 86769; 86803; 87040; 87340; 87449; 87633; 87899; 93005; 94002; 94003; 94660; 96365; 96367; 96372; 96375; C9113; J0456; J0696; J1100; J1650; J1652; J1815; J2060; J2270; J2704; J2920; J2930; J3010; J3490; J7512; Q0161; Q9967; U0002

== ENCOUNTER 2023-08-04 07:47 | Emergency (ER) | payer BC | END 2023-08-04 08:26 | disposition home or self-care (01) | LOC: ERS 07:47 | DX: R73.9 Hyperglycemia, unspecified (principal); I10 Essential (primary) hypertension | CPT/HCPCS: 36416; 99284 ==

== ENCOUNTER 2023-09-02 06:53 | Outpatient (CLI) | payer BC | END 2023-09-02 06:54 | disposition home or self-care (01) | LOC: BICULT 06:53 | PROVIDERS: ATTEND Family Medicine | DX: R10.84 Generalized abdominal pain (principal) | CPT/HCPCS: 76700 ==